=== PATIENT | female | born 1955 | race Caucasian/White ===

== ENCOUNTER 2024-03-21 20:56 | Inpatient (IN) | payer OTHER, MEDICARE, SELFPAY ==
[2024-03-21 20:56] VITALS: BP 125/92; PULSE 107; RESP 16; TEMP 36.5; O2SAT 98; BMI 25.4
--- NOTE | 2024-03-21 21:00 | EKG12_ITS ---
Test Reason : CP Blood Pressure : */* mmHG Vent. Rate : 107 BPM Atrial Rate : 107 BPM P-R Int : 178 ms QRS Dur : 78 ms QT Int : 356 ms P-R-T Axes : 72 39 55 degrees QTcB Int : 475 ms Sinus tachycardia Otherwise normal ECG Confirmed by ROBERT KUHN, TANNER ([id number]), order editor HARRISON GRAY ([id number]) on 03/22/2024 8:23:36 AM Referred By: Confirmed By: TANNER JONES MD
--- NOTE | 2024-03-21 21:18 | RAD_ITS ---
STUDY: X-RAY CHEST REASON FOR EXAM: Female, 68 years old. chest pain TECHNIQUE: AP portable COMPARISON: None. FINDINGS: The lungs are clear and expanded. There is no demonstrated pleural abnormality. Normal size heart. Normal mediastinum and mily. Normal visualized pulmonary arteries. Normal visualized aortic arch and descending thoracic aorta. Normal visualized thoracic spine. Normal visualized ribs, clavicles, and shoulders. There is no demonstrated abnormality of the visualized soft tissue structures of the upper abdomen. RAD/Chest 1 View (Portable) IMPRESSION: Normal x-ray examination of the chest. Electronically Signed: Tee Henry MD at 21:33 EST ,
[2024-03-21 21:24] VITALS: O2SAT 98
[2024-03-21 21:29] LABS: Absolute Lymphocyte Count 0.79 X10^3/uL (0.83-4.51); Absolute Neutrophil Count 4.3 X10^3/uL (2.0-7.7); Basophil# 0.06 X10^3/uL; Basophil% 1.1 % (0-1); Eosinophil# 0.05 X10^3/uL; Eosinophils% 0.9 % (0-5); Hematocrit 42.2 % (37-47); Hemoglobin 14.2 g/dL (12.0-15.0); Lymphocyte # 0.79 X10^3/ul (0.83-4.51); Lymphocyte % 13.9 % (19-41); Mean Corp Hgb Conc 33.6 g/dL (32-36); Mean Corpuscular Hgb 29.3 pg (27.0-32.0); Mean Platelet Vol. 11.1 fl (6.2-12.0); Monocyte# 0.44 X10^3/uL; Monocyte% 7.7 % (0-10); NRBC Flagged by Analyzer 0 % (0-5); Neutrophil # 4.34 X10^3/uL (2.7-7.7); Platelet Count 190 K/mm3 (150-450); RBC Distribution Width CV 13.2 % (11.6-14.6); RBC Distribution Width SD 41.5 fl (35.1-43.9); Red Blood Count 4.85 M/mm3 (4.2-5.4); White Blood Count 5.7 K/mm3 (4.4-11.0)
--- NOTE | 2024-03-21 21:37 | ED.VIS.CHEST ---
HPI History of Present Illness Chief Complaint: Chest Pain Informant: patient Onset/Context/Timing Onset: Today Activity at onset: gradual Timing: Continuous Quality: Positive for Heaviness Location: Substernal Current Severity: Gone Maximum Severity: Mild Worsened By: Nothing Relieved By: Nothing Associated Symptoms: Positive for Dyspnea and Palpitations; Negative for Nausea, Vomiting, Diaphoresis, Cough, Fever, Lightheadedness or Acid Reflux Narrative Narrative: 68-year-old female history of anemia. No cardiac history. Driving to work she said when she parked her car and was walking into work she felt palpitations and chest tightness. Symptoms began around 630. She had the rest when she got into the locker room. Told him she did not think she could work and came in the emergency department to be evaluated. Denies any history of cardiac disease. No prior cardiac cath. She has not had recent chest pain or shortness of breath. She has had no recent exertional chest pain or exertional dyspnea. No history of DVT or PE. No risk factors. Denies any recent travel, surgery or immobilization. No calf pain or swelling. No hemoptysis. Prior Similar Symptoms: No Recent Illness/Hospitalization: No PE Risk Factors: Negative for Recent Travel/Surgery, Recent Immobilization, Prior DVT or PE, Cancer or OCP + Smoking + >/=35 TAD Risk Factors: Negative for Marfan's Syndrome [facility] Medical History Anemia Home Medications ?Medication ?Instructions ?Recorded ?Last Taken ?Type ferrous sulfate 325 mg (65 mg 325 mg PO BID 03/21/24 Unknown History iron) tablet Allergy/AdvReac Type Severity Reaction Status Date / Time No Known Allergies Allergy Verified 03/21/24 20:56 Social History Smoking Status: Former smoker ROS ROS ED ROS Narrative Exertional chest pain and dyspnea at night. Not recently otherwise. Constitutional Constitutional ED: Denies chills or fever(s) Eyes Eyes: Reports none ENT ENT ED: Denies ear pain Cardiovascular Cardiovascular: Reports as per HPI, chest pain and palpitations Respiratory/Chest Respiratory/Chest: Reports dyspnea on exertion; Denies cough Gastrointestinal Gastrointestinal: Denies abdominal pain or constipation Genitourinary Genitourinary ED: Denies dysuria or hematuria Musculoskeletal Musculoskeletal: Denies arthralgias Integumentary Denies abscess Neurologic Neurologic: Denies headache(s) Psychiatric Psychiatric: Denies anxiety or depression Endocrine Endocrinology: Denies cold intolerance Hematologic/Lymphatic Hematologic/Lymphatic: Denies easy bleeding Allergic/Immunologic Allergic/Immunologic ED: Denies mouth swelling, tongue swelling or urticaria EXAM Physical Exam Narrative Exam Narrative: 68-year-old female vital signs stable afebrile. Does not look septic toxic any distress. Pulse ox 98% on room air no hypoxia. Currently symptom-free pain-free. H EENT exam unremarkable. Neck nontender no JVD. Lungs clear to auscultation bilaterally. Heart regular rhythm no murmur. Chest wall nontender. Abdomen soft nontender. Moving all 4 extremities. Calves are nontender without edema or cords. Equal symmetrical radial pulses. Neurologically she is awake and alert no focal motor deficits. Answering questions and following commands. Const Vital Signs: 03/21/24 20:56 03/21/24 21:24 03/21/24 21:25 Temperature 97.7 F L Temperature Source Oral Pulse Rate 107 H Respiratory Rate 16 Respiratory Effort Normal Non-Labored Blood Pressure 125/92 H Blood Pressure Mean 103 Pulse Ox 98 98 Oxygen Delivery Method Room Air Room Air 03/21/24 21:45 03/21/24 22:00 03/21/24 23:00 Temperature Temperature Source Pulse Rate 102 H 100 82 Respiratory Rate 16 15 21 H Respiratory Effort Blood Pressure 128/85 H 127/90 H 131/95 H Blood Pressure Mean 99 102 107 Pulse Ox Oxygen Delivery Method Positive well nourished and well developed; Negative for obese, cachectic, contractures or unkempt General Appearance ED: well developed and NAD; Negative for unkempt, cachectic, contractures or pallor Nutritional Appearance: Negative for cachectic or obese HEENT Reports moist mucous membranes normocephalic and atraumatic Eyes PERRL and EOMs intact bilaterally Neck no lymphadenopathy, supple and no JVD General: Negative for tenderness Chest Wall inspection of chest normal and palpation of chest normal Chest: Negative for tenderness Resp normal respiratory effort and clear to auscultation bilaterally Effort and Inspection: Negative for respiratory distress Auscultation: Negative for rales, rhonchi, wheezes or diminished lung sounds Cardio regular rhythm, S1 normal heart sound, S2 normal heart sound and no murmurs Rate: Negative for bradycardia Rhythm: Negative for abnormal rhythm Peripheral Pulses: pulses 2+ throughout GI normal to inspection, nondistended, normoactive bowel sounds, soft to palpation, non-tender, non-distended and no masses Back/Spine no CVA tenderness and no thoracic nor lumbar tenderness General Back: Negative for CVA tenderness Cervical Spine: Negative for cervical spine tenderness Extremity normal to inspection General Extremety ED: Negative for edema or pulses abnormal General Extremity: Negative for edema or pulses abnormal Neuro oriented x3 and CN's II-XII intact bilaterally Sensorium / Orientation: awake, alert, oriented to person, oriented to place and oriented to time; Negative for confused, lethargic or stuporous Motor Exam: strength 5/5 throughout Psych mental status grossly normal Appearance: Negative for unkempt Attitude: No agitated Mood & Affect: Negative for depressed, anxious or tearful Skin no rashes or lesions noted and no wounds General Skin Exam: Negative for jaundice or pallor Rashes: No rashes noted Trauma: Negative for abrasion or laceration MDM MDM MDM Narrative Medical decision making narrative: 68-year-old female with exertional chest pain shortness of breath tonight. Undergo cardiac workup. Exam is benign. Currently symptom-free pain-free. No cardiac history. No history or risk factors of DVT or PE. Repeat exam patient is doing well at 11:07 PM. Pain-free. Given her exertional symptoms, exertional chest pain and elevated troponin I will speak to the hospitalist about admitting her for further evaluation and workup. History & Record Review Discussion w/independent historian: Patient Additional record(s) reviewed:: Prior inpatient record, Prior outpatient record, Prior ED visit and Prior labs Lab Data Attestation: I reviewed the patient's lab results. Lab results narrative: CBC shows a white count of 5. H&H 14 and 42. Platelets 190. Chest x-ray normal. Chemistry shows At 9. BUN 24 creatinine 0.8. Glucose 139. Troponin elevated 98. Labs: Laboratory Results - last 24 hr 03/21/24 21:12 WBC 5.7 RBC 4.85 Hgb 14.2 Hct 42.2 MCV 87.0 MCH 29.3 MCHC 33.6 RDW Std Deviation 41.5 RDW Coeff of Trevor 13.2 Plt Count 190 MPV 11.1 Immature Gran % (Auto) 0.400 Neut % (Auto) 76.0 H Lymph % (Auto) 13.9 L [place] % (Auto) 7.7 Eos % (Auto) 0.9 Baso % (Auto) 1.1 H Absolute Neuts (auto) 4.3 Absolute Lymphs (auto) 0.79 L Nucleated RBC % 0 Sodium 138 Potassium 3.8 Chloride 106 Carbon Dioxide 23.0 Anion Gap 9 BUN 24 H Creatinine 0.86 Estim Creat Clear Calc 62.05 Est GFR (MDRD) Af Amer 85 Est GFR (MDRD) Non-Af 70 BUN/Creatinine Ratio 28.0 H Glucose 139 H Calcium 9.4 Troponin I High Sens 98 H Radiography Chest X-Ray - ED: 1 View, Read by ED Physician, Normal, Heart, Lungs, Mediastinum, Bony Structures, No Acute Disease and Chronic Changes Diagnostic Testing: Clinical Impression(s) from Imaging Studies Chest X-Ray 03/21/24 21:18 IMPRESSION: Normal x-ray examination of the chest. Electronically Signed: Tee Henry MD at 21:33 EST Reading Location ID and State: [facility] / [place] Tel , Service support , Chest x-ray, portable, single view interpreted by myself and radiologist shows no acute abnormality. Normal cardiac silhouette. Normal mediastinum Rhythm Strip Rhythm Strip: Sinus Tach Rate: 107 Ectopy: None EKG Initial EKG: Attestation: I personally reviewed and interpreted this EKG as follows: Interpretation: Sinus Rhythm, No Acute Injury Pattern and Sinus Tachycardia Comments: Sinus tachycardia rate of 107 no acute signs of HI or ischemia. Discharge Plan Triage Chief Complaint: Chest Pain ED Provider: Kirby Weir Dx/Rx/DC Orders Clinical Impression: Chest pain, Elevated troponin Prescriptions: No Action ferrous sulfate 325 mg (65 mg iron) tablet 325 mg PO BID Primary Care Provider: Care Physician,No Primary Referrals: Care Physician,No Primary [Primary Care Provider] - Print Language: Syriac Disposition Disposition: [facility]
[2024-03-21 21:45] VITALS: BP 128/85; PULSE 102; RESP 16
--- OUTSIDE RECORDS SUMMARY | 2024-03-21 21:49 | XMS RPT_ITS | CCD ---
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 Role Phone Pcp, No Primary Care Provider Unavailabl e Sheets DO, Priya Foley Primary Care Provider SHEETS, PRIYA Foley Referring Unavailable SHEETS, PRIYA Foley Primary Care Unavailable SHEETS, PRIYA Foley Attending Unavailable SHEETS, PRIYA Foley Primary Care Unavailable MELVIN CARDENAS Admitting Unavailable WHINMELVIN LEWIS Attending Unavailable SHEETS, PRIYA Foley Attending Unavailable SHEETS, PRIYA Foley Referring Unavailable SHEETS, PRIYA Foley Referring Unavailable SHEETS, PRIYA Foley Primary Care Unavailable Medications Completed/Discontinued Medications Medication Drug Class(es) Dates Sig (Normalized) Sig (Original) acetaminophen 500 mg oral tablet (2 sources) Start: 03-13-2022 take 2 tablets by mouth every eight hours as needed acetaminophen (TYLENOL) 500 mg tablet Take 2 tablets by mouth every 8 hours as needed for pain or fever (specify) (temp 101F). 0 03/13/2022 Active Comment on above: Take 2 tablets by mo ut every 8 hours as needed for pain or fever (specify) (temp 101F). ascorbic acid 500 mg oral tablet (3 sources) Vitamin C Start: 03-13-2022 End: 04-20-2022 take 1 tablet by mouth twice daily at mealtime ascorbic acid, vitamin C, (VITAMIN C) 500 mg tablet Indications: Other iron deficiency anemias Take 1 tablet by mouth twice daily with meals. 180 tablet 1 04/20/2022 Active Comment on above: Take 1 tablet by jolie twice daily with meals. ferrous sulfate 325 mg oral tablet (3 sources) Start: 03-13-2022 End: 04-20-2022 take 1 tablet by mouth twice daily at mealtime ferrous sulfate 325 mg (65 mg iron) tablet Indications: Other iron deficiency anemias Take 1 tablet by mouth twice daily with meals. 180 tablet 1 04/20/2022 Active Comment on above: Take 1 tablet by jolie th twice daily with meals. pantoprazole 40 mg delayed release oral tablet (3 sources) Proton Pump Inhibitor Start: 03-14-2022 End: 04-20-2022 take 1 tablet by mouth once daily, then take 6 tablets by mouth in the morning pantoprazole DR (PROTONIX) 40 mg tablet Indications: GERD without esophagitis Take 1 tablet by mouth DAILY (6 AM). 90 tablet 1 04/20/2022 Active Comment on above: Take 1 tablet by jolie th DAILY (6 AM). Problems Problem Classification Problem Date Documented Date Episodic/Chronic Deficiency and other anemia (2 sources) Anemia; Translations: [Anemia, unspecified] Onset: 03-12-2022 03-12-2022 Episodic Deficiency and other anemia (3 sources) Iron deficiency anemia; Translations: [Other iron deficiency anemias] Onset: 03-12-2022 Episodic Deficiency and other anemia (2 sources) Other iron deficiency anemias; Translations: [Other iron deficiency anemias] Onset: 03-23-2022 Episodic Deficiency and other anemia (1 source) Anemia, unspecified; Translations: [Anemia, unspecified type] Onset: 03-12-2022 Episodic Esophageal disorders (2 sources) Gastroesophageal reflux disease without esophagitis; Translations: [Gastro-esophageal reflux disease without esophagitis] Onset: 04-20-2022 Chronic Other circulatory disease (2 sources) Elevated blood-pressure reading without diagnosis of hypertension; Translations: [Elevated blood-pressure reading, without diagnosis of hypertension] Episodic Other circulatory disease (1 source) Elevated blood-pressure reading, without diagnosis of hypertension; Translations: [Elevated blood pressure reading without diagnosis of hypertension] Onset: 04-20-2022 Episodic Other infections; including parasitic (2 sources) History of hepatitis C; Translations: [Personal history of other infectious and parasitic diseases] Onset: 03-12-2022 03-12-2022 Episodic Residual codes; unclassified (1 source) Acquired absence of both cervix and uterus; Translations: [Status post hysterectomy] Onset: 04-20-2022 Episodic Spondylosis; intervertebral disc disorders; other back problems (2 sources) Backache; Translations: [Dorsalgia, unspecified] Onset: 03-12-2022 03-12-2022 Episodic Unclassified (1 source) Acute left-sided low back pain without sciatica; Translations: [Acute left-sided low back pain without sciatica] Onset: 03-12-2022 Results Test Name Value Interpretation Reference Range Facility [facility] 04-20-2022 CNOV Office Visit (AGFAMP JOAN) ANA JONES ([id number]) 1955 F Date Time Provider Department 04/20/22 10:40 AM PRIYA BLOUNT During your visit today, we recorded the following information about you: Temperature Pulse Respiration Blood pressure 97.6 degrees 61/minute 16/minute 136/84 Weight Height 67.6 kg 1.607 m Priya Blount DO 04/20/2022 10:55 AM Signed SUBJECTIVE: 66 year old female for annual routine pap and checkup. I have fully reviewed the past medical, surgical, social and family history and updated the Histories section of [facility]. She has a history of anemia Her fecal occult blood test was negative She is taking iron once a day, rather than twice. Her Hb has been improving over the past month She had a total hysterectomy, no longer needs pap tests. She eats a healthy diet, and is going to start riding her indoor [employer] bicycle regularly. She does not use tobacco or nicotine products. No LMP recorded. ALLERGIES No Known Allergies Current Outpatient Medications Medication Sig Dispense Refill acetaminophen (TYLENOL) 500 mg tablet Take 2 tablets by mouth every 8 hours as needed for pain or fever (specify) (temp 101F). ascorbic acid, vitamin C, (VITAMIN C) 500 mg tablet Take 1 tablet by mouth twice daily with meals. 60 tablet 0 ferrous sulfate 325 mg (65 mg iron) tablet Take 1 tablet by mouth twice daily with meals. [address] (PROTONIX) 40 mg tablet Take 1 tablet by mouth DAILY (6 AM). 30 tablet 0 No current facility-administered medications for this visit. ACTIVE PROBLEM LIST Absolute Anemia History of Hepatitis C Acute Left-Sided Back Pain Social History Tobacco Use Smoking status: Former Types: Cigarettes Smokeless tobacco: Never Substance Use Topics Alcohol use: Yes Comment: very rarely. Drug use: Yes Types: Marijuana Family History Problem Relation Age of Onset Hypertension Mother Hypertension Father Heart Attack Father had to have a triple bypass other (throat cancer) Father Reviewed past medical history, family history and surgeries. All medications and supplements were reviewed with the patient. REVIEW OF SYSTEMS GENERAL: No weight loss, malaise or fevers HEENT: Negative for frequent or significant headaches, No changes in hearing or vision, no nose bleeds or other nasal problems NECK: Negative for lumps, goiter, pain and significant neck swelling RESPIRATORY: Negative for cough, hemoptysis, wheezing, COPD, dyspnea or shortness of breath CARDIOVASCULAR: Negative for chest pain, leg swelling, hypertension, CHF or palpitations GI: No nausea, vomiting, or diarrhea : No history of dysuria, frequency or incontinence MUSCULOSKELETAL: Negative for joint pain or swelling, back pain or muscle pain SKIN: Negative for lesions, rash, and itching PSYCH: Negative for sleep disturbance, mood disorder and recent psychosocial stressors HEMATOLOGY/LYMPHOLOGY: Negative for prolonged bleeding, bruising easily or swollen nodes ENDOCRINE: Negative for cold or heat intolerance, polyuria, polydipsia and goiter NEURO: No history of headaches, syncope, paralysis, seizures or tremors PHYSICAL EXAMINATION: BP 146/90 Pulse 61 Temp 36.4 ?C (97.6 ?F) Resp 16 Ht 160.7 cm (5' 3.25 ) Wt 67.6 kg (149 lb) SpO2 100% BMI 26.19 kg/m? General appearance: Well appearing, alert, in no acute distress, well-hydrated, well nourished. Skin: Skin color, texture, turgor normal, no suspicious rashes or lesions Head: Normocephalic, no masses, lesions, tenderness or abnormalities Eyes: Anicteric sclera. Pupils are equally round and reactive to light. Extraocular movements are intact. Ears: External ears normal, canals clear Nose/Sinuses: Nares normal, septum midline, mucosa normal, no drainage or sinus tenderness Oropharynx: Lips, mucosa, and tongue normal, teeth and gums normal, oropharynx normal Neck: Supple, no adenopathy; thyroid symmetric, normal size, no bruits Back: Normal exam Lungs: Lungs clear to auscultation. No wheezing, rhonchi, rales. Heart: RRR without murmur, gallop, or rubs. No ectopy Abdomen: Normal abdominal exam, Abdomen soft, non-tender. Bowel sounds normal. No masses, organomegaly Extremities: No deformities, edema, skin discoloration, clubbing or cyanosis. Good capillary refill. Musculoskeletal: No joint swelling, deformity, or tenderness Peripheral pulses: Normal Neuro: Gait normal. Reflexes normal and symmetric. Sensation grossly intact. ASSESSMENT/PLAN: 1. Well adult exam - ICD9: V70.0, ICD10: Z00.00 (primary diagnosis) - Counseled on healthy diet and regular exercise - Calcium intake with supplements or by diet of 1000 mg/day for under 50, 1204-0939 mg/day for 50+ 2. Other iron deficiency anemias - ICD9: 280.8, ICD10: D50.8 - ASCORBIC ACID (VITAMIN C) 500 MG TABLET (more content not included)... Normal [facility] HEMOGLOBIN (HGB)on Hemoglobin (Bld) [Mass/Vol] 13.0 g/dL 11.5 - 15.5 g/dL [facility] Hgb Bld-ncon 04-20-2022 Hemoglobin (Bld) [Mass/Vol] 13.0 g/dL Normal 11.5-15.5 [facility] Comment on above: Order Comment: Speci men Type: BLOOD SPECIMEN Ordering Facility: [facility] Address: [address] [place] [id number] Performed By: #### 7 18-7 #### [facility] CLIA [id number] [address] [place] [id number] [place] CNOVon 03-23-2022 CNOV Office Visit (SHELLY FRANCO) ANA JONES ([id number]) 1955 F Date Time Provider Department 03/23/22 2:20 PM PRIYA BLOUNT During your visit today, we recorded the following information about you: Temperature Pulse Respiration Blood pressure 98.4 degrees 79/minute 16/minute 130/90 Weight Height 66.1 kg 1.607 m Priya Blount DO 03/23/2022 3:07 PM Signed Subjective HPI Pt is here for acute visit after hospitalization. She does not plan on establishing with this office. She would like to establish with primary care at [facility] in [place]. She injured her back at work, was seen in the ED on 03/12/22 She was hospitalized at [facility] from 03/12 to 03/13 for an incidental finding of anemia. Fecal occult blood test was negative. Hb was 6.5 in the ED, was rechecked before discharge and was 8.1. She received 1 unit of PRBCs, and was started on PPIs, Vitamin c and oral iron, which she is taking as directed. It was recommended that the patient follow up with her GI for anemia. She has seen Dr. Farris in the past for hepatitis c, and plans to follow up with him. She has been feeling OK since leaving the hospital. Her blood pressure is mildly elevated today. She has white coat syndrome. She does not use any tobacco or nicotine products. ALLERGIES No Known Allergies Current Outpatient Medications Medication Sig Dispense Refill acetaminophen (TYLENOL) 500 mg tablet Take 2 tablets by mouth every 8 hours as needed for pain or fever (specify) (temp 101F). ascorbic acid, vitamin C, (VITAMIN C) 500 mg tablet Take 1 tablet by mouth twice daily with meals. 60 tablet 0 ferrous sulfate 325 mg (65 mg iron) tablet Take 1 tablet by mouth twice daily with meals. [address] (PROTONIX) 40 mg tablet Take 1 tablet by mouth DAILY (6 AM). 30 tablet 0 No current facility-administered medications for this visit. ACTIVE PROBLEM LIST Anemia History of Hepatitis C Acute Left-Sided Back Pain Social History Tobacco Use Smoking status: Former Types: Cigarettes Smokeless tobacco: Never Substance Use Topics Alcohol use: Yes Comment: very rarely. Drug use: Yes Types: Marijuana Family History Problem Relation Age of Onset Hypertension Mother Hypertension Father Heart Attack Father had to have a triple bypass other (throat cancer) Father Reviewed past medical history, family history and surgeries. All medications and supplements were reviewed with the patient. Review of Systems Constitutional: Negative for chills, diaphoresis, fever, malaise/fatigue and weight loss. HENT: Negative for ear pain and hearing loss. Eyes: Negative for blurred vision and double vision. Respiratory: Negative for cough and shortness of breath. Cardiovascular: Negative for chest pain, palpitations and leg swelling. Gastrointestinal: Negative for constipation, diarrhea and heartburn. Genitourinary: Negative for dysuria and frequency. Musculoskeletal: Negative for back pain, falls, joint pain and myalgias. Skin: Negative for itching and rash. Neurological: Negative for dizziness, weakness and headaches. Endo/Heme/Allergies: Does not bruise/bleed easily. Psychiatric/Behavioral: Negative for depression and substance abuse. The patient does not have insomnia. Objective BP 128/88 Pulse 79 Temp 36.9 ?C (98.4 ?F) Resp 16 Ht 160.7 cm (5' 3.25 ) Wt 66.1 kg (145 lb 12.8 oz) SpO2 99% BMI 25.62 kg/m? Physical Exam Constitutional: Appearance: Normal appearance. HENT: Head: Normocephalic and atraumatic. Nose: Nose normal. Mouth/Throat: Mouth: Mucous membranes are moist. Dentition: Normal dentition. Eyes: General: Lids are normal. Extraocular Movements: Extraocular movements intact. Conjunctiva/sclera: Conjunctivae normal. Pupils: Pupils are equal, round, and reactive to light. Neck: Thyroid: No thyroid mass or thyromegaly. Vascular: No carotid bruit. Trachea: Phonation normal. Cardiovascular: Rate and Rhythm: Normal rate and regular rhythm. Heart sounds: Normal heart sounds. No murmur heard. No friction rub. No gallop. Pulmonary: Effort: Pulmonary effort is normal. Breath sounds: Normal breath sounds. No wheezing or rales. Abdominal: General: Bowel sounds are normal. There is no distension. Palpations: Abdomen is soft. There is no mass. Tenderness: There is no abdominal tenderness. Musculoskeletal: General: No swelling or tenderness. Normal range of motion. Cervical back: Normal range of motion and neck supple. No edema. Lymphadenopathy: Cervical: No cervical adenopathy. Skin: General: Skin is warm and dry. Findings: No erythema or rash. Nails: There is no clubbing. Neurological: Mental Status: She is alert and oriented to person, place, and time. Cranial Nerves: No cranial nerve deficit. Motor: Motor fu (more content not included)... Normal [facility] HEMOGLOBIN (HGB)on Hemoglobin (Bld) [Mass/Vol] 10.9 g/dL Low 11.5 - 15.5 g/dL [facility] Hgb Bld-mCncon 03-23-2022 Hemoglobin (Bld) [Mass/Vol] 10.9 g/dL Low 11.5-15.5 [facility] Comment on above: Order Comment: Speci men Type: BLOOD SPECIMEN Ordering Facility: [facility] Address: [address] [place] [address] Performed By: #### 7 18-7 #### [facility] CLIA [id number] [address] [place] [address] [place] Basic metabolic 2000 panelon 03-13-2022 Anion gap [Moles/Vol] 7 mmol/L Low 9-18 [facility] Comment on above: Order Comment: Speci men Type: BLOOD SPECIMEN Ordering Facility: [facility] Address: [address] [address] Performed By: #### 7 18-7 #### [facility] CLIA [id number] [address] [place] [address] [place] Calcium [Mass/Vol] 8.7 mg/dL Normal 8.5-10.2 [facility] Comment on above: Order Comment: Speci men Type: BLOOD SPECIMEN Ordering Facility: [facility] Address: [address] [address] Performed By: #### 7 18-7 #### [facility] CLIA [id number] [address] [place] [address] [place] Chloride [Moles/Vol] 107 mmol/L High 97-105 [facility] Comment on above: Order Comment: Speci men Type: BLOOD SPECIMEN Ordering Facility: [facility] Address: [address] [address] Performed By: #### 7 18-7 #### [facility] CLIA [id number] [address] [place] [address] [place] CO2 [Moles/Vol] 24 mmol/L Normal 22-30 [facility] Comment on above: Order Comment: Rudy waddell Type: BLOOD SPECIMEN Ordering Facility: [facility] Address: [address] [place] [address] Performed By: #### 7 18-7 #### [facility] CLIA [id number] [address] [place] Creatinine [Mass/Vol] 0.67 mg/dL Normal 0.58-0.96 [facility] Comment on above: Order Comment: Rudy waddell Type: BLOOD SPECIMEN Ordering Facility: [facility] Address: [address] [place] [address] Performed By: #### 7 18-7 #### [facility] CLIA [id number] [address] [place] [address] ESTIMATED GLOMERULAR FILTRATION RATE 97 mL/min/1.73m??? Normal >=60 [facility] Comment on above: Order Comment: Rudy waddell Type: BLOOD SPECIMEN Ordering Facility: [facility] Address: [address] [place] [address] Result Comment: Kavita mated Glomerular Filtration Rate (eGFR) is calculated using the 2020 CKD-EPI creatinine equation. This equation utilizes serum creatinine, sex, and age as parameters. The creatinine assay has traceable calibration to isotope dilution-mass spectrometry. Refer to KDIGO guidelines for clinical interpretation. In patients with unstable renal function, e.g. those with acute kidney injury, the eGFR may not accurately reflect actual GFR. Performed By: #### 7 18-7 #### [facility] CLIA [id number] [address] [place] [address] [facility] Glucose [Mass/Vol] 91 mg/dL Normal 74-99 [facility] Comment on above: Order Comment: Rudy waddell Type: BLOOD SPECIMEN Ordering Facility: [facility] Address: [address] [place] [address] Result Comment: The [place] Diabetes Association (ADA) provides guidance for cutoff values for fasting glucose and random glucose. The ADA defines fasting as no caloric intake for at least 8 hours. Fasting plasma glucose results between 100 to 125 mg/dL indicate increased risk for diabetes (prediabetes). Fasting plasma glucose results greater than or equal to 126 mg/dL meet the criteria for diagnosis of diabetes. In the absence of unequivocal hyperglycemia, results should be confirmed by repeat testing. In a patient with classic symptoms of hyperglycemia or hyperglycemic crisis, random plasma glucose results greater than or equal to 200 mg/dL meet the criteria for diagnosis of diabetes. Reference: Standards of Medical Care in Diabetes 2016, [place] Diabetes Association. Diabetes Care. 2016.39(Suppl 1). Performed By: #### 7 18-7 #### [facility] CLIA [id number] [address] [place] [address] [place] Potassium [Moles/Vol] 4.4 mmol/L Normal 3.7-5.1 [facility] Comment on above: Order Comment: Speci men Type: BLOOD SPECIMEN Ordering Facility: [facility] Address: [address] [address] Performed By: #### 7 18-7 #### [facility] CLIA [id number] [address] [place] [address] [place] Sodium [Moles/Vol] 138 mmol/L Normal 136-144 [facility] Comment on above: Order Comment: Speci men Type: BLOOD SPECIMEN Ordering Facility: [facility] Address: [address] [address] Performed By: #### 7 18-7 #### [facility] CLIA [id number] [address] [place] [address] [place] Urea nitrogen [Mass/Vol] 17 mg/dL Normal 7-21 [facility] Comment on above: Order Comment: Speci men Type: BLOOD SPECIMEN Ordering Facility: [facility] Address: [address] [address] Performed By: #### 7 18-7 #### [facility] CLIA [id number] [address] [place] CBC panel Auto (Bld)on 03-13 Erythrocyte distribution width (RBC) [Ratio] 16.4 % High 11.5-15.0 [facility] Comment on above: Order Comment: Speci men Type: BLOOD SPECIMEN Ordering Facility: [facility] Address: [address] [place] [address] Performed By: #### 7 18-7 #### [facility] CLIA [id number] [address] [place] [address] Hematocrit (Bld) [Volume fraction] 26.3 % Low 36.0-46.0 [facility] Comment on above: Order Comment: Speci men Type: BLOOD SPECIMEN Ordering Facility: [facility] Address: [address] [place] [address] Performed By: #### 7 18-7 #### [facility] CLIA [id number] [address] [place] [address] Hemoglobin (Bld) [Mass/Vol] 8.1 g/dL Low 11.5-15.5 [facility] Comment on above: Order Comment: Speci men Type: BLOOD SPECIMEN Ordering Facility: [facility] Address: [address] [place] [address] Performed By: #### 7 18-7 #### [facility] CLIA [id number] [address] [place] [address] [place] MCH (RBC) [Entitic mass] 24.8 pg Low 26.0-34.0 [facility] Comment on above: Order Comment: Speci men Type: BLOOD SPECIMEN Ordering Facility: [facility] Address: [address] [place] [address] Performed By: #### 7 18-7 #### [facility] CLIA [id number] [address] [place] [address] [place] MCHC (RBC) [Mass/Vol] 30.8 g/dL Normal 30.5-36.0 [facility] Comment on above: Order Comment: Speci men Type: BLOOD SPECIMEN Ordering Facility: [facility] Address: [address] [place] [address] Performed By: #### 7 18-7 #### [facility] CLIA [id number] [address] [place] [address] [place] MCV (RBC) [Entitic vol] 80.4 fL Normal 80.0-100.0 [facility] Comment on above: Order Comment: Speci men Type: BLOOD SPECIMEN Ordering Facility: [facility] Address: [address] [place] [address] Performed By: #### 7 18-7 #### [facility] CLIA [id number] [address] [place] [address] [place] Platelet mean volume (Bld) [Entitic vol] 10.6 fL Normal 9.0-12.7 [facility] Comment on above: Order Comment: Speci men Type: BLOOD SPECIMEN Ordering Facility: [facility] Address: [address] [place] [address] Performed By: #### 7 18-7 #### [facility] CLIA [id number] [address] [place] [address] [place] Platelets (Bld) [#/Vol] 206 10*3/uL Normal 150-400 [facility] Comment on above: Order Comment: Speci men Type: BLOOD SPECIMEN Ordering Facility: [facility] Address: [address] [place] [address] Performed By: #### 7 18-7 #### [facility] CLIA [id number] [address] [place] [address] [place] RBC (Bld) [#/Vol] 3.27 10*6/uL Low 3.90-5.20 [facility] Comment on above: Order Comment: Speci men Type: BLOOD SPECIMEN Ordering Facility: [facility] Address: [address] [place] [address] Performed By: #### 7 18-7 #### [facility] CLIA [id number] [address] [place] [address] [facility] [place] WBC (Bld) [#/Vol] 3.64 10*3/uL Low 3.70-11.00 [facility] Comment on above: Order Comment: Rudy waddell Type: BLOOD SPECIMEN Ordering Facility: [facility] Address: [address] [place] [address] [place] [address] Performed By: #### 7 18-7 #### [facility] CLIA [id number] [address] [place] [address] [facility] CNDSon 03-13-2022 CNDS HNO ID: [id number] Author: Lizzette Su APRN.[employer] Service: Hospital Medicine Author Type: Nurse Practitioner Type: Discharge Summary Filed: 03/13/2022 12:24 PM Note Text: Attestation signed by Melvin Cardenas MD at 05/05/2022 3:19 PM Attending Note I have personally reviewed the SAM note and have discussed the management of this patient with the SAM. Other additions or changes: As edited Signature: Melvin Cardenas MD, [facility], [facility] Date: March 12, 2022 Time: 7:19 PM DISCHARGE SUMMARY PATIENT NAME: Ana Jones Code Status: Not on file Date: 03/13/2022 Highest Readmission Risk Score: 14 The 30 day readmissions risk score is derived from an internally validated risk model which evaluates patient level characteristics, utilization history, medication orders and lab results up until the day of discharge. Patients with a score of 40 or above are considered highest risk for readmission. Specific patient level drivers will be listed at the bottom of the summary. Admission Information Admission Information ADMIT DATE: 03/12/2022 DISCHARGE DATE: 03/13/2022 MY DOCTORS AND MEDICAL TEAM: My Main Hospital Doctor: Melvin Cardenas MD Primary Care Provider: No Pcp My Medical Team Members: Treatment Team: Attending Provider: Melvin Cardenas MD MY CONDITION AT DISCHARGE: Stable REASON I WAS IN THE HOSPITAL: back pain, anemia SUMMARY OF WHAT HAPPENED WHILE I WAS IN THE HOSPITAL: Patient was admitted for back pain, anemia. You presented to [facility] for back pain which began at work leading you with inability to ambulate. You denied any radiation of pain without any associated urologic symptoms/paresthesias or bowel incontinence. Imagining was negative for acute findings. You initial lab work did reveal anemia with no findings of bleeding from bowel/bladder or other identifiable sources. Your last colonoscopy was around 10 years ago, you endorsed use of increased NSAID over the past week. You received 1 units of red blood cells with repeat blood work completed showing increased in counts, you also had a iron panel drawn which supported iron deficiency anemia and were started on oral iron supplementation, vitamin C tablets and a PPI for gastric protection. You state that your back pain has decreased and recommend continuing to rest with alternations between ice/heat. You may return to work on Friday 03/16 without any restrictions. It is recommended that you follow-up with your GI provider in 1 week for further evaluation of iron deficiency anemia. You will also need to establish with a PCP within 1 week of discharge. Contact information has been provider to you through care management. OTHER PROBLEMS/DIAGNOSIS: Principal Problem: Anemia Active Problems: History of hepatitis C Acute left-sided back pain Resolved Problems: * No resolved hospital problems. * OPERATIONS PERFORMED WHILE IN THE HOSPITAL: None IMPORTANT TEST/PROCEDURES: CT Scan TEST RESULTS NOT AVAILABLE AT THIS TIME: No pending results Discharge Disposition Activity When You Leave the Hospital Other: Follow activity guidelines as directed by your therapists Resume pre-hospital activity Diet Instructions Resume your pre-hospital diet For Pain When You Leave the Hospital Use acetaminophen (Tylenol) as recommended on the bottle Return to Work On the following date: 03/16/22 Follow Up Appointments Follow-Up Appointment with your primary care physician When: In 2 weeks Patient/Parents to call for appointment?: Yes Priya Blount DO [phone] [place] [address] PCP Requested Referral Additional Provider to Provider Information: You presented to [facility] for back pain which began at work leading you with inability to ambulate. You denied any radiation of pain without any associated urologic symptoms/paresthesias or bowel incontinence. Imagining was negative for acute findings. You initial lab work did reveal anemia with no findings of bleeding from bowel/bladder or other identifiable sources. Your last colonoscopy was around 10 years ago, you endorsed use of increased NSAID over the past week. You received 1 units of red blood cells with repeat blood work completed showing increased in counts, you also had a iron panel drawn which supported iron deficiency anemia and were started on oral iron supplementation, vitamin C tablets and a PPI for gastric protection. You state that your back pain has decreased and recommend continuing to rest with alternations between ice/heat. You may return to work on Friday 03/16 without any restrictions. It is recommended that you follow-up with your GI provider in 1 week for further evaluation of iron deficiency anemia. You will also (more content not included)... Normal [facility] Hemoccult Stl Ql IAon 2021 Lower GI hemoglobin IA Ql (Stl) Negative Normal Negative [facility] Comment on above: Order Comment: Speci men Type: STOOL SPECIMEN Ordering Facility: [facility] Address: [address] [place] [id number] Performed By: #### 2 9771-3 #### [facility] CLIA [id number] [address] [place], [place] [id number] [place] US DVT LOWER RTon 03-13-2022 US DVT LOWER RT * * *Final Report* * * DATE OF EXAM: Mar 13 2022 12:30PM LDU 1007 - US DVT LOWER RT / PROCEDURE REASON: Leg deep vein thrombosis (DVT) suspected * * * * Physician Interpretation * * * * EXAMINATION: RIGHT LOWER EXTREMITY DEEP VENOUS ULTRASOUND WITH DOPPLER IMAGING CLINICAL HISTORY: Right leg swelling TECHNIQUE: Grayscale with compression maneuvers, color Doppler and spectral Doppler imaging of the right proximal deep veins was performed. Grayscale with compression maneuvers of the peroneal and posterior tibial veins was performed. The right great and small saphenous veins were evaluated at their insertion to the deep system. The contralateral common femoral vein was imaged for comparison. Images were obtained and stored in a permanent archive. MQ: USLER_1 COMPARISON: None RESULT: RIGHT LOWER EXTREMITY PROXIMAL DEEP VEINS Distal External Iliac, Common Femoral and proximal Profunda Veins: Compression: Normal Doppler: Normal, spontaneous respirophasic flow. Normal response to augmentation. Femoral vein: Compression: Normal Doppler: Normal, spontaneous flow. Normal response to augmentation. Popliteal vein: Compression: Normal Doppler: Normal, spontaneous flow. Normal response to augmentation. CALF DEEP VEINS Peroneal veins: Normal compression. Posterior tibial veins: Normal compression. Gastrocnemius and Soleal veins: Not imaged. SUPERFICIAL VEINS Great saphenous: Patent and compressible at insertion into common femoral vein; not otherwise assessed. Small Saphenous: Patent and compressible in the proximal calf, not otherwise assessed. LEFT LOWER EXTREMITY (FOR COMPARISON) Common Femoral Vein: Compression: Normal Doppler: Normal, spontaneous respirophasic flow. Normal response to augmentation. IMPRESSION: Negative study for proximal DVT in the right lower extremity. Negative study for calf DVT in the right lower extremity. Negative study for superficial thrombophlebitis in the imaged segments of the right lower extremity. Exercise Teacher: PSCB Transcribe Date/Time: Mar 13 2022 12:39P Dictated by : TERRENCE YOUNG MD This examination was interpreted and the report reviewed and electronically signed by: TERRENCE YOUNG MD on Mar 13 2022 12:40PM EST [id number] Normal [facility] ALLIED HEALTHon 03-12-2022 ALLIED HEALTH HNO ID: [id number] Author: RT Lory(R) Service: ? Author Type: Recreational Programs Director Type: Allied Health Filed: 03/12/2022 8:23 AM Note Text: Radiology Service Progress Note DATE OF SERVICE: March 12, 2022 TIME: 8:22 AM PATIENT IDENTITY VERIFICATION COMPLETED USING TWO (2) STANDARD IDENTIFIERS: Name and Date of confirmed by patient verbally. FALL SCREENING: Has the patient had 2 falls in the last year or 1 fall with injury or currently using an Ambulatory Assistive Device (Walker, Cane, Wheelchair, Crutches, etc.)? Emergency Room Patient: Screened in ED PATIENT GENDER DATA: Female. status: : No status: NO. PATIENT RELEVANT IMPLANT DATA REVIEWED: Not Applicable ALLERGIES: Reviewed and unchanged CONTRAST ALLERGY: NO. EXAM: CT -CONTRAST INDUCED NEPHROPATHY RISK FACTORS: Patient age > 60 years CREATININE: Creatinine Date Value Ref Range Status 03/12/2022 0.68 0.58 - 0.96 mg/dL Final Estimated Glomerular Filtration Rate Date Value Ref Range Status 03/12/2022 97 >=60 mL/min/1.73m? Final Comment: Estimated Glomerular Filtration Rate (eGFR) is calculated using the 2020 CKD-EPI creatinine equation. This equation utilizes serum creatinine, sex, and age as parameters. The creatinine assay has traceable calibration to isotope dilution-mass spectrometry. Refer to KDIGO guidelines for clinical interpretation. In patients with unstable renal function, e.g. those with acute kidney injury, the eGFR may not accurately reflect actual GFR. P.O.C.T. RESULTS: POC done: Yes, See Lab Tab March 12, 2022 TREATMENT: N/A PERIPHERAL IV DATA: Inpatient - refer to LDA documentation RADIOLOGY DEPARTMENT: CT; Exam(s) Completed: Abdomen/Pelvis SIGNATURE: RT Lory(R) PATIENT NAME: Ana Jones DATE: March 12, 2022 TIME: 8:22 AM Normal [facility] Basic metabolic 2000 panelon 03-12-2022 Anion gap [Moles/Vol] 9 mmol/L Normal 9-18 [facility] Comment on above: Order Comment: Speci men Type: URINE SPECIMEN Ordering Facility: [facility] Address: [address] [place] [address] Performed By: #### L [id number] #### [facility] CLIA [id number] [address] [place] [address] [place] Calcium [Mass/Vol] 8.9 mg/dL Normal 8.5-10.2 [facility] Comment on above: Order Comment: Speci men Type: URINE SPECIMEN Ordering Facility: [facility] Address: [address] [place] [address] Performed By: #### L [id number] #### [facility] CLIA [id number] [address] [place] [address] [place] Chloride [Moles/Vol] 101 mmol/L Normal 97-105 [facility] Comment on above: Order Comment: Speci men Type: URINE SPECIMEN Ordering Facility: [facility] Address: [address] [place] [address] Performed By: #### L [id number] #### [facility] CLIA [id number] [address] [place] [address] [place] CO2 [Moles/Vol] 24 mmol/L Normal 22-30 [facility] Comment on above: Order Comment: Speci men Type: URINE SPECIMEN Ordering Facility: [facility] Address: [address] [place] [address] Performed By: #### L [id number] #### [facility] CLIA [id number] [address] [place] [address] [place] Creatinine [Mass/Vol] 0.68 mg/dL Normal 0.58-0.96 [facility] Comment on above: Order Comment: Speci men Type: URINE SPECIMEN Ordering Facility: [facility] Address: [address] [place] [address] Performed By: #### L [id number] #### [facility] CLIA [id number] [address] [place] [address] ESTIMATED GLOMERULAR FILTRATION RATE 97 mL/min/1.73m??? Normal >=60 [facility] Comment on above: Order Comment: Speci men Type: URINE SPECIMEN Ordering Facility: [facility] Address: [address] [place] [address] Result Comment: Kavita mated Glomerular Filtration Rate (eGFR) is calculated using the 2020 CKD-EPI creatinine equation. This equation utilizes serum creatinine, sex, and age as parameters. The creatinine assay has traceable calibration to isotope dilution-mass spectrometry. Refer to KDIGO guidelines for clinical interpretation. In patients with unstable renal function, e.g. those with acute kidney injury, the eGFR may not accurately reflect actual GFR. Performed By: #### L [id number] #### [facility] CLIA [id number] [address] [place] [address] [place] Glucose [Mass/Vol] 96 mg/dL Normal 74-99 [facility] Comment on above: Order Comment: Speci men Type: URINE SPECIMEN Ordering Facility: [facility] Address: [address] [place] [address] Result Comment: The [place] Diabetes Association (ADA) provides guidance for cutoff values for fasting glucose and random glucose. The ADA defines fasting as no caloric intake for at least 8 hours. Fasting plasma glucose results between 100 to 125 mg/dL indicate increased risk for diabetes (prediabetes). Fasting plasma glucose results greater than or equal to 126 mg/dL meet the criteria for diagnosis of diabetes. In the absence of unequivocal hyperglycemia, results should be confirmed by repeat testing. In a patient with classic symptoms of hyperglycemia or hyperglycemic crisis, random plasma glucose results greater than or equal to 200 mg/dL meet the criteria for diagnosis of diabetes. Reference: Standards of Medical Care in Diabetes 2016, Citizen [place] Diabetes Association. Diabetes Care. 2016.39(Suppl 1). Performed By: #### L [id number] #### [facility] CLIA [id number] [address] [place] [address] [place] Potassium [Moles/Vol] 3.9 mmol/L Normal 3.7-5.1 [facility] Comment on above: Order Comment: Speci men Type: URINE SPECIMEN Ordering Facility: [facility] Address: [address] [place] [address] Performed By: #### L [id number] #### [facility] CLIA [id number] [address] [place] [address] [place] Sodium [Moles/Vol] 134 mmol/L Low 136-144 [facility] Comment on above: Order Comment: Speci men Type: URINE SPECIMEN Ordering Facility: [facility] Address: [address] [place] [address] Performed By: #### L [id number] #### [facility] CLIA [id number] [address] [place] [address] [place] Urea nitrogen [Mass/Vol] 28 mg/dL High 7-21 [facility] Comment on above: Order Comment: Speci men Type: URINE SPECIMEN Ordering Facility: [facility] Address: [address] [place] [place] [address] Performed By: #### L [id number] #### [facility] CLIA [id number] [address] [place] [address] STATES [facility] CBC W Auto Differential pane l (Bld)on 03-12-2022 Basophils (Bld) [#/Vol] 0.05 10*3/uL Normal <0.11 [facility] Comment on above: Order Comment: Speci men Type: BLOOD SPECIMEN Ordering Facility: [facility] Address: [address] [place] [address] Performed By: #### 5 7021-8 #### [facility] CLIA [id number] [address] [place] [address] Basophils/100 WBC (Bld) 1.2 % Normal [facility] Comment on above: Order Comment: Speci men Type: BLOOD SPECIMEN Ordering Facility: [facility] Address: [address] [place] [address] Performed By: #### 5 7021-8 #### [facility] CLIA [id number] [address] [place] [address] Differential cell count method Nom (Bld) Auto Normal [facility] Comment on above: Order Comment: Speci men Type: BLOOD SPECIMEN Ordering Facility: [facility] Address: [address] [place] [address] Performed By: #### 5 7021-8 #### [facility] CLIA [id number] [address] [place] [address] [place] Eosinophils (Bld) [#/Vol] 0.09 10*3/uL Normal <0.46 [facility] Comment on above: Order Comment: Speci men Type: BLOOD SPECIMEN Ordering Facility: [facility] Address: [address] [place] [address] Performed By: #### 5 7021-8 #### [facility] CLIA [id number] [address] [place] [address] Eosinophils/100 WBC (Bld) 2.1 % Normal [facility] Comment on above: Order Comment: Speci men Type: BLOOD SPECIMEN Ordering Facility: [facility] Address: [address] [place] [address] Performed By: #### 5 7021-8 #### [facility] CLIA [id number] [address] [place] Erythrocyte distribution width (RBC) [Ratio] 15.7 % High 11.5-15.0 [facility] Comment on above: Order Comment: Speci men Type: BLOOD SPECIMEN Ordering Facility: [facility] Address: [address] [place] [address] Performed By: #### 5 7021-8 #### [facility] CLIA [id number] [address] [place] [address] [place] Hematocrit (Bld) [Volume fraction] 21.5 % Low 36.0-46.0 [facility] Comment on above: Order Comment: Speci men Type: BLOOD SPECIMEN Ordering Facility: [facility] Address: [address] [place] [address] Performed By: #### 5 7021-8 #### [facility] CLIA [id number] [address] [place] [address] [place] Hemoglobin (Bld) [Mass/Vol] 6.5 g/dL Low 11.5-15.5 [facility] Comment on above: Order Comment: Speci men Type: BLOOD SPECIMEN Ordering Facility: [facility] Address: [address] [place] [address] Performed By: #### 5 7021-8 #### [facility] CLIA [id number] [address] [place] Lymphocytes (Bld) [#/Vol] 0.80 10*3/uL Low 1.00-4.00 [facility] Comment on above: Order Comment: Speci men Type: BLOOD SPECIMEN Ordering Facility: [facility] Address: [address] [place] [address] Performed By: #### 5 7021-8 #### [facility] CLIA [id number] [address] [place] [address] Lymphocytes/100 WBC (Bld) 18.6 % Normal [facility] Comment on above: Order Comment: Speci men Type: BLOOD SPECIMEN Ordering Facility: [facility] Address: [address] [place] [address] Performed By: #### 5 7021-8 #### [facility] CLIA [id number] [address] STATES OF [facility] MCH (RBC) [Entitic mass] 24.1 pg Low 26.0-34.0 [facility] Comment on above: Order Comment: Speci men Type: BLOOD SPECIMEN Ordering Facility: [facility] Address: [address] [place] [address] Performed By: #### 5 7021-8 #### [facility] CLIA [id number] [address] [place] [address] MCHC (RBC) [Mass/Vol] 30.2 g/dL Low 30.5-36.0 [facility] Comment on above: Order Comment: Speci men Type: BLOOD SPECIMEN Ordering Facility: [facility] Address: [address] [place] [address] Performed By: #### 5 7021-8 #### [facility] CLIA [id number] [address] [place] [address] [place] [facility] MCV (RBC) [Entitic vol] 79.6 fL Low 80.0-100.0 [facility] Comment on above: Order Comment: Speci men Type: BLOOD SPECIMEN Ordering Facility: [facility] Address: [address] [place] [address] Performed By: #### 5 7021-8 #### [facility] CLIA [id number] [address] [place] [address] Monocytes (Bld) [#/Vol] 0.44 10*3/uL Normal <0.87 [facility] Comment on above: Order Comment: Speci men Type: BLOOD SPECIMEN Ordering Facility: [facility] Address: [address] [place] [address] Performed By: #### 5 7021-8 #### [facility] CLIA [id number] [address] [place], [place] [id number] [place] [address] [place] Monocytes/100 WBC (Bld) 10.3 % Normal [facility] Comment on above: Order Comment: Speci men Type: BLOOD SPECIMEN Ordering Facility: [facility] Address: [address] [place] [address] Performed By: #### 5 7021-8 #### [facility] CLIA [id number] [address] [place] [address] [place] Neutrophils (Bld) [#/Vol] 2.91 10*3/uL Normal 1.45-7.50 [facility] Comment on above: Order Comment: Speci men Type: BLOOD SPECIMEN Ordering Facility: [facility] Address: [address] [place] [address] Performed By: #### 5 7021-8 #### [facility] CLIA [id number] [address] [place] Neutrophils/100 WBC (Bld) 67.8 % Normal [facility] Comment on above: Order Comment: Speci men Type: BLOOD SPECIMEN Ordering Facility: [facility] Address: [address] [place] [address] Performed By: #### 5 7021-8 #### [facility] CLIA [id number] [address] [place] [id number] [place] Platelet mean volume (Bld) [Entitic vol] 10.9 fL Normal 9.0-12.7 [facility] Comment on above: Order Comment: Speci men Type: BLOOD SPECIMEN Ordering Facility: [facility] Address: [address] [place] [address] Performed By: #### 5 7021-8 #### [facility] CLIA [id number] [address] Platelets (Bld) [#/Vol] 216 10*3/uL Normal 150-400 [facility] Comment on above: Order Comment: Rudy waddell Type: BLOOD SPECIMEN Ordering Facility: [facility] Address: [address] [place] [address] Performed By: #### 5 7021-8 #### [facility] CLIA [id number] [address] RBC (Bld) [#/Vol] 2.70 10*6/uL Low 3.90-5.20 [facility] Comment on above: Order Comment: Rudy waddell Type: BLOOD SPECIMEN Ordering Facility: [facility] Address: [address] [place] [address] Performed By: #### 5 7021-8 #### [facility] CLIA [id number] [address] WBC (Bld) [#/Vol] 4.29 10*3/uL Normal 3.70-11.00 [facility] Comment on above: Order Comment: Rudy waddell Type: BLOOD SPECIMEN Ordering Facility: [facility] Address: [address] [place] [address] Performed By: #### 5 7021-8 #### [facility] CLIA [id number] [address] Maged 03-12-2022 HUYN Telephone (COLEMAN) ANA JONES ([id number]) 1955 F Date Time Provider Department 03/12/22 AMARIS CRAWFORD During your visit today, we recorded the following information about you: Amaris Crawford MD 03/12/2022 10:05 AM Signed RQB note error Allergies As of Date: 03/12/2022 (No Known Allergies) Date Reviewed: 03/12/2022 Reviewed by: Rafal Sommers MD - Fully Assessed Reason for Visit: Hospital To Hospital [[id number]] Facility-Administered Medications as of 03/12/2022 - iv contrast (radiology procedure) Problem List As Of Date: 03/12/2022 (None) Encounter Status:Closed by AMARIS CRAWFORD on 03/12/[address] [facility] [address] ABD/PEL W IVCONon 022 CT ABD/PEL W IVCON * * *Final Report* * * DATE OF EXAM: Mar 12 2022 8:29AM [facility] 0530 - CT ABD/PEL W IVCON / PROCEDURE REASON: Abdominal pain, acute, nonlocalized * * * * Physician Interpretation * * * * EXAMINATION: CT ABDOMEN AND PELVIS WITH IV CONTRAST CLINICAL HISTORY: Abdominal pain, trauma TECHNIQUE: CT of the abdomen and pelvis was performed using standard technique, scanning from just above the dome of the diaphragm to the symphysis pubis. MQ: CTAP_3 Contrast: IV: 100 ml of Omnipaque 300 : ml of CT Radiation dose: Integrated Dose-length product (DLP) for this visit = 311.96 mGy*cm. CT Dose Reduction Employed: Automated exposure control (AEC) COMPARISON: None. RESULT: Liver: There is a 1.1 cm cyst in the right lobe of the liver. There are multiple additional subcentimeter well-circumscribed lesions which are too small to fully characterize, however favored to represent additional cysts. Biliary: No bile duct dilation. Gallbladder is unremarkable. Spleen: No mass. No splenomegaly. Pancreas: No mass or duct dilation. Adrenals: No mass. Kidneys: No hydronephrosis or renal calculus. There are few subcentimeter low-attenuation lesions in the left kidney which are too small to fully characterize on this study, however statistically favored to represent cysts.. GI tract: No dilation or wall thickening. There are few diverticula within the sigmoid colon. No evidence of diverticulitis. Appendix is not definitively identified. No inflammatory changes adjacent to the cecum to suggest acute appendicitis. Lymph nodes: No abdominal or pelvic lymphadenopathy. Mesentery/Peritoneum: No ascites or mass. Retroperitoneum: No mass. Vasculature: - Abdominal aorta and iliac arteries: No aneurysm. - Celiac and SMA: Patent without stenosis. - Portal venous system (SMV, splenic vein, portal vein and branches): Patent. - Hepatic veins: Patent. Pelvis: No mass, ascites or fluid collection. Bladder is unremarkable. Bones/Soft Tissues: No significant finding. Lower thorax: Unremarkable. Automatic Dispenser Mechanic (topogram) images: No additional findings. IMPRESSION: No evidence of acute process in the abdomen and pelvis. Exercise Teacher: PSCB Transcribe Date/Time: Mar 12 2022 9:08A Dictated by : YUDY OLIVO MD This examination was interpreted and the report reviewed and electronically signed by: YUDY OLIVO MD on Mar 12 2022 9:18AM EST [id number] [facility] ED NOTEon 03-12-2022 ED NOTE HNO ID: [id number] Author: Patricia Arriola RN Service: Nursing Author Type: Registered Nurse Type: ED Notes Filed: 03/12/2022 12:44 PM Note Text: Patient informed: the name of medication, why we are giving it, possible side effects, what they may expect to feel, and was offered a chance to ask questions, prior to the administration of Toradol [facility] ED NOTE HNO ID: [id number] Author: Angela Masters RN Service: Emergency Medicine Author Type: Registered Nurse Type: ED Notes Filed: 03/12/2022 10:03 AM Note Text: Call to [facility] to check if they would have a bed available- they do not have a bed [facility] ED NOTE HNO ID: [id number] Author: Patricia Arriola RN Service: Nursing Author Type: Registered Nurse Type: ED Notes Filed: 03/12/2022 10:00 AM Note Text: Transfer line called, there is a bed open at [place], pt does not want to go there. She asked for us to contact [place] since that is close to her home, I will inform Angela Steen RN of pt request. [facility] ED NOTE HNO ID: [id number] Author: Angela Masters RN Service: Emergency Medicine Author Type: Registered Nurse Type: ED Notes Filed: 03/12/2022 9:46 AM Note Text: Call from [facility] transfer line, [facility] is full now- asking if we want pt on wait list. They will checked with [facility], they are also full. Informed [facility] transfer line we would like pt to stay on wait list for [facility]. Paged hospitalist for [facility] also. [facility] ED NOTE HNO ID: [id number] Author: Carlo Youngblood RN Service: Emergency Medicine Author Type: Registered Nurse Type: ED Notes Filed: 03/12/2022 7:26 AM Note Text: Change of shift report given to Patricia Delgado RN. Transfer of patient care given to Patricia Delgado RN. [facility] ED NOTE HNO ID: [id number] Author: Patricia Arriola RN Service: Nursing Author Type: Registered Nurse Type: ED Notes Filed: 03/12/2022 7:25 AM Note Text: Patient informed: the name of medication, why we are giving it, possible side effects, what they may expect to feel, and was offered a chance to ask questions, prior to the administration of Toradol [facility] ED NOTE HNO ID: [id number] Author: Patricia Arriola RN Service: Nursing Author Type: Registered Nurse Type: ED Notes Filed: 03/12/2022 7:24 AM Note Text: Report from SOCORRO Matos [facility] ED NOTE HNO ID: [id number] Author: Carlo Youngblood RN Service: Emergency Medicine Author Type: Registered Nurse Type: ED Notes Filed: 03/12/2022 6:56 AM Note Text: 66 y/o female presenting to the ED via [facility] with complaint of severe lower back pain and left side pain. Patient reports pain when there is movement. 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 Patient reported that she sneezed this morning and felt a pop. Patient reported that when she is still, there is no pain. Patient is alert and oriented x3 (person, place, and time of day). EMS placed IV access prior to arrival to the ED. [facility] ED PROV NOTEon 03-12-2022 ED PROV NOTE HNO ID: [id number] Author: Rafal Sommers MD Service: Emergency Medicine Author Type: Physician Type: ED Provider Notes Filed: 03/12/2022 11:06 AM Note Text: ED Provider Note Patient Name: Ana Jones : 1955 SERVICE DATE: 03/12/22 History Patient presents with: Low Back Pain 66-year-old female patient presents to the emergency department. 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 She went into work last night was having some discomfort but then overnight she sneezed and has had a lot more discomfort since then. States she cannot walk now. Denies any other injury. Denies any shortness of breath or pain with breathing. Denies any radiation of the pain. She is had no vomiting. Denies any dysuria urgency frequency or hematuria. She did take 2 Aleve yesterday for various aches and pains. Patient states that she lays here not trying to walk she is having no pain is when she moves that she gets pain. History reviewed. No pertinent past medical history. PAST SURGICAL HISTORY Procedure Laterality Date HYSTERECTOMY HX No family history on file. Social History Tobacco Use Smoking status: Never Smokeless tobacco: Not on file Substance and Sexual Activity Alcohol use: Yes Comment: very rarely. Drug use: Yes Types: Marijuana Sexual activity: Not on file ALLERGIES No Known Allergies Review of Systems Musculoskeletal: Positive for back pain. All other systems reviewed and are negative. Physical Exam Vitals [03/12/22 0647] BP Pulse Temp Temp src Resp SpO2 Weight Height 175/100 (!) 93 36.7 ?C (98 ?F) Temporal 16 100 % 68 kg (150 lb) 1.651 m (5' 5 ) Physical Exam Vitals and nursing note reviewed. Constitutional: Appearance: She is well-developed. HENT: Head: Normocephalic and atraumatic. Nose: Nose normal. Eyes: Extraocular Movements: Extraocular movements intact. Cardiovascular: Heart sounds: Normal heart sounds. Pulmonary: Effort: No respiratory distress. Breath sounds: Normal breath sounds. Abdominal: General: Bowel sounds are normal. Palpations: Abdomen is soft. Tenderness: There is no abdominal tenderness. Musculoskeletal: Cervical back: Neck supple. Comments: Patient has a bruise to her posterior lateral left lower side that starts around the mid to posterior axillary line. She is around the level of her lowest rib. I cannot reproduce any tenderness by palpation in that area or her back. There is no midline discomfort. She states it just hurts when she moves. Skin: General: Skin is warm and dry. Neurological: Mental Status: She is alert and oriented to person, place, and time. Diagnostic Testing ED Labs Ordered and Reviewed - No data to display Procedures ED Course / Clinical Impression Clinical Impressions as of 03/12/22 0959 Anemia, unspecified type MDM / Disposition / Plan Patient presented with left side pain and bruising. Her hemoglobin came back at 6.5. She does have a remote history of anemia 10 years ago does not know any values and never had a blood transfusion. She states her anemia in the past was secondary to treatment for hep C when she also had other indices that were low. She currently does not have a doctor. She states she gets tired but denies any dyspnea with exertion. She did try getting a doctor but was unable. I did CT scan her abdomen and pelvis secondary to her bruising and anemia this was negative for acute trauma. Chest x-ray was negative. She was given a dose of Toradol which helped her discomfort. She denies any rectal or vaginal bleeding. Has a history of a hysterectomy. She has not had a colonoscopy and probably over 10 years. As she does not have a doctor has hemoglobin at 6.5 I felt she benefit from admission and transfusion and getting on treatment for her anemia. I contacted sound and patient will be observed here in the hospital. SIGNATURE: MD Rafal Silver MD 03/12/22 1106 Normal [facility] Ferritin SerPl-mCncon 2021 Ferritin [Mass/Vol] 7.2 ng/mL Low 14.7-205.1 [facility] Comment on above: Order Comment: Speci men Type: URINE SPECIMEN Ordering Facility: [facility] Address: [place] [address] Performed By: #### L [id number] #### [facility] CLIA [id number] [address] [place] [address] [place] Folate SerPl-mCncon 11-10-20 22 Folate [Mass/Vol] 7.6 ng/mL Normal >4.7 [facility] Comment on above: Order Comment: Speci men Type: BLOOD SPECIMEN Ordering Facility: [facility] Address: [place] [address] Performed By: #### 7 18-7 #### [facility] CLIA [id number] [address] [place] [address] [place] HISTORY PHYSICALon HISTORY PHYSICAL HNO ID: [id number] Author: Isacc Eagle PA-C Service: Hospital Medicine Author Type: Physician Fourth Mate Type: HANDP Filed: 03/12/2022 3:45 PM Note Text: Attestation signed by Melvin Cardenas MD at 05/05/2022 3:18 PM Attending Note I have personally reviewed the SAM note and have discussed the management of this patient with the SAM. Other additions or changes: As edited Signature: Melvin Cardenas MD, [facility], [facility] Date: March 12, 2022 Time: 7:18 PM DEPARTMENT OF HOSPITAL MEDICINE HISTORY AND PHYSICAL EXAM SERVICE DATE: 03/12/2022 Code Status: Not on file SERVICE TIME: 3:31 PM Primary Care Physician: No Pcp NIGHT AND WEEKEND COVERAGE: [facility] Medicine Coverage Subjective CHIEF COMPLAINT: Back Pain HPI: This is a 66 year old female who presents with the above complaint. Patient has a significant past medical history of hepatitis C (treated), rare alcohol use, and occasional THC use. Patient presented to the Emergency Department for a complaint of back pain at work. 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 Pain in the left back became severe to the point she was unable to walk. She also reports that she had a sneezing episode that worsened the back pain. It does not radiate, no associated urologic symptoms or lower ext paresthesias. Patient was evaluated and CT Abd/Pelvis was performed due to the left flank pain to r/o intraabdominal process. CT was unremarkable. Patient had basic lab work which showed evidence of anemia with Hgb 6.5. No reported hematochezia or melena. Last colonoscopy was approximately 10 years ago, but reports not polyps at that time. Denies any vaginal bleeding (hx of hysterectomy). Reports use of daily NSAIDs over the last week, but only occassionally prior. No complaints of GERD symptoms. Patient was subsequently admitted to the [facility] Medicine service for further evaluation and management. Initially patient was to be transferred, but she refused transfer to [place] and no other open beds. PAST MEDICAL HISTORY Diagnosis Date Hepatitis C PAST SURGICAL HISTORY Procedure Laterality Date HYSTERECTOMY HX FAMILY HISTORY Family history unknown: Yes Social History Tobacco Use Smoking status: Never Substance Use Topics Alcohol use: Yes Comment: very rarely. Drug use: Yes Types: Marijuana PRIOR TO ADMISSION MEDICATIONS: No medications prior to admission. ALLERGIES No Known Allergies REVIEW OF SYSTEM: Patient denies chest pain, shortness of breath, dyspnea/dyspnea on exertion, cough, cold symptoms, abdominal pain, nausea, vomiting, diarrhea, dysuria, hematuria,melena, or hematochezia Pertinent positives and negatives as per the HPI above. All other symptoms were reviewed with the patient and are negative. Objective PHYSICAL EXAM: BP 142/77 Pulse 75 Temp (Src) 97.3 (Oral) Resp 16 Ht 5' 5 (1.65m) Wt 144 lb 14.4 oz (65.7kg) SpO2 100% BMI 24.11 kg/(m2). O2 Therapy: Room Air Physical Exam Performed: General: NAD, resting comfortably in bed, polite and cooperative HEENT: Normocephalic, atraumatic, Pupils are equal, round, and reactive to light, EOMI, Mucus membranes moist, tongue is pink and midline Neck: Supple, trachea midline Lungs: CTA bilaterally without wheezes, rales, rhonchi. Unlabored respiratory effort Heart: Regular rate and rhythm without ectopy Abdomen: Soft, nontender, bowel sounds present in all mcdonald, no HSM, no rebound or guarding. Musculoskeletal: Thin and Frail appearing. Appears to have full ROM of the UE/LE without deficit. Vascular: Cap refill brisk less than 2 sec. No cyanosis or edema. Neuro: CN II-XII intact. Answers all questions appropriately. Skin: No rashes, lesions, or cellulitis Lines, Drains, and Airways Line Duration Peripheral 03/12/22 0649 Admission to Hospital Short Left Antecubital 20 Gauge <1 day Reviewed lines and needs to be continued: REASONS: Difficulty in obtaining/maintaining access and Electrolyte replacement DATA: Diagnostic tests reviewed for today's visit: Most recent labs Most recent imaging Assessment/Plan Problem List Anemia POA: Yes Acute left-sided back pain POA: Status not on file History of hepatitis C POA: Status not on file Anemia - Likely iron deficiency anemia - Hgb 6.5 today - No recent labs to review - No complaints of bleeding (no melena, hematochezia) - NSAID use increased over the last week - Vital Stable - Transfuse 1 unit PRBC - Instructed patient that she will require EGD/Colonoscopy as an outpatient to determine source of anmeia - Check B12, Folate, TIBC, and Iron - Start Ferrous Sulfate + Vitamin C twice daily - Occult stool - Close follow-up with PCP (needs connected with Dr. Blount office) and GI (more content not included)... Normal [facility] Iron and Iron binding capaci ty panelon 03-12-2022 Iron [Mass/Vol] 12 ug/dL Low 41-186 [facility] Comment on above: Order Comment: Rudy waddell Type: BLOOD SPECIMEN Ordering Facility: [facility] Address: [address] [address] Performed By: #### 7 18-7 #### [facility] CLIA [id number] [address] [place] [address] [place] Iron binding capacity [Mass/Vol] 387 ug/dL High 232-386 [facility] Comment on above: Order Comment: Rudy waddell Type: BLOOD SPECIMEN Ordering Facility: [facility] Address: [address] [address] Performed By: #### 7 18-7 #### [facility] CLIA [id number] [address] [place] [address] [facility] Iron saturation [Mass fraction] 3.1 % Low 15.0-57.0 [facility] Comment on above: Order Comment: Speci men Type: BLOOD SPECIMEN Ordering Facility: [facility] Address: [address] [place], [place] [id number] Performed By: #### 7 18-7 #### [facility] CLIA [id number] [address] [place] [address] [facility] NURSING PROGon 03-12-2022 NURSING PROG HNO ID: [id number] Author: Ivelisse Galvan RN Service: Nursing Author Type: Registered Nurse Type: Nursing Progress Note Filed: 03/12/2022 2:13 PM Note Text: 1207 report received from SOCORRO Gomez in ED 1310 pt arrived to room 114 bed A. Admission assessment completed, see Epic. Skin assessment completed x 2 RN's. Falls video ch. 95 watched for pt safety. Call light system education provided. 1340 pt son and D-I-L arrived @ bedside. Questions answered as appropriate, pt verified it's okay for son (primary contact) to receive information. Ivelisse Galvan RN [facility] SARS-CoV-2 RNA Resp Ql ELIESER+p robeon 03-12-2022 SARS-CoV-2 (COVID-19) RNA ELIESER+probe Ql (Resp) COVID 19 RESULT: SARS-CoV-2 (Agent of COVID-19) Not Detected by RT-PCR or equivalent method. This test has been authorized by FDA under an Emergency Use Authorization (EUA). Normal [facility] Comment on above: Performed By: #### 9 [id number] ####[facility] [id number] [place] [address] [facility] TYPE + SCREENon 03-12-[address] [facility] Comment on above: Order Comment: Speci men Type: BLOOD SPECIMEN Ordering Facility: [facility] Address: [address] [id number] Performed By: #### T SCR #### [facility] CLIA [id number] [address] HISTORICAL AB SCR STATUS Negative Normal [facility] Comment on above: Order Comment: Speci men Type: BLOOD SPECIMEN Ordering Facility: [facility] Address: [address] [address] Performed By: #### T SCR #### [facility] CLIA [id number] [address] Rh Nom (Bld) Positive Normal [facility] Comment on above: Order Comment: Speci men Type: BLOOD SPECIMEN Ordering Facility: [facility] Address: [address] [place] [address] Performed By: #### T SCR #### [facility] CLIA [id number] [address] TYPE AND SCREEN EXPIRATION 03/15/2022 23:59 Normal [facility] Comment on above: Order Comment: Speci men Type: BLOOD SPECIMEN Ordering Facility: [facility] Address: [address] [address] Performed By: #### T SCR #### [facility] CLIA [id number] [address] URINALYSIS, REFLEX MICROSCOP ICon 03-12-2022 Bilirubin Ql (U) Negative Normal Negative [facility] Comment on above: Order Comment: Speci men Type: URINE SPECIMEN Ordering Facility: [facility] Address: [address] [address] Performed By: #### L [id number] #### [facility] CLIA [id number] [address] [place] [address] Clarity (Unsp spec) Clear Normal Clear [facility] Comment on above: Order Comment: Speci men Type: URINE SPECIMEN Ordering Facility: [facility] Address: [address] [address] Performed By: #### L [id number] #### [facility] CLIA [id number] [address] [place] [address] [facility] Color (U) Yellow Normal Yellow [facility] Comment on above: Order Comment: Speci men Type: URINE SPECIMEN Ordering Facility: [facility] Address: [address] [place] [address] Performed By: #### L [id number] #### [facility] CLIA [id number] [address] [id number] [facility] Epithelial cells LM.HPF (Urine sed) [#/Area] Few Normal [facility] Comment on above: Order Comment: Speci men Type: URINE SPECIMEN Ordering Facility: [facility] Address: [address] [place] [address] Performed By: #### L [id number] #### [facility] CLIA [id number] [address] [place] [address] Glucose Test strip (U) [Mass/Vol] Negative Normal Negative [facility] Comment on above: Order Comment: Speci men Type: URINE SPECIMEN Ordering Facility: [facility] Address: [address] [place] [address] Performed By: #### L [id number] #### [facility] CLIA [id number] [address] [place] [address] [place] Hemoglobin Ql (U) Trace Abnormal Negative [facility] Comment on above: Order Comment: Speci men Type: URINE SPECIMEN Ordering Facility: [facility] Address: [address] [place] [address] Performed By: #### L [id number] #### [facility] CLIA [id number] [address] [place] [address] [place] Ketones Ql (U) Negative Normal Negative [facility] Comment on above: Order Comment: Speci men Type: URINE SPECIMEN Ordering Facility: [facility] Address: [address] [place] [address] Performed By: #### L [id number] #### [facility] CLIA [id number] [address] [place] [address] [facility] Leukocyte esterase Test strip Ql (U) Negative Normal Negative [facility] Comment on above: Order Comment: Speci men Type: URINE SPECIMEN Ordering Facility: [facility] Address: [address] [place] [address] Performed By: #### L [id number] #### [facility] CLIA [id number] [address] [place], [place] [address] [place] [address] [place] Nitrite Ql (U) Negative Normal Negative [facility] Comment on above: Order Comment: Speci men Type: URINE SPECIMEN Ordering Facility: [facility] Address: [address] [place] [address] Performed By: #### L [id number] #### [facility] CLIA [id number] [address] [place] pH (U) 7.0 [pH] Normal 5.0-8.0 [facility] Comment on above: Order Comment: Speci men Type: URINE SPECIMEN Ordering Facility: [facility] Address: [address] [place] [address] Performed By: #### L [id number] #### [facility] CLIA [id number] [address] Protein (U) [Mass/Vol] Negative Normal Negative [facility] Comment on above: Order Comment: Speci men Type: URINE SPECIMEN Ordering Facility: [facility] Address: [address] [place] [address] Performed By: #### L [id number] #### [facility] CLIA [id number] [address] RBC LM.HPF (Urine sed) [#/Area] 0-3 /HPF Normal 0-3 /HPF [facility] Comment on above: Order Comment: Speci men Type: URINE SPECIMEN Ordering Facility: [facility] Address: [address] [place] [address] Performed By: #### L [id number] #### [facility] CLIA [id number] [address] [place] [address] STATES [facility] Specific gravity (U) [Rel density] 1.020 Normal 1.005-1.030 [facility] Comment on above: Order Comment: Speci men Type: URINE SPECIMEN Ordering Facility: [facility] Address: [address] [place] [address] Performed By: #### L [id number] #### [facility] CLIA [id number] [address] [place] [address] Urobilinogen Ql (U) 0.2 EU/dL Normal 0.2-1.0 EU/dL [facility] Comment on above: Order Comment: Speci men Type: URINE SPECIMEN Ordering Facility: [facility] Address: [address] [place] [address] Performed By: #### L [id number] #### [facility] CLIA [id number] [address] [place] [address] WBC LM.HPF (Urine sed) [#/Area] 0-5 /HPF Normal 0-5 /HPF [facility] Comment on above: Order Comment: Speci men Type: URINE SPECIMEN Ordering Facility: [facility] Address: [address] [place] [address] Performed By: #### L [id number] #### [facility] CLIA [id number] [address] [place] [address] [place] Vit B12 SerPl-ncon 022 Cobalamin (Vitamin B12) [Mass/Vol] 627 pg/mL Normal 232-1245 [facility] Comment on above: Order Comment: Speci men Type: BLOOD SPECIMEN Ordering Facility: [facility] Address: [address] [place] [address] Performed By: #### 7 18-7 #### [facility] CLIA [id number] [address] [place] [address] [place] XR RIB/CHST 3V AP RIB/OBL/CH ST Kyrie 03-12-2022 XR RIB/CHST 3V AP RIB/OBL/CHST L * * *Final Report* * * DATE OF EXAM: Mar 12 2022 8:56AM LDX 5243 - XR RIB/CHST 3V AP RIB/OBL/CHST L / PROCEDURE REASON: Rib fracture suspected, traumatic * * * * Physician Interpretation * * * * EXAM TITLE: CHEST X-RAY AND LEFT RIB X-RAYS DATE: March 12, 2022 CLINICAL INDICATION/HISTORY: Lower back pain COMPARISON: None. TECHNIQUE: AP view the chest. AP and oblique views of the left ribs. FINDINGS: No pneumothorax, pleural effusion or consolidation. Cardiomediastinal silhouette is unremarkable. No left rib fracture. IMPRESSION: No evidence of acute intrathoracic process. No evidence of a left rib fracture. Exercise Teacher: SHAWNA Transcribe Date/Time: Mar 12 2022 9:19A Dictated by : YUDY OLIVO MD This examination was interpreted and the report reviewed and electronically signed by: YUDY OLIVO MD on Mar 12 2022 9:21AM EST [id number] Normal [facility] Vital Signs Date Time Vital Sign Value Performing Clinician Meg arechiga 04-20-2022 10:43-0500 Diastolic blood pressure 84 mm[Hg] Priya Sheets DO Work Phone: [facility] 04-20-2022 10:43-0500 Systolic blood pressure 136 mm[Hg] Priya Sheets DO Work Phone: [facility] 04-20-2022 10:30-0500 Body height 160.7 cm Priya Sheets DO Work Phone: [facility] 04-20-2022 10:30-0500 Body temperature 97.59 [degF] Priya Sheets DO Work Phone: [facility] 04-20-2022 10:30-0500 Body weight 67.59 kg Priya Sheets DO Work Phone: [facility] 04-20-2022 10:30-0500 Heart rate 61 /min Priya Sheets DO Work Phone: [facility] 04-20-2022 10:30-0500 Respiratory rate 16 /min Priya Sheets DO Work Phone: [facility] 04-20-2022 10:30-0500 SaO2% (BldA) [Mass fraction] 100 % Priya Sheets DO Work Phone: [facility] 03-23-2022 15:00-0500 Diastolic blood pressure 90 mm[Hg] Priya Sheets DO Work Phone: [facility] 03-23-2022 15:00-0500 Systolic blood pressure 130 mm[Hg] Priya Sheets DO Work Phone: [facility] 03-23-2022 14:34-0500 Body height 160.7 cm Priya Sheets DO Work Phone: [facility] 03-23-2022 14:34-0500 Body temperature 98.4 [degF] Priya Sheets DO Work Phone: [facility] 03-23-2022 14:34-0500 Body weight 66.13 kg Priya Sheets DO Work Phone: [facility] 03-23-2022 14:34-0500 Heart rate 79 /min Priya Sheets DO Work Phone: [facility] 03-23-2022 14:34-0500 Respiratory rate 16 /min Priya Sheets DO Work Phone: [facility] 03-23-2022 14:34-0500 SaO2% (BldA) [Mass fraction] 99 % Priya Sheets DO Work Phone: [facility] Encounters Encounter Date Encounter Type Care Provider Facility Start: 04-20-2022 End: 04-21-2022 ambulatory PRIYA C SHEETS Facility:[facility] Start: 04-20-2022 Encounter for genera l adult medical examination without abnormal findings PRIYA C SHEETS [facility] Start: 04-20-2022 End: 04-20-2022 Patient encounter procedure Priya C Sheets DO Work Phone: [facility] Comment on above: Well adult exam (Aide lizy Dx); Other iron deficiency anemias; Elevated blood pressure reading without diagnosis of hypertension; GERD without esophagitis; Status post hysterectomy Start: 04-20-2022 End: 04-20-2022 Patient encounter status Priya Blount DO Work Phone: [facility] Start: 03-23-2022 End: 03-24-2022 ambulatory PRIYA BLOUNT Facility:[facility] Start: 03-23-2022 End: 03-23-2022 Patient encounter procedure Priya Foley Sheets DO Work Phone: [facility] Comment on above: Other iron deficienc y anemia (Primary Dx); Elevated blood pressure reading without diagnosis of hypertension Start: 03-12-2022 Telephone encounter Amaris Crawford MD Work Phone: [place] [facility] Comment on above[facility] Start: 03-12-2022 End: 03-13-2022 ambulatory [facility] Facility:[facility] Procedures Date Procedure Procedure Detail Performing Clinician Start: 03-12-2022 Antibody screen CATALINA BLOUNT Comment on above: Order Comment: Speci men Type: BLOOD SPECIMEN Ordering Facility: [facility] Address: [address] [place], [place] [address] Performed By: #### T SCR #### [facility] [place] [id number] [address] [place] [address] [place] H/O: hysterectomy Status post hysterectomy Priya Foley Sheets DO Work Phone: Plan of Treatment Date Care Activity Detail Author Start: 03-13-2025 DIABETES SCREEN DIABETES SCREEN [facility] Start: 03-12-2025 DIABETES SCREEN DIABETES SCREEN [facility] Start: 04-20-2023 LIPID SCREEN LIPID SCREEN [facility] Comment on above: Postponed from 04/22 (Declined at this time) Start: 04-20-2023 Mammography MAMMOGRAM [facility] Comment on above: Postponed from 04/22 (Declined at this time) Start: 03-23-2023 COVID-19 VACCINE (5 - Booster for Moderna series) COVID-19 VACCINE (5 - Booster for Moderna series) [facility] Comment on above: Postponed from 12/13 (Declined at this time) Start: 03-23-2023 PNEUMOCOCCAL: 65+ (1 - PCV) PNEUMOCOCCAL: 65+ (1 - PCV) [facility] Comment on above: Postponed from 04/22 (Declined at this time) Start: 03-23-2023 SHINGRIX VACCINE (1 of 2) SHINGRIX V ACCINE (1 of 2) [facility] Comment on above: Postponed from 04/22 (Declined at this time) Start: 03-23-2023 Urine microalbumin profile DTAP,TDAP,TD (1 - Tdap) [facility] Comment on above: Postponed from 04/22 (Declined at this time) Start: 03-13-2023 COLORECTAL CANCER SCREENING COLORECTAL CANCER SCREENING [facility] Start: 03-13-2023 FECAL OCCULT BLOOD FECAL OCCULT BLOO D [facility] Start: 10-30-2022 Influenza vaccination INFLUENZA (#1) [facility] Comment on above: Postponed from 01/01 (Declined at this time) Start: 01-01-2022 Influenza vaccination INFLUENZA (#1) [facility] Start: 05-03-2021 ADVANCE DIRECTIVE DISCUSSION ADVANCE DIRECTIVE DISCUSSION [facility] Start: 05-03-2021 DEPRESSION ASSESSMENT DEPRESSION ASS ESSMENT [facility] Start: 2021 BONE DENSITY BONE DENSITY [facility] Start: 2021 PNEUMOCOCCAL: 65+ (1 - PCV) PNEUMOCOCCAL: 65+ (1 - PCV) [facility] Start: 2006 SHINGRIX VACCINE (1 of 2) SHINGRIX V ACCINE (1 of 2) [facility] Start: 2001 COLOGUARD (FIT-DNA) COLOGUARD (FIT-D NA) [facility] Start: 2001 Colonoscopy COLONOSCOPY [facility] Start: 2001 COLORECTAL CANCER SCREENING COLORECTAL CANCER SCREENING [facility] Start: [address] COLONOGRAPHY [facility] Start: 2001 FECAL OCCULT BLOOD FECAL OCCULT BLOO D [facility] Start: 2001 LIPID SCREEN LIPID SCREEN [facility] Start: 2001 SIGMOIDOSCOPY SIGMOIDOSCOPY [facility] Start: 1996 Mammography MAMMOGRAM [facility] Start: 1975 Urine microalbumin profile DTAP,TDAP,TD (1 - Tdap) [facility] Start: 1974 HEPATITIS C SCREENING HEPATITIS C SC REENING [facility] Start: 1974 HIV SCREENING HIV SCREENING [facility] Start: 1956 COVID-19 VACCINE (#1) COVID-19 VACCI NE (#1) [facility] Immunizations Immunization Date Immunization Notes Care Provider Fa cility 10-18-2021 COVID-19 original vaccine, booster dose, monovalent (MODERNA) Priya Sheets DO Work Phone: [facility] 06-07-2021 COVID-19 original vaccine, booster dose, monovalent (MODERNA) Priya Sheets DO Work Phone: [facility] 09-20-2020 COVID-19 original vaccine, full dose, monovalent (MODERNA) Priya Sheets DO Work Phone: [facility] 08-20-2020 COVID-19 original vaccine, full dose, monovalent (MODERNA) Priya Sheets DO Work Phone: [facility] Payers Date Payer Category Payer Unknown [facility] [id number] 2022-Present [phone] [place] [id number] 2021 Medicare [id number] 2016 Private Health Insurance [facility] UMR CHOICE PLUS [id number] 2016-Present [phone] [address] [address] [place] [address] HMO [id number] 2016 Unknown [id number] Social History Date Type Detail Facility Start: 03-12-2022 [facility] Start: 03-12-2022 End: 04-20-2022 Alcohol intake Current drinker of alcohol (finding) [facility] Start: 03-12-2022 Alcohol Comment very rarely. [facility] Start: 1955 Sex Assigned At Not on file [facility] Start: 03-02-2022 End: 03-23-2022 Exposure to SARS-CoV-2 (event) Not sure [facility] Start: 03-23-2022 Tobacco smoking stat us NHIS Ex-smoker [facility] History of tobacco use Current smoker [facility] History of tobacco use Cigarette Smoker [facility] Start: 03-23-2022 Tobacco use and exposure Smoke less tobacco non-user [facility] Progress note 04-20-2022 Note Date & Type Note Facility 04-20-2022 Note HNO ID: [id number] Author: Priya Blount, DO Service: ? Author Type: Physician Type: Progress Notes Filed: 04/20/2022 10:55 AM Note Text: SUBJECTIVE: 66 year old female for annual routine pap and checkup. I have fully reviewed the past medical, surgical, social and family history and updated the Histories section of [facility]. She has a history of anemia Her fecal occult blood test was negative She is taking iron once a day, rather than twice. Her Hb has been improving over the past month She had a total hysterectomy, no longer needs pap tests. She eats a healthy diet, and is going to start riding her indoor [employer] bicycle regularly. She does not use tobacco or nicotine products. No LMP recorded. ALLERGIES No Known Allergies Current Outpatient Medications Medication Sig Dispense Refill acetaminophen (TYLENOL) 500 mg tablet Take 2 tablets by mouth every 8 hours as needed for pain or fever (specify) (temp 101F). ascorbic acid, vitamin C, (VITAMIN C) 500 mg tablet Take 1 tablet by mouth twice daily with meals. 60 tablet 0 ferrous sulfate 325 mg (65 mg iron) tablet Take 1 tablet by mouth twice daily with meals. [address] (PROTONIX) 40 mg tablet Take 1 tablet by mouth DAILY (6 AM). 30 tablet 0 No current facility-administered medications for this visit. ACTIVE PROBLEM LIST Absolute Anemia History of Hepatitis C Acute Left-Sided Back Pain Social History Tobacco Use Smoking status: Former Types: Cigarettes Smokeless tobacco: Never Substance Use Topics Alcohol use: Yes Comment: very rarely. Drug use: Yes Types: Marijuana Family History Problem Relation Age of Onset Hypertension Mother Hypertension Father Heart Attack Father had to have a triple bypass other (throat cancer) Father Reviewed past medical history, family history and surgeries. All medications and supplements were reviewed with the patient. REVIEW OF SYSTEMS GENERAL: No weight loss, malaise or fevers HEENT: Negative for frequent or significant headaches, No changes in hearing or vision, no nose bleeds or other nasal problems NECK: Negative for lumps, goiter, pain and significant neck swelling RESPIRATORY: Negative for cough, hemoptysis, wheezing, COPD, dyspnea or shortness of breath CARDIOVASCULAR: Negative for chest pain, leg swelling, hypertension, CHF or palpitations GI: No nausea, vomiting, or diarrhea : No history of dysuria, frequency or incontinence MUSCULOSKELETAL: Negative for joint pain or swelling, back pain or muscle pain SKIN: Negative for lesions, rash, and itching PSYCH: Negative for sleep disturbance, mood disorder and recent psychosocial stressors HEMATOLOGY/LYMPHOLOGY: Negative for prolonged bleeding, bruising easily or swollen nodes ENDOCRINE: Negative for cold or heat intolerance, polyuria, polydipsia and goiter NEURO: No history of headaches, syncope, paralysis, seizures or tremors PHYSICAL EXAMINATION: BP 146/90 Pulse 61 Temp 36.4 ?C (97.6 ?F) Resp 16 Ht 160.7 cm (5' 3.25 ) Wt 67.6 kg (149 lb) SpO2 100% BMI 26.19 kg/m? General appearance: Well appearing, alert, in no acute distress, well-hydrated, well nourished. Skin: Skin color, texture, turgor normal, no suspicious rashes or lesions Head: Normocephalic, no masses, lesions, tenderness or abnormalities Eyes: Anicteric sclera. Pupils are equally round and reactive to light. Extraocular movements are intact. Ears: External ears normal, canals clear Nose/Sinuses: Nares normal, septum midline, mucosa normal, no drainage or sinus tenderness Oropharynx: Lips, mucosa, and tongue normal, teeth and gums normal, oropharynx normal Neck: Supple, no adenopathy; thyroid symmetric, normal size, no bruits Back: Normal exam Lungs: Lungs clear to auscultation. No wheezing, rhonchi, rales. Heart: RRR without murmur, gallop, or rubs. No ectopy Abdomen: Normal abdominal exam, Abdomen soft, non-tender. Bowel sounds normal. No masses, organomegaly Extremities: No deformities, edema, skin discoloration, clubbing or cyanosis. Good capillary refill. Musculoskeletal: No joint swelling, deformity, or tenderness Peripheral pulses: Normal Neuro: Gait normal. Reflexes normal and symmetric. Sensation grossly intact. ASSESSMENT/PLAN: 1. Well adult exam - ICD9: V70.0, ICD10: Z00.00 (primary diagnosis) - Counseled on healthy diet and regular exercise - Calcium intake with supplements or by diet of 1000 mg/day for under 50, 6826-1797 mg/day for 50+ 2. Other iron deficiency anemias - ICD9: 280.8, ICD10: D50.8 - ASCORBIC ACID (VITAMIN C) 500 MG TABLET - FERROUS SULFATE 325 MG (65 MG IRON) TABLET - HEMOGLOBIN (HGB) 3. Elevated blood pressure reading without diagnosis of hypertension - ICD9: 796.2, ICD10: R03.0 - Encouraged dietary sodium restriction/DASH diet - Recommended regular aerobic exercise. - Recommend home blood pressure monitoring, to bring res (more content not included)... [facility] History of Present illness Narrative 04-20-2022 Priya Blount, DO - 04/20/2022 10:33 AM EST Note Date & Type Note Facility 04-20-2022 History of Presen t illness Narrative SUBJECTIVE: 66 year old female for annual routine pap and checkup. I have fully reviewed the past medical, surgical, social and family history and updated the Histories section of [facility]. She has a history of anemia Her fecal occult blood test was negative She is taking iron once a day, rather than twice. Her Hb has been improving over the past month She had a total hysterectomy, no longer needs pap tests. She eats a healthy diet, and is going to start riding her indoor [employer] bicycle regularly. She does not use tobacco or nicotine products. No LMP recorded. ALLERGIES No Known Allergies Current Outpatient Medications Medication Sig Dispense Refill acetaminophen (TYLENOL) 500 mg tablet Take 2 tablets by mouth every 8 hours as needed for pain or fever (specify) (temp 101F). ascorbic acid, vitamin C, (VITAMIN C) 500 mg tablet Take 1 tablet by mouth twice daily with meals. 60 tablet 0 ferrous sulfate 325 mg (65 mg iron) tablet Take 1 tablet by mouth twice daily with meals. [address] (PROTONIX) 40 mg tablet Take 1 tablet by mouth DAILY (6 AM). 30 tablet 0 No current facility-administered medications for this visit. ACTIVE PROBLEM LIST Absolute Anemia History of Hepatitis C Acute Left-Sided Back Pain Social History Tobacco Use Smoking status: Former Types: Cigarettes Smokeless tobacco: Never Substance Use Topics Alcohol use: Yes Comment: very rarely. Drug use: Yes Types: Marijuana Family History Problem Relation Age of Onset Hypertension Mother Hypertension Father Heart Attack Father had to have a triple bypass other (throat cancer) Father Reviewed past medical history, family history and surgeries. All medications and supplements were reviewed with the patient. REVIEW OF SYSTEMS GENERAL: No weight loss, malaise or fevers HEENT: Negative for frequent or significant headaches, No changes in hearing or vision, no nose bleeds or other nasal problems NECK: Negative for lumps, goiter, pain and significant neck swelling RESPIRATORY: Negative for cough, hemoptysis, wheezing, COPD, dyspnea or shortness of breath CARDIOVASCULAR: Negative for chest pain, leg swelling, hypertension, CHF or palpitations GI: No nausea, vomiting, or diarrhea : No history of dysuria, frequency or incontinence MUSCULOSKELETAL: Negative for joint pain or swelling, back pain or muscle pain SKIN: Negative for lesions, rash, and itching PSYCH: Negative for sleep disturbance, mood disorder and recent psychosocial stressors HEMATOLOGY/LYMPHOLOGY: Negative for prolonged bleeding, bruising easily or swollen nodes ENDOCRINE: Negative for cold or heat intolerance, polyuria, polydipsia and goiter NEURO: No history of headaches, syncope, paralysis, seizures or tremors PHYSICAL EXAMINATION: BP 146/90 Pulse 61 Temp 36.4 C (97.6 F) Resp 16 Ht 160.7 cm (5' 3.25 ) Wt 67.6 kg (149 lb) SpO2 100% BMI 26.19 kg/m General appearance: Well appearing, alert, in no acute distress, well-hydrated, well nourished. Skin: Skin color, texture, turgor normal, no suspicious rashes or lesions Head: Normocephalic, no masses, lesions, tenderness or abnormalities Eyes: Anicteric sclera. Pupils are equally round and reactive to light. Extraocular movements are intact. Ears: External ears normal, canals clear Nose/Sinuses: Nares normal, septum midline, mucosa normal, no drainage or sinus tenderness Oropharynx: Lips, mucosa, and tongue normal, teeth and gums normal, oropharynx normal Neck: Supple, no adenopathy; thyroid symmetric, normal size, no bruits Back: Normal exam Lungs: Lungs clear to auscultation. No wheezing, rhonchi, rales. Heart: RRR without murmur, gallop, or rubs. No ectopy Abdomen: Normal abdominal exam, Abdomen soft, non-tender. Bowel sounds normal. No masses, organomegaly Extremities: No deformities, edema, skin discoloration, clubbing or cyanosis. Good capillary refill. Musculoskeletal: No joint swelling, deformity, or tenderness Peripheral pulses: Normal Neuro: Gait normal. Reflexes normal and symmetric. Sensation grossly intact. ASSESSMENT/PLAN: 1. Well adult exam - ICD9: V70.0, ICD10: Z00.00 (primary diagnosis) - Counseled on healthy diet and regular exercise - Calcium intake with supplements or by diet of 1000 mg/day for under 50, 6269-7724 mg/day for 50+ 2. Other iron deficiency anemias - ICD9: 280.8, ICD10: D50.8 - ASCORBIC ACID (VITAMIN C) 500 MG TABLET - FERROUS SULFATE 325 MG (65 MG IRON) TABLET - HEMOGLOBIN (HGB) 3. Elevated blood pressure reading without diagnosis of hypertension - ICD9: 796.2, ICD10: R03.0 - Encouraged dietary sodium restriction/DASH diet - Recommended regular aerobic exercise. - Recommend home blood pressure monitoring, to bring results in on next visit - Goal of BP <130/80 4. GERD without esophagitis - ICD9: 530.81, ICD10: K21.9 - Discussed lifestyle modifications including losing weight, limiting caffeine, no meals three hours before sleep, and head of bed elevation - PANTOPRAZOLE 40 MG TABLET,DELAYED RELEASE 5. Status post hysterectomy - ICD9: V88.01, ICD10: Z90.710 Pt no longer needs pap tests Priya Blount DO documented in this encounter [facility] Progress note 03-23-2022 Note Date & Type Note Facility 03-23-2022 Note HNO ID: [id number] Author: Priya C Sheets, DO Service: ? Author Type: Physician Type: Progress Notes Filed: 03/23/2022 3:07 PM Note Text: Subjective HPI Pt is here for acute visit after hospitalization. She does not plan on establishing with this office. She would like to establish with primary care at [facility] in [place]. She injured her back at work, was seen in the ED on 03/12/22 She was hospitalized at [facility] from 03/12 to 03/13 for an incidental finding of anemia. Fecal occult blood test was negative. Hb was 6.5 in the ED, was rechecked before discharge and was 8.1. She received 1 unit of PRBCs, and was started on PPIs, Vitamin c and oral iron, which she is taking as directed. It was recommended that the patient follow up with her GI for anemia. She has seen Dr. Farris in the past for hepatitis c, and plans to follow up with him. She has been feeling OK since leaving the hospital. Her blood pressure is mildly elevated today. She has white coat syndrome. She does not use any tobacco or nicotine products. ALLERGIES No Known Allergies Current Outpatient Medications Medication Sig Dispense Refill acetaminophen (TYLENOL) 500 mg tablet Take 2 tablets by mouth every 8 hours as needed for pain or fever (specify) (temp 101F). ascorbic acid, vitamin C, (VITAMIN C) 500 mg tablet Take 1 tablet by mouth twice daily with meals. 60 tablet 0 ferrous sulfate 325 mg (65 mg iron) tablet Take 1 tablet by mouth twice daily with meals. [address] (PROTONIX) 40 mg tablet Take 1 tablet by mouth DAILY (6 AM). 30 tablet 0 No current facility-administered medications for this visit. ACTIVE PROBLEM LIST Anemia History of Hepatitis C Acute Left-Sided Back Pain Social History Tobacco Use Smoking status: Former Types: Cigarettes Smokeless tobacco: Never Substance Use Topics Alcohol use: Yes Comment: very rarely. Drug use: Yes Types: Marijuana Family History Problem Relation Age of Onset Hypertension Mother Hypertension Father Heart Attack Father had to have a triple bypass other (throat cancer) Father Reviewed past medical history, family history and surgeries. All medications and supplements were reviewed with the patient. Review of Systems Constitutional: Negative for chills, diaphoresis, fever, malaise/fatigue and weight loss. HENT: Negative for ear pain and hearing loss. Eyes: Negative for blurred vision and double vision. Respiratory: Negative for cough and shortness of breath. Cardiovascular: Negative for chest pain, palpitations and leg swelling. Gastrointestinal: Negative for constipation, diarrhea and heartburn. Genitourinary: Negative for dysuria and frequency. Musculoskeletal: Negative for back pain, falls, joint pain and myalgias. Skin: Negative for itching and rash. Neurological: Negative for dizziness, weakness and headaches. Endo/Heme/Allergies: Does not bruise/bleed easily. Psychiatric/Behavioral: Negative for depression and substance abuse. The patient does not have insomnia. Objective BP 128/88 Pulse 79 Temp 36.9 ?C (98.4 ?F) Resp 16 Ht 160.7 cm (5' 3.25 ) Wt 66.1 kg (145 lb 12.8 oz) SpO2 99% BMI 25.62 kg/m? Physical Exam Constitutional: Appearance: Normal appearance. HENT: Head: Normocephalic and atraumatic. Nose: Nose normal. Mouth/Throat: Mouth: Mucous membranes are moist. Dentition: Normal dentition. Eyes: General: Lids are normal. Extraocular Movements: Extraocular movements intact. Conjunctiva/sclera: Conjunctivae normal. Pupils: Pupils are equal, round, and reactive to light. Neck: Thyroid: No thyroid mass or thyromegaly. Vascular: No carotid bruit. Trachea: Phonation normal. Cardiovascular: Rate and Rhythm: Normal rate and regular rhythm. Heart sounds: Normal heart sounds. No murmur heard. No friction rub. No gallop. Pulmonary: Effort: Pulmonary effort is normal. Breath sounds: Normal breath sounds. No wheezing or rales. Abdominal: General: Bowel sounds are normal. There is no distension. Palpations: Abdomen is soft. There is no mass. Tenderness: There is no abdominal tenderness. Musculoskeletal: General: No swelling or tenderness. Normal range of motion. Cervical back: Normal range of motion and neck supple. No edema. Lymphadenopathy: Cervical: No cervical adenopathy. Skin: General: Skin is warm and dry. Findings: No erythema or rash. Nails: There is no clubbing. Neurological: Mental Status: She is alert and oriented to person, place, and time. Cranial Nerves: No cranial nerve deficit. Motor: Motor function is intact. Coordination: Coordination normal. Gait: Gait is intact. Psychiatric: Attention and Perception: Attention normal. Mood and Affect: Mood and affect normal. Speech: Speech normal. Behavior: Behavior normal. Behavior is cooperative. Thought Content: Thought content normal. Cognition and (more content not included)... [facility] History of Present illness Narrative 03-23-2022 Priya Blount DO - 03/23/2022 2:42 PM EST Note Date & Type Note Facility 03-23-2022 History of Presen t illness Narrative Subjective HPI Pt is here for acute visit after hospitalization. She does not plan on establishing with this office. She would like to establish with primary care at [facility] in [place]. She injured her back at work, was seen in the ED on 03/12/22 She was hospitalized at [facility] from 03/12 to 03/13 for an incidental finding of anemia. Fecal occult blood test was negative. Hb was 6.5 in the ED, was rechecked before discharge and was 8.1. She received 1 unit of PRBCs, and was started on PPIs, Vitamin c and oral iron, which she is taking as directed. It was recommended that the patient follow up with her GI for anemia. She has seen Dr. Farris in the past for hepatitis c, and plans to follow up with him. She has been feeling OK since leaving the hospital. Her blood pressure is mildly elevated today. She has white coat syndrome. She does not use any tobacco or nicotine products. ALLERGIES No Known Allergies Current Outpatient Medications Medication Sig Dispense Refill acetaminophen (TYLENOL) 500 mg tablet Take 2 tablets by mouth every 8 hours as needed for pain or fever (specify) (temp 101F). ascorbic acid, vitamin C, (VITAMIN C) 500 mg tablet Take 1 tablet by mouth twice daily with meals. 60 tablet 0 ferrous sulfate 325 mg (65 mg iron) tablet Take 1 tablet by mouth twice daily with meals. [address] (PROTONIX) 40 mg tablet Take 1 tablet by mouth DAILY (6 AM). 30 tablet 0 No current facility-administered medications for this visit. ACTIVE PROBLEM LIST Anemia History of Hepatitis C Acute Left-Sided Back Pain Social History Tobacco Use Smoking status: Former Types: Cigarettes Smokeless tobacco: Never Substance Use Topics Alcohol use: Yes Comment: very rarely. Drug use: Yes Types: Marijuana Family History Problem Relation Age of Onset Hypertension Mother Hypertension Father Heart Attack Father had to have a triple bypass other (throat cancer) Father Reviewed past medical history, family history and surgeries. All medications and supplements were reviewed with the patient. Review of Systems Constitutional: Negative for chills, diaphoresis, fever, malaise/fatigue and weight loss. HENT: Negative for ear pain and hearing loss. Eyes: Negative for blurred vision and double vision. Respiratory: Negative for cough and shortness of breath. Cardiovascular: Negative for chest pain, palpitations and leg swelling. Gastrointestinal: Negative for constipation, diarrhea and heartburn. Genitourinary: Negative for dysuria and frequency. Musculoskeletal: Negative for back pain, falls, joint pain and myalgias. Skin: Negative for itching and rash. Neurological: Negative for dizziness, weakness and headaches. Endo/Heme/Allergies: Does not bruise/bleed easily. Psychiatric/Behavioral: Negative for depression and substance abuse. The patient does not have insomnia. Objective BP 128/88 Pulse 79 Temp 36.9 C (98.4 F) Resp 16 Ht 160.7 cm (5' 3.25 ) Wt 66.1 kg (145 lb 12.8 oz) SpO2 99% BMI 25.62 kg/m Physical Exam Constitutional: Appearance: Normal appearance. HENT: Head: Normocephalic and atraumatic. Nose: Nose normal. Mouth/Throat: Mouth: Mucous membranes are moist. Dentition: Normal dentition. Eyes: General: Lids are normal. Extraocular Movements: Extraocular movements intact. Conjunctiva/sclera: Conjunctivae normal. Pupils: Pupils are equal, round, and reactive to light. Neck: Thyroid: No thyroid mass or thyromegaly. Vascular: No carotid bruit. Trachea: Phonation normal. Cardiovascular: Rate and Rhythm: Normal rate and regular rhythm. Heart sounds: Normal heart sounds. No murmur heard. No friction rub. No gallop. Pulmonary: Effort: Pulmonary effort is normal. Breath sounds: Normal breath sounds. No wheezing or rales. Abdominal: General: Bowel sounds are normal. There is no distension. Palpations: Abdomen is soft. There is no mass. Tenderness: There is no abdominal tenderness. Musculoskeletal: General: No swelling or tenderness. Normal range of motion. Cervical back: Normal range of motion and neck supple. No edema. Lymphadenopathy: Cervical: No cervical adenopathy. Skin: General: Skin is warm and dry. Findings: No erythema or rash. Nails: There is no clubbing. Neurological: Mental Status: She is alert and oriented to person, place, and time. Cranial Nerves: No cranial nerve deficit. Motor: Motor function is intact. Coordination: Coordination normal. Gait: Gait is intact. Psychiatric: Attention and Perception: Attention normal. Mood and Affect: Mood and affect normal. Speech: Speech normal. Behavior: Behavior normal. Behavior is cooperative. Thought Content: Thought content normal. Cognition and Memory: Cognition and memory normal. Judgment: Judgment normal. ASSESSMENT/PLAN: 1. Other iron deficiency anemia - ICD9: 280.8, ICD10: D50.8 Recheck hemoglobin - HEMOGLOBIN (HGB) Pt will f/u with Dr. Farris GI If anemia is not GI related recommend pt be referred to cardiac monitor. 2. Elevated blood pressure reading without diagnosis of hypertension - ICD9: 796.2, ICD10: R03.0 - Encouraged dietary sodium restriction/DASH diet - Recommended regular aerobic exercise. - Recommend home blood pressure monitoring, to bring results in on next visit - Goal of BP <130/80 Priya Blount DO documented in this encounter [facility] Plan of care note 03-13-2022 Note Date & Type Note Facility 03-13-2022 Note HNO ID: [id number] Author: Lizzette Su APRN.HUY Service: Hospital Medicine Author Type: Nurse Practitioner Type: Plan of Care Filed: 03/13/2022 12:20 PM Note Text: Department of Hospital Medicine [place] [phone] Re: Ana Jones March 13, 2022 To Whom It May Concern, Ana Jones was admitted to the hospital for medical reasons from 03/12/2022 to 03/13/2022 and hence unable to attend work. She may return to work with no restriction on 03/16/2022. Please do not hesitate to contact me with any questions. Sincerely, Lizzette Su APRN.[employer] [facility] Note 03-12-2022 Telephone Encounter - Amaris Crawford MD - 03/12/2022 10:03 AM EST Note Date & Type Note Facility 03-12-2022 Miscellaneous Notes Formattin g of this note might be different from the original. RQB note error documented in this encounter [facility] Evaluation note Note Date & Type Note Facility Evaluation note Diagnosis Other iron deficiency anemia- Primary Elevated blood pressure reading without diagnosis of hypertension documented in this encounter [facility] Evaluation note Note Date & Type Note Facility Evaluation note Diagnosis Well adult exam- Primary Routine general medical examination at a health care facility Other iron deficiency anemias Elevated blood pressure reading without diagnosis of hypertension GERD without esophagitis Esophageal reflux Status post hysterectomy Acquired absence of both cervix and uterus documented in this encounter [facility] Summary Purpose Family History No Family History Records FoundNo Family History Records Found Advance Directives No Advanced Directives Records FoundNo Advanced Directives Records Found Additional Source Comments Source Comments (unrecognize d section and content) In the event this informatio n is protected by the Federal Confidentiality of Alcohol and Drug Abuse Patient Records regulations: The Federal rules restrict any use of the information to criminally investigate or prosecute any alcohol or drug abuse patient.[facility] the event this information is protected by the Federal Confidentiality of Alcohol and Drug Abuse Patient Records regulations: The Federal rules restrict any use of the information to criminally investigate or prosecute any alcohol or drug abuse patient.[facility] the event this information is protected by the Federal Confidentiality of Alcohol and Drug Abuse Patient Records regulations: The Federal rules restrict any use of the information to criminally investigate or prosecute any alcohol or drug abuse patient.[facility] Reason for Visit (unrecogniz ed section and content) Reason Comments Reason Comments New Patient Not establishing car e 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 Was recently diagnosed with anemia and had a blood transfusion Reason Comments review blood work and medications Care Teams (unrecognized sec tion and content) Route Driver Salesperson Relationship Specialty Start Date End Date Pcp, Loren PCP - General 11/15/21 06/02/22 Route Driver Salesperson Relationship Specialty Start Date End Date Priya Blount DO [address], [place] [phone] PCP - General Family Medicine 03/23/22 Route Driver Salesperson Relationship Specialty Start Date End Date Priya Blount DO [address] [place] [address] PCP - General Family Medicine 03/23/22 INFORMATION SOURCE (unrecogn ized section and content) DATE CREATED AUTHOR 03/13/2022 [facility] DATE CREATED AUTHOR AUTHOR'S JAMIN ATION 05/05/2022 [facility] FOR RECORDS PERTAINING TO PATIENTS WHO ARE OR HAVE BEEN ENROLLED IN A CHEMICAL DEPENDENCY/SUBSTANCEABUSE PROGRAM, SOME INFORMATION MAY BE OMITTED. This clinical summary was aggregated from multiple sources. Caution should be exercised in using it in the provision of clinical care. This summary normalizes information from multiple sources, and as a consequence, information in this document may materially change the coding, format and clinical context of patient data. In addition, data may be omitted in some cases. CLINICAL DECISIONS SHOULD BE BASED ON THE PRIMARY CLINICAL RECORDS. [facility]. provides no warranty or guarantee of the accuracy or completeness of information in this document.
[2024-03-21 22:00] VITALS: BP 127/90; PULSE 100; RESP 15
[2024-03-21 22:01] LABS: Anion Gap 9 (5-15); BUN 24 mg/dL (7-18); Calcium,Total 9.4 mg/dL (8.5-10.1); Chloride 106 mmol/L (98-107); Creatinine, Serum 0.86 mg/dL (0.55-1.02); EST Glomerular Filtration Rate 70 mL/min (>60); Est Glom Filt Rate - Afr Amer 85 mL/min (>60); Estimated Creatinine Clearance 62.05 ml/min; Glucose 139 mg/dL (74-106); Potassium 3.8 mmol/L (3.5-5.1); Sodium Level 138 mmol/L (136-145); Troponin-I HS (w/2H Reflex) 98 pg/mL (3.0-54.0)
[2024-03-21 23:00] VITALS: BP 131/95; PULSE 82; RESP 21
[2024-03-21 23:24] LABS: Reflex Troponin-HS? (from REC) Y
[2024-03-21 23:56] VITALS: BP 146/94; PULSE 78; RESP 16; TEMP 36.6; O2SAT 98
[2024-03-22] VITALS (22 sets, daily range): BP systolic 129–177; BP diastolic 75–107; PULSE 60–80; RESP 14–18; TEMP 35.9–36.8; O2SAT 93–100; BMI 24.8
--- NOTE | 2024-03-22 00:19 | PCM.HP.STD ---
HPI - General General Date of Admission: 03/21/24 Date of Service: 03/22/24 Chief Complaint: Chest Pain. HPI Narrative KATE ALLISON, is a 68 F with a past medical history of tobacco abuse, chronic hepatitis C, MARIPOSA and OA who presents to [facility] ER complaining of chest pain. Ms. Allison reports her symptoms began approximately 6:30 PM on March 21, 2024 [address] she drove to work she parked her car and then had to take an extended walk into work when she suddenly began to feel at a sensation of chest tightness and palpitations. She describes the chest pain as substernal, pressure-like, heaviness, nonradiating and with chest pain seeming to be made better or worse by anything. She admits to palpitations but she denies associated diaphoresis, nausea, vomiting, GERD or a known history of cardiac disease or previous cardiac catheterization but she was very concerned that she was having a possible heart attack so she decided to come in for further evaluation and treatment. She denies recent chest pain prior to this episode, dyspnea on exertion or history of VTE. She additionally denies any recent significant travel, surgery, trauma, immobilization or calf pain / lower extremity swelling. In the ER she was noted to have an elevated initial troponin of 98 pg/mL followed by a second upwardly trending troponin of 396 pg/mL followed by a third troponin escalating to 941 pg/mL with a nonspecific EKG consistent with suspected non-ST elevation [place] and she was then admitted to the PCU for ongoing care for stay that is expected to extend beyond 2 midnights. [facility] Medical History (Updated 03/22/24 @ 02:[address] Collin Young DO) Anemia Home Medications ?Medication ?Instructions ?Recorded ?Last Taken ?Type ferrous sulfate 325 mg (65 mg 325 mg PO BID 03/21/24 Unknown History iron) tablet Allergy/AdvReac Type Severity Reaction Status Date / Time No Known Allergies Allergy Verified 03/21/24 20:56 Social History Smoking Status: Former smoker ROS ROS Narrative Review of Systems: Constitutional: Patient denies fever or chills. Eyes: Patient denies changes in vision or discharge from eyes. ENT: Patient denies runny nose, sore throat or ear pain. Resp: Patient admits to dyspnea on exertion but she denies cough. CV: Patient admits to chest pain and palpitations but she denies heart racing. GI: Patient denies abdominal pain, nausea, vomiting or constipation. patient denies dysuria or hematuria. MSK. Patient denies arthralgias or myalgias. Skin: Patient denies rash, abscess or jaundice. Psych: Patient denies symptoms of uncontrolled depression or anxiety. Neuro: Patient denies headache, paresthesias or focal neurologic deficits. Allergy: Patient denies lip swelling, tongue swelling or urticaria. Hematology: Patient denies easy bleeding or easy bruisability. Endocrinology: Patient denies polyuria, polydipsia or polyphagia. 14 point review of systems otherwise negative save for positives noted above in HPI. Vital Signs Vital Signs Vital Signs: 03/21/24 20:56 03/21/24 21:24 03/21/24 21:25 Temperature 97.7 F L Temperature Source Oral Pulse Rate 107 H Respiratory Rate 16 Respiratory Effort Normal Non-Labored Blood Pressure 125/92 H Blood Pressure Mean 103 Pulse Ox 98 98 Oxygen Delivery Method Room Air Room Air 03/21/24 21:45 03/21/24 22:00 03/21/24 23:00 Temperature Temperature Source Pulse Rate 102 H 100 82 Respiratory Rate 16 15 21 H Respiratory Effort Blood Pressure 128/85 H 127/90 H 131/95 H Blood Pressure Mean 99 102 107 Pulse Ox Oxygen Delivery Method 03/21/24 23:56 03/22/24 00:00 Temperature 98 F Temperature Source Pulse Rate 78 77 Respiratory Rate 16 16 Respiratory Effort Blood Pressure 146/94 H 138/88 H Blood Pressure Mean 111 104 Pulse Ox 98 Oxygen Delivery Method Weight Weight: 152 lb 12.8 oz Body Mass Index (BMI) 25.4 Physical Exam Const alert, oriented x3, no apparent distress, average body habitus and healthy appearing General Appearance: cooperative HEENT normocephalic, head/scalp atraumatic, hearing grossly normal bilaterally and moist oral mucous membranes Eyes PERRL and EOMs intact bilaterally Neck no lymphadenopathy and supple Resp normal respiratory effort, no retractions, no use of accessory muscles and clear to auscultation bilaterally Cardio regular rate and regular rhythm GI normal to inspection, nondistended, normoactive bowel sounds, soft to palpation, non-tender and non-distended Extremity normal to inspection, full ROM and no clubbing, cyanosis or edema Skin Skin Narrative: Patient has no evidence of rash, abscess or jaundice. Neuro oriented x3, CN's II-XII intact bilaterally, moves all extremities and no focal motor deficits Sensorium / Orientation: awake, alert, oriented to person, oriented to place and oriented to time Speech: speech normal Psych affect normal Results Medical Records Data Attestation: I reviewed the patient's medical records Lab / Micro Data Attestation: I reviewed the patient's lab results. 03/22/24 03:50 03/22/24 03:50 Labs: Laboratory Results - last 24 hr 03/21/24 21:12: WBC 5.7, RBC 4.85, Hgb 14.2, Hct 42.2, MCV 87.0, MCH 29.3, MCHC 33.6, RDW Std Deviation 41.5, RDW Coeff of Trevor 13.2, Plt Count 190, MPV 11.1, Immature Gran % (Auto) 0.400, Neut % (Auto) 76.0 H, Lymph % (Auto) 13.9 L, Cedar % (Auto) 7.7, Eos % (Auto) 0.9, Baso % (Auto) 1.1 H, Absolute Neuts (auto) 4.3, Absolute Lymphs (auto) 0.79 L, Nucleated RBC % 0, Sodium 138, Potassium 3.8, Chloride 106, Carbon Dioxide 23.0, Anion Gap 9, BUN 24 H, Creatinine 0.86, Estim Creat Clear Calc 62.05, Est GFR (MDRD) Af Amer 85, Est GFR (MDRD) Non-Af 70, BUN/Creatinine Ratio 28.0 H, Glucose 139 H, Calcium 9.4, Troponin I High Sens 98 H Rhythm Strip Rhythm Strip: Sinus Tach Rate: 107 Ectopy: None Imaging Radiology Impression Chest X-Ray 03/21/24 21:18 IMPRESSION: Normal x-ray examination of the chest. Electronically Signed: Tee Henry MD at 21:33 EST Reading Location ID and State: [facility] / [place] Tel , Service support , Assessment & Plan Assessment/Plan (1) NSTEMI, initial episode of care: (2) History of tobacco abuse: (3) Chronic hepatitis C: QUALIFIERS: Hepatic coma status: without hepatic coma Qualified Code(s): B18.2 - Chronic viral hepatitis C (4) Anemia: QUALIFIERS: Anemia type: iron deficiency Iron deficiency anemia type: unspecified iron deficiency Qualified Code(s): D50.9 - Iron deficiency anemia, unspecified (5) Osteoarthritis: QUALIFIERS: Osteoarthritis location: unspecified site Osteoarthritis type: unspecified Qualified Code(s): M19.90 - Unspecified osteoarthritis, unspecified site PLAN: Plan 1. NSTEMI; evidenced by chest pain with dyspnea on exertion and elevated initial troponin of 98 pg/mL rising to 396 pg/mL followed by a third troponin escalating to 941 pg/mL - Admit to PCU. Continue ECASA plus add Plavix, statin and full-dose Lovenox plus Metoprolol. Serialize troponin. Check echocardiogram to evaluate LVEF. Give NTG SL prn angina. Give Morphine IV prn for severe (level 6-10/10) pain. Finally, we will consult [facility] to see this patient on-rounds in the AM for further recommendations regarding LHC this admission with help appreciated in advance. 2. History of tobacco abuse complicating #1 - Tobacco Cessation will be strongly encouraged. 3. Chronic hepatitis C - Stable. 4. MARIPOSA - Stable with hemoglobin of 14.2 g/dL present on admission. Resume current oral iron supplement. 5. OA - Give Tylenol prn for [id number] (level 1-5/10) pain or fever. 6. DVT prophylaxis - Patient on full-dose Lovenox for #1. Total time: Approximately (but not less than) 55 minutes. Charges/Coding Visit Charges Inpatient E&M: 36347 Init Hosp L2
[2024-03-22 00:24] LABS: Troponin-I HS 396 pg/mL (3.0-54.0)
[2024-03-22] MEDS: Aspirin 325 MG Tablet PO (00:28)
--- NOTE | 2024-03-22 00:28 | EKG12_ITS ---
Test Reason : CP ADMIT Blood Pressure : */* mmHG Vent. Rate : 72 BPM Atrial Rate : 72 BPM P-R Int : 186 ms QRS Dur : 80 ms QT Int : 410 ms P-R-T Axes : 70 31 48 degrees QTcB Int : 448 ms Normal sinus rhythm Normal ECG When compared with ECG of 21-Mar-2024 21:06, MANUAL COMPARISON REQUIRED DATA IS UNCONFIRMED Confirmed by ROBERT KUHN, TANNER ([id number]), scientific publications editor HARRISON GRAY ([id number]) on 03/23/2024 6:36:00 AM Referred By: BECKHAM Confirmed By: TANNER JONES MD
[2024-03-22] MEDS: Clopidogrel Bisulfate 75 MG Tablet PO ×2 (02:18→06:15)
[2024-03-22 04:06] LABS: Hematocrit 38.1 % (37-47); Hemoglobin 12.9 g/dL (12.0-15.0); Mean Corp Hgb Conc 33.9 g/dL (32-36); Mean Corpuscular Hgb 29.4 pg (27.0-32.0); Mean Corpuscular Volume 86.8 fL (81-99); Mean Platelet Vol. 10.8 fl (6.2-12.0); Platelet Count 174 K/mm3 (150-450); RBC Distribution Width CV 13.2 % (11.6-14.6); RBC Distribution Width SD 41.5 fl (35.1-43.9); Red Blood Count 4.39 M/mm3 (4.2-5.4); White Blood Count 5.2 K/mm3 (4.4-11.0)
[2024-03-22 04:22] LABS: D-Dimer Quantitative (DVT/PE) 0.35 FEU/ug/m (0.27-0.49)
[2024-03-22 04:43] LABS: AST(SGOT) 26 U/L (15-37); Alanine Aminotransfer ALT/SGPT 24 U/L (13-56); Albumin, Serum 3.6 g/dL (3.2-5.0); Alkaline Phosphatase 66 U/L (45-117); Anion Gap 4 (5-15); BUN 19 mg/dL (7-18); BUN/Creat Ratio 27.1 RATIO (10-20); Calcium,Total 8.6 mg/dL (8.5-10.1); Chloride 108 mmol/L (98-107); Cholesterol 160 mg/dL (200); EST Glomerular Filtration Rate 89 mL/min (>60); Est Glom Filt Rate - Afr Amer 107 mL/min (>60); Globulin 3.7 g/dL (2.2-4.2); Glucose 96 mg/dL (74-106); High Density Lipoprotein 51 mg/dL; Potassium 3.7 mmol/L (3.5-5.1); Protein, Total 7.3 g/dL (6.4-8.2); Sodium Level 138 mmol/L (136-145); Triglycerides 45 mg/dL; Troponin-I HS 941 pg/mL (3.0-54.0); Very Low Density Lipoprotein 9 mg/dL (5-40)
--- OUTSIDE RECORDS SUMMARY | 2024-03-22 04:52 | XMS RPT_ITS | CCD ---
Author Organization [facility] Care Team Providers Care Stack Supervisor Name Role Phone Pcp, No Primary Care Provider Unavailabl e Sheets DO, Priya Foley Primary Care Provider [phone] SHEETS, PRIYA Foley Referring Unavailable SHEETS, PRIYA [...] Test Name Value Interpretation Reference Range Facility [facility] 04-20-2022 CNOV Office Visit (AGFAMP JOAN) ANA JONES ([id number]) 1955 F Date Time Provider Department 04/20/22 [...] history and updated the [facility]. She has a history of anemia Her fecal occult blood test was negative She is taking iron once a day, rather than twice. Her Hb has been improving over the past month She had a total hysterectomy, no longer needs pap tests. She eats a healthy diet, and is going to start riding her indoor Spreet[employer] bicycle regularly. She does not use tobacco [...] diet of 1000 mg/day for under 50, 2897-6014 mg/day for 50+ 2. Other iron deficiency anemias - ICD9: 280.8, ICD10: D50.8 - ASCORBIC ACID (VITAMIN C) 500 MG TABLET (more content not included)... Normal [facility] HEMOGLOBIN (HGB)on Hemoglobin (Bld) [Mass/Vol] 13.0 g/dL 11.5 - 15.5 g/dL [facility] Hgb Bld-ncon 04-20-2022 Hemoglobin (Bld) [Mass/Vol] 13.0 g/dL Normal 11.5-15.5 [facility] Comment on above: Order Comment: Speci men Type: BLOOD SPECIMEN [facility]ing Facility: [facility] Address: [address] [place] [phone] Performed By: #### 7 18-7 #### [facility] CLIA [id number] [address] [place] [address] [place] CNOVon 03-23-2022 CNOV Office Visit (SHELLY FRANCO) ANA JONES ([id number]) 1955 F Date Time Provider Department 03/23/22 [...] like to establish with primary care at [facility] in [place]. She injured her back at work, was seen in the ED on 03/12/22 She was hospitalized at [facility] from 03/12 to 03/13 for an incidental [...] Motor fu (more content not included)... Normal [facility] HEMOGLOBIN (HGB)on Hemoglobin (Bld) [Mass/Vol] 10.9 g/dL Low 11.5 - 15.5 g/dL [facility] Hgb Bld-mCncon 03-23-2022 Hemoglobin (Bld) [Mass/Vol] 10.9 g/dL Low 11.5-15.5 [facility] Comment on above: Order Comment: Speci men Type: BLOOD SPECIMEN [facility]ing Facility: [facility] Address: [address] [place] [address] Performed By: #### 7 18-7 #### [facility] CLIA [id number] [address] [place] [address] [place] Basic metabolic 2000 panelon 03-13-2022 Anion gap [Moles/Vol] 7 mmol/L Low 9-18 [facility] Comment on above: Order Comment: Speci men Type: BLOOD SPECIMEN Ordering Facility: [facility] Address: [address] [address] Performed By: #### 7 18-7 #### [facility] CLIA [id number] [address] [place] [address] [place] Calcium [Mass/Vol] 8.7 mg/dL Normal 8.5-10.2 [facility] Comment on above: Order Comment: Speci men Type: BLOOD SPECIMEN Ordering Facility: [facility] Address: [address] [address] Performed By: #### 7 18-7 #### [facility] CLIA [id number] [address] [place] [address] [place] Chloride [Moles/Vol] 107 mmol/L High 97-105 [facility] Comment on above: Order Comment: Speci men Type: BLOOD SPECIMEN Ordering Facility: [facility] Address: [address] [address] Performed By: #### 7 18-7 #### [facility] CLIA [id number] [address] [place] [address] [place] CO2 [Moles/Vol] 24 mmol/L Normal 22-30 [facility] Comment on above: Order Comment: Rudy waddell Type: BLOOD SPECIMEN Ordering Facility: [facility] Address: [address] [place] [address] Performed By: #### 7 18-7 #### [facility] CLIA [id number] [address] [place] Creatinine [Mass/Vol] 0.67 mg/dL Normal 0.58-0.96 [facility] Comment on above: Order Comment: Rudy waddell Type: BLOOD SPECIMEN Ordering Facility: [facility] Address: [address] [place] [address] Performed By: #### 7 18-7 #### [facility] CLIA [id number] [address] [place] [address] ESTIMATED GLOMERULAR FILTRATION RATE 97 mL/min/1.73m??? Normal >=60 [facility] Comment on above: Order Comment: Rudy waddell Type: BLOOD SPECIMEN Ordering Facility: [facility] Address: [address] [place] [address] Result Comment: Kavita mated Glomerular Filtration Rate [...] GFR. Performed By: #### 7 18-7 #### [facility] CLIA [id number] [address] [place] [place] [address] [facility] Glucose [Mass/Vol] 91 mg/dL Normal 74-99 [facility] Comment on above: Order Comment: Rudy waddell Type: BLOOD SPECIMEN Ordering Facility: [facility] Address: [address] [place] [address] Result Comment: The Canadian Diabetes Association (ADA) provides guidance for cutoff [...] Standards of Medical Care in Diabetes 2016, Canadian Diabetes Association. Diabetes Care. 2016.39(Suppl 1). Performed By: #### 7 18-7 #### [facility] CLIA [id number] [address] [place] [address] [place] Potassium [Moles/Vol] 4.4 mmol/L Normal 3.7-5.1 [facility] Comment on above: Order Comment: Speci men Type: BLOOD SPECIMEN Ordering Facility: [facility] Address: [address] [address] Performed By: #### 7 18-7 #### [facility] CLIA [id number] [address] [place] [address] [place] Sodium [Moles/Vol] 138 mmol/L Normal 136-144 [facility] Comment on above: Order Comment: Speci men Type: BLOOD SPECIMEN Ordering Facility: [facility] Address: [address] [address] Performed By: #### 7 18-7 #### [facility] CLIA [id number] [address] [place] [address] [place] Urea nitrogen [Mass/Vol] 17 mg/dL Normal 7-21 [facility] Comment on above: Order Comment: Speci men Type: BLOOD SPECIMEN Ordering Facility: [facility] Address: [address] [address] Performed By: #### 7 18-7 #### [facility] CLIA [id number] [address] [place] CBC panel Auto (Bld)on 03-13 Erythrocyte distribution width (RBC) [Ratio] 16.4 % High 11.5-15.0 [facility] Comment on above: Order Comment: Speci men Type: BLOOD SPECIMEN Ordering Facility: [facility] Address: [address] [place] [address] Performed By: #### 7 18-7 #### [facility] CLIA [id number] [address] [place] [address] Hematocrit (Bld) [Volume fraction] 26.3 % Low 36.0-46.0 [facility] Comment on above: Order Comment: Speci men Type: BLOOD SPECIMEN Ordering Facility: [facility] Address: [address] [place] [address] Performed By: #### 7 18-7 #### [facility] CLIA [id number] [address] [place] [address] Hemoglobin (Bld) [Mass/Vol] 8.1 g/dL Low 11.5-15.5 [facility] Comment on above: Order Comment: Speci men Type: BLOOD SPECIMEN Ordering Facility: [facility] Address: [address] [place] [address] Performed By: #### 7 18-7 #### [facility] CLIA [id number] [address] [place] [address] [place] MCH (RBC) [Entitic mass] 24.8 pg Low 26.0-34.0 [facility] Comment on above: Order Comment: Speci men Type: BLOOD SPECIMEN Ordering Facility: [facility] Address: [address] [place] [address] Performed By: #### 7 18-7 #### [facility] CLIA [id number] [address] [place] [address] [place] MCHC (RBC) [Mass/Vol] 30.8 g/dL Normal 30.5-36.0 [facility] Comment on above: Order Comment: Speci men Type: BLOOD SPECIMEN Ordering Facility: [facility] Address: [address] [place] [address] Performed By: #### 7 18-7 #### [facility] CLIA [id number] [address] [place] [address] [place] MCV (RBC) [Entitic vol] 80.4 fL Normal 80.0-100.0 [facility] Comment on above: Order Comment: Speci men Type: BLOOD SPECIMEN Ordering Facility: [facility] Address: [address] [place] [address] Performed By: #### 7 18-7 #### [facility] CLIA [id number] [address] [place] [address] [place] Platelet mean volume (Bld) [Entitic vol] 10.6 fL Normal 9.0-12.7 [facility] Comment on above: Order Comment: Speci men Type: BLOOD SPECIMEN Ordering Facility: [facility] Address: [address] [place] [address] Performed By: #### 7 18-7 #### [facility] CLIA [id number] [address] [place] [address] [place] Platelets (Bld) [#/Vol] 206 10*3/uL Normal 150-400 [facility] Comment on above: Order Comment: Speci men Type: BLOOD SPECIMEN Ordering Facility: [facility] Address: [address] [place] [address] Performed By: #### 7 18-7 #### [facility] CLIA [id number] [address] [place] [address] [place] RBC (Bld) [#/Vol] 3.27 10*6/uL Low 3.90-5.20 [facility] Comment on above: Order Comment: Speci men Type: BLOOD SPECIMEN Ordering Facility: [facility] Address: [address] [place] [address] Performed By: #### 7 18-7 #### [facility] CLIA [id number] [address] [place] [address] [facility] [place] WBC (Bld) [#/Vol] 3.64 10*3/uL Low 3.70-11.00 [facility] Comment on above: Order Comment: Rudy waddell Type: BLOOD SPECIMEN Ordering Facility: [facility] Address: [address] [place] [address] [place] [address] Performed By: #### 7 18-7 #### [facility] CLIA [id number] [address] [place] [address] [facility] CNDSon 03-13-2022 CNDS HNO ID: [id number] Author: Lizzette Su APRN.[employer] MANAGER Service: Hospital Medicine Author Type: Nurse Practitioner Type: Discharge Summary Filed: 03/13/2022 12:24 PM Note Text: Attestation signed by Melvin Cardenas MD at 05/05/2022 3:19 PM Attending Note I have personally reviewed the SAM note and have discussed the management of this patient with the SAM. Other additions or changes: As edited Signature: Melvin Cardenas MD, [facility], [facility] Date: March 12, 2022 Time: 7:19 PM [...] for back pain, anemia. You presented to [place] for back pain which began at work [...] call for appointment?: Yes Priya Blount DO [phone] [place] [address] PCP Requested Referral Additional Provider to Provider Information: You presented to [place] for back pain which began at work [...] will also (more content not included)... Normal [facility] Hemoccult Stl Ql IAon 2021 Lower GI hemoglobin IA Ql (Stl) Negative Normal Negative [facility] Comment on above: Order Comment: Speci men Type: STOOL SPECIMEN Ordering Facility: [facility] Address: [address] [place] [phone] Performed By: #### 2 9771-3 #### [facility] CLIA [id number] [address] [place], [place] [address] [place] US DVT LOWER RTon 03-13-2022 US DVT [...] imaged segments of the right lower extremity. Public Housing Manager: PSCB Transcribe Date/Time: Mar 13 2022 12:39P Dictated by : TERRENCE YOUNG MD This examination was interpreted and the report reviewed and electronically signed by: TERRENCE YOUNG MD on Mar 13 2022 12:40PM EST [id number] Normal [facility] ALLIED HEALTHon 03-12-2022 ALLIED HEALTH HNO ID: [id number] Author: RT Lory(R) Service: ? Author Type: Travel Insurance Agent Type: Allied Health Filed: 03/12/2022 8:23 AM [...] March 12, 2022 TIME: 8:22 AM Normal [facility] Basic metabolic 2000 panelon 03-12-2022 Anion gap [Moles/Vol] 9 mmol/L Normal 9-18 [facility] Comment on above: Order Comment: Speci men Type: URINE SPECIMEN Ordering Facility: [facility] Address: [address] [place] [address] Performed By: #### L [id number] #### [facility] CLIA [id number] [address] [place] [address] [place] Calcium [Mass/Vol] 8.9 mg/dL Normal 8.5-10.2 [facility] Comment on above: Order Comment: Speci men Type: URINE SPECIMEN Ordering Facility: [facility] Address: [address] [place] [address] Performed By: #### L [id number] #### [facility] CLIA [id number] [address] [place] [address] [place] Chloride [Moles/Vol] 101 mmol/L Normal 97-105 [facility] Comment on above: Order Comment: Speci men Type: URINE SPECIMEN Ordering Facility: [facility] Address: [address] [place] [address] Performed By: #### L [id number] #### [facility] CLIA [id number] [address] [place] [address] [place] CO2 [Moles/Vol] 24 mmol/L Normal 22-30 [facility] Comment on above: Order Comment: Speci men Type: URINE SPECIMEN Ordering Facility: [facility] Address: [address] [place] [address] Performed By: #### L [id number] #### [facility] CLIA [id number] [address] [place] [address] [place] Creatinine [Mass/Vol] 0.68 mg/dL Normal 0.58-0.96 [facility] Comment on above: Order Comment: Speci men Type: URINE SPECIMEN [facility]ing Facility: [facility] Address: [address] [place] [address] Performed By: #### L [id number] #### [facility] CLIA [id number] [address] [place] [address] ESTIMATED GLOMERULAR FILTRATION RATE 97 mL/min/1.73m??? Normal >=60 [facility] Comment on above: Order Comment: Speci men Type: URINE SPECIMEN [facility]ing Facility: [facility] Address: [address] [place] [address] Result Comment: Kavita mated Glomerular Filtration Rate [...] reflect actual GFR. Performed By: #### L [id number] #### [facility] CLIA [id number] [address] [place] [address] [place] Glucose [Mass/Vol] 96 mg/dL Normal 74-99 [facility] Comment on above: Order Comment: Speci men Type: URINE SPECIMEN [facility]ing [facility]: [facility] Address: [address] [place] [address] Result Comment: The Canadian Diabetes Association (ADA) provides guidance for cutoff [...] Standards of Medical Care in Diabetes 2016, Canadian Diabetes Association. Diabetes Care. 2016.39(Suppl 1). Performed By: #### L [id number] #### [facility] CLIA [id number] [address] [place] [address] [place] Potassium [Moles/Vol] 3.9 mmol/L Normal 3.7-5.1 [facility] Comment on above: Order Comment: Speci men Type: URINE SPECIMEN Ordering Facility: [facility] Address: [address] [place] [address] Performed By: #### L [id number] #### [facility] CLIA [id number] [address] [place] [address] [place] Sodium [Moles/Vol] 134 mmol/L Low 136-144 [facility] Comment on above: Order Comment: Speci men Type: URINE SPECIMEN Ordering Facility: [facility] Address: [address] [place] [address] Performed By: #### L [id number] #### [facility] CLIA [id number] [address] [place] [address] [place] Urea nitrogen [Mass/Vol] 28 mg/dL High 7-21 [facility] Comment on above: Order Comment: Speci men Type: URINE SPECIMEN Ordering Facility: [facility] Address: [address] [address] Performed By: #### L [id number] #### [facility] CLIA [id number] [address] [place] [address] [facility] CBC W Auto Differential pane l (Bld)on 03-12-2022 Basophils (Bld) [#/Vol] 0.05 10*3/uL Normal <0.11 [facility] Comment on above: Order Comment: Speci men Type: BLOOD SPECIMEN [facility]ing [facility]: [facility] Address: [address] [place] [address] Performed By: #### 5 7021-8 #### [facility] CLIA [id number] [address] [place] [address] Basophils/100 WBC (Bld) 1.2 % Normal [facility] Comment on above: Order Comment: Speci men Type: BLOOD SPECIMEN [facility]ing Facility: [facility] Address: [address] [place] [address] Performed By: #### 5 7021-8 #### [facility] CLIA [id number] [address] [place] [address] Differential cell count method Nom (Bld) Auto Normal [facility] Comment on above: Order Comment: Speci men Type: BLOOD SPECIMEN [facility]ing [facility]: [facility] Address: [address] [place] [address] Performed By: #### 5 7021-8 #### [facility] CLIA [id number] [address] [place] [address] [place] Eosinophils (Bld) [#/Vol] 0.09 10*3/uL Normal <0.46 [facility] Comment on above: Order Comment: Speci men Type: BLOOD SPECIMEN [facility]ing [facility]: [facility] Address: [address] [place] [address] Performed By: #### 5 7021-8 #### [facility] CLIA [id number] [address] [place] [address] Eosinophils/100 WBC (Bld) 2.1 % Normal [facility] Comment on above: Order Comment: Speci men Type: BLOOD SPECIMEN [facility]ing [facility]: [facility] Address: [address] [place] [address] Performed By: #### 5 7021-8 #### [facility] CLIA [id number] [address] [place] Erythrocyte distribution width (RBC) [Ratio] 15.7 % High 11.5-15.0 [facility] Comment on above: Order Comment: Speci men Type: BLOOD SPECIMEN [facility]ing [facility]: [facility] Address: [address] [place] [address] Performed By: #### 5 7021-8 #### [facility] CLIA [id number] [address] [place] [address] [place] Hematocrit (Bld) [Volume fraction] 21.5 % Low 36.0-46.0 [facility] Comment on above: Order Comment: Speci men Type: BLOOD SPECIMEN [facility]ing Facility: [facility] Address: [address] [place] [address] Performed By: #### 5 7021-8 #### [facility] CLIA [id number] [address] [place] [address] [place] Hemoglobin (Bld) [Mass/Vol] 6.5 g/dL Low 11.5-15.5 [facility] Comment on above: Order Comment: Speci men Type: BLOOD SPECIMEN [facility]ing [facility]: [facility] Address: [address] [place] [address] Performed By: #### 5 7021-8 #### [facility] CLIA [id number] [address] [place] Lymphocytes (Bld) [#/Vol] 0.80 10*3/uL Low 1.00-4.00 [facility] Comment on above: Order Comment: Speci men Type: BLOOD SPECIMEN [facility]ing [facility]: [facility] Address: [address] [place] [address] Performed By: #### 5 7021-8 #### [facility] CLIA [id number] [address] [place] [address] Lymphocytes/100 WBC (Bld) 18.6 % Normal [facility] Comment on above: Order Comment: Speci men Type: BLOOD SPECIMEN [facility]ing [facility]: [facility] Address: [address] [place] [address] Performed By: #### 5 7021-8 #### [facility] CLIA [id number] [address] OF [facility] MCH (RBC) [Entitic mass] 24.1 pg Low 26.0-34.0 [facility] Comment on above: Order Comment: Speci men Type: BLOOD SPECIMEN [facility]ing [facility]: [facility] Address: [address] [place] [address] Performed By: #### 5 7021-8 #### [facility] CLIA [id number] [address] [place] [address] MCHC (RBC) [Mass/Vol] 30.2 g/dL Low 30.5-36.0 [facility] Comment on above: Order Comment: Speci men Type: BLOOD SPECIMEN [facility]ing [facility]: [facility] Address: [address] [place] [address] Performed By: #### 5 7021-8 #### [facility] CLIA [id number] [address] [place] [address] STATES [facility] MCV (RBC) [Entitic vol] 79.6 fL Low 80.0-100.0 [facility] Comment on above: Order Comment: Speci men Type: BLOOD SPECIMEN [facility]ing [facility]: [facility] Address: [address] [place] [address] Performed By: #### 5 7021-8 #### [facility] CLIA [id number] [address] [place] [address] Monocytes (Bld) [#/Vol] 0.44 10*3/uL Normal <0.87 [facility] Comment on above: Order Comment: Speci men Type: BLOOD SPECIMEN [facility]ing Facility: [facility] Address: [address] [place] [address] Performed By: #### 5 7021-8 #### [facility] CLIA [id number] [address] [place], [place] [address] [place] [address] [place] Monocytes/100 WBC (Bld) 10.3 % Normal [facility] Comment on above: Order Comment: Speci men Type: BLOOD SPECIMEN [facility]ing [facility] Address: [address] [place] [address] Performed By: #### 5 7021-8 #### [facility] CLIA [id number] [address] [place] [address] [place] Neutrophils (Bld) [#/Vol] 2.91 10*3/uL Normal 1.45-7.50 [facility] Comment on above: Order Comment: Speci men Type: BLOOD SPECIMEN [facility]ing [facility]: [facility] Address: [address] [place] [address] Performed By: #### 5 7021-8 #### [facility] CLIA [id number] [address] [place] Neutrophils/100 WBC (Bld) 67.8 % Normal [facility] Comment on above: Order Comment: Speci men Type: BLOOD SPECIMEN [facility]ing Facility: [facility] Address: [address] [place] [address] Performed By: #### 5 7021-8 #### [facility] CLIA [id number] [address] [id number] [place] Platelet mean volume (Bld) [Entitic vol] 10.9 fL Normal 9.0-12.7 [facility] Comment on above: Order Comment: Speci men Type: BLOOD SPECIMEN [facility]ing Facility: [facility] Address: [address] [place] [address] Performed By: #### 5 7021-8 #### [facility] CLIA [id number] [address] Platelets (Bld) [#/Vol] 216 10*3/uL Normal 150-400 [facility] Comment on above: Order Comment: Rudy waddell Type: BLOOD SPECIMEN [facility]ing Facility: [facility] Address: [address] [place] [address] Performed By: #### 5 7021-8 #### [facility] CLIA [id number] [address] RBC (Bld) [#/Vol] 2.70 10*6/uL Low 3.90-5.20 [facility] Comment on above: Order Comment: Rudy waddell Type: BLOOD SPECIMEN [facility]ing [facility]: [facility] Address: [address] [place] [address] Performed By: #### 5 7021-8 #### [facility] CLIA [id number] [address] WBC (Bld) [#/Vol] 4.29 10*3/uL Normal 3.70-11.00 [facility] Comment on above: Order Comment: Rudy waddell Type: BLOOD SPECIMEN [facility]ing Facility: [facility] Address: [address] [place] [address] Performed By: #### 5 7021-8 #### [facility] CLIA [id number] [address] Maged 03-12-2022 HUYN Telephone (COLEMAN) ANA JONES ([id number]) 1955 F Date Time Provider Department 03/12/22 AMARIS CRAWFORD During your visit today, we recorded the following information about you: Amaris Crawford MD 03/12/2022 10:05 AM Signed RQB note error Allergies As of Date: 03/12/2022 (No Known Allergies) Date Reviewed: 03/12/2022 Reviewed by: Rafal Sommers MD - Fully Assessed Reason for Visit: Hospital To Hospital [[id number]] Facility-Administered Medications as of 03/12/2022 - iv contrast (radiology procedure) Problem List As Of Date: 03/12/2022 (None) Encounter Status:Closed by AMARIS CRAWFORD on 03/12/[address] [facility] [address] ABD/PEL W IVCONon 022 CT ABD/PEL [...] Tissues: No significant finding. Lower thorax: Unremarkable. Machine Bander And Cellophaner Helper (topogram) images: No additional findings. IMPRESSION: No evidence of acute process in the abdomen and pelvis. Public Housing Manager: PSCB Transcribe Date/Time: Mar 12 2022 9:08A Dictated by : YUDY OLIVO MD This examination was interpreted and the report reviewed and electronically signed by: YUDY OLIVO MD on Mar 12 2022 9:18AM EST [id number] [facility] ED NOTEon 03-12-2022 ED NOTE HNO ID: [id number] Author: Patricia Arriola RN Service: Nursing Author Type: Registered Nurse Type: ED Notes Filed: 03/12/2022 12:44 PM Note Text: Patient informed: the name of medication, why we are giving it, possible side effects, what they may expect to feel, and was offered a chance to ask questions, prior to the administration of Toradol [facility] ED NOTE HNO ID: [id number] Author: Angela Masters RN Service: Emergency Medicine Author Type: Registered Nurse Type: ED Notes Filed: 03/12/2022 10:03 AM Note Text: Call to [facility] to check if they would have a bed available- they do not have a bed [facility] ED NOTE HNO ID: [id number] Author: Patricia Arriola RN Service: Nursing Author Type: Registered Nurse Type: ED Notes Filed: 03/12/2022 10:00 AM Note Text: Transfer line called, there is a bed open at [facility], pt does not want to go there. She asked for us to contact [facility] since that is close to her home, I will inform Angela Steen RN of pt request. [facility] ED NOTE HNO ID: [id number] Author: Angela Masters RN Service: Emergency Medicine Author Type: Registered Nurse Type: ED Notes Filed: 03/12/2022 9:46 AM Note Text: Call from [facility] transfer line, [facility] is full now- asking if we want pt on wait list. They will checked with [facility], they are also full. Informed [facility] transfer line we would like pt to stay on wait list for [facility]. Paged hospitalist for [facility] also. [facility] ED NOTE HNO ID: [id number] Author: Carlo Youngblood RN Service: Emergency Medicine Author Type: Registered Nurse Type: ED Notes Filed: 03/12/2022 7:26 AM Note Text: Change of shift report given to Patricia Delgado RN. Transfer of patient care given to Patricia Delgado RN. [facility] ED NOTE HNO ID: [id number] Author: Patricia Arriola RN Service: Nursing Author Type: Registered Nurse Type: ED Notes Filed: 03/12/2022 7:25 AM Note Text: Patient informed: the name of medication, why we are giving it, possible side effects, what they may expect to feel, and was offered a chance to ask questions, prior to the administration of Toradol [facility] ED NOTE HNO ID: [id number] Author: Patricia Arriola RN Service: Nursing Author Type: Registered Nurse Type: ED Notes Filed: 03/12/2022 7:24 AM Note Text: Report from SOCORRO Matos [facility] ED NOTE HNO ID: [id number] Author: Carlo Youngblood RN Service: Emergency Medicine Author Type: Registered Nurse Type: ED Notes Filed: 03/12/2022 6:56 AM Note Text: 66 y/o female presenting to the ED via [facility] with complaint of severe lower [...] access prior to arrival to the ED. [facility] ED PROV NOTEon 03-12-2022 ED PROV NOTE HNO ID: [id number] Author: Rafal Sommers MD Service: Emergency Medicine [...] MD Rafal Silver MD 03/12/22 1106 Normal [facility] Ferritin SerPl-mCncon 2021 Ferritin [Mass/Vol] 7.2 ng/mL Low 14.7-205.1 [facility] Comment on above: Order Comment: Speci men Type: URINE SPECIMEN Ordering Facility: [facility] Address: [place] [address] Performed By: #### L [id number] #### [facility] CLIA [id number] [address] [place] [address] [place] Folate SerPl-mCncon 11-10-20 22 Folate [Mass/Vol] 7.6 ng/mL Normal >4.7 [facility] Comment on above: Order Comment: Speci men Type: BLOOD SPECIMEN Ordering Facility: [facility] Address: [place] [address] Performed By: #### 7 18-7 #### [facility] CLIA [id number] [address] [place] [address] [place] HISTORY PHYSICALon HISTORY PHYSICAL HNO ID: [id number] Author: Isacc Eagle PA-C Service: Hospital Medicine Author Type: Physician College Archivist Type: HANDP Filed: 03/12/2022 3:45 PM Note Text: Attestation signed by Melvin Cardenas MD at 05/05/2022 3:18 PM Attending Note I have personally reviewed the SAM note and have discussed the management of this patient with the SAM. Other additions or changes: As edited Signature: Melvin Cardenas MD, [facility], [facility] Date: March 12, 2022 Time: 7:18 PM DEPARTMENT OF HOSPITAL MEDICINE HISTORY AND PHYSICAL EXAM SERVICE DATE: 03/12/2022 Code Status: Not on file SERVICE TIME: 3:31 PM Primary Care Physician: No Pcp NIGHT AND WEEKEND COVERAGE: [facility] Medicine Coverage Subjective CHIEF COMPLAINT: Back [...] symptoms. Patient was subsequently admitted to the [facility] Medicine service for further evaluation and management. Initially patient was to be transferred, but she refused transfer to [facility] and no other open beds. PAST MEDICAL [...] and GI (more content not included)... Normal [facility] Iron and Iron binding capaci ty panelon 03-12-2022 Iron [Mass/Vol] 12 ug/dL Low 41-186 [facility] Comment on above: Order Comment: Ruyd waddell Type: BLOOD SPECIMEN Ordering Facility: [facility] Address: [address] [address] Performed By: #### 7 18-7 #### [facility] CLIA [id number] [address] [place] [address] [place] Iron binding capacity [Mass/Vol] 387 ug/dL High 232-386 [facility] Comment on above: Order Comment: Rudy waddell Type: BLOOD SPECIMEN Ordering Facility: [facility] Address: [address] [address] Performed By: #### 7 18-7 #### [facility] CLIA [id number] [address] [place] [address] [facility] Iron saturation [Mass fraction] 3.1 % Low 15.0-57.0 [facility] Comment on above: Order Comment: Speci men Type: BLOOD SPECIMEN Ordering Facility: [facility] Address: [address] [place], [place] [phone] Performed By: #### 7 18-7 #### [facility] CLIA [id number] [address] [place] [address] [facility] NURSING PROGon 03-12-2022 NURSING PROG HNO ID: [id number] Author: Ivelises Galvan RN Service: Nursing Author Type: Registered [...] contact) to receive information. Ivelisse Galvan RN [facility] SARS-CoV-2 RNA Resp Ql ELIESER+p robeon 03-12-2022 SARS-CoV-2 (COVID-19) RNA ELIESER+probe Ql (Resp) COVID 19 RESULT: SARS-CoV-2 (Agent of COVID-19) Not Detected by RT-PCR or equivalent method. This test has been authorized by FDA under an Emergency Use Authorization (EUA). Normal [facility] Comment on above: Performed By: #### 9 4500-6 ####[facility] [id number] [place] [address] [facility] TYPE + SCREENon 03-12-2022 ABO O [facility] Comment on above: Order Comment: Speci men Type: BLOOD SPECIMEN Ordering Facility: [facility] Address: [address] [phone] Performed By: #### T SCR #### [facility] CLIA [id number] [address] HISTORICAL AB SCR STATUS Negative Normal [facility] Comment on above: Order Comment: Speci men Type: BLOOD SPECIMEN Ordering Facility: [facility] Address: [address] [address] Performed By: #### T SCR #### [facility] CLIA [id number] [address] Rh Nom (Bld) Positive Normal [facility] Comment on above: Order Comment: Speci men Type: BLOOD SPECIMEN Ordering Facility: [facility] Address: [address] [place] [address] Performed By: #### T SCR #### [facility] CLIA [id number] [address] TYPE AND SCREEN EXPIRATION 03/15/2022 23:59 Normal [facility] Comment on above: Order Comment: Speci men Type: BLOOD SPECIMEN Ordering Facility: [facility] Address: [address] [address] Performed By: #### T SCR #### [facility] CLIA [id number] [address] URINALYSIS, REFLEX MICROSCOP ICon 03-12-2022 Bilirubin Ql (U) Negative Normal Negative [facility] Comment on above: Order Comment: Speci men Type: URINE SPECIMEN Ordering Facility: [facility] Address: [address] [address] Performed By: #### L [id number] #### [facility] CLIA [id number] [address] [place] [address] Clarity (Unsp spec) Clear Normal Clear [facility] Comment on above: Order Comment: Speci men Type: URINE SPECIMEN Ordering Facility: [facility] Address: [address] [address] Performed By: #### L [id number] #### [facility] CLIA [id number] [address] [place] [address] [facility] [place] Color (U) Yellow Normal Yellow [facility] Comment on above: Order Comment: Speci men Type: URINE SPECIMEN Ordering Facility: [facility] Address: [address] [place] [address] Performed By: #### L [id number] #### [facility] CLIA [id number] [address] [id number] [facility] [place] Epithelial cells LM.HPF (Urine sed) [#/Area] Few Normal [facility] Comment on above: Order Comment: Speci men Type: URINE SPECIMEN Ordering Facility: [facility] Address: [address] [place] [address] Performed By: #### L [id number] #### [facility] CLIA [id number] [address] [place] [address] Glucose Test strip (U) [Mass/Vol] Negative Normal Negative [facility] Comment on above: Order Comment: Speci men Type: URINE SPECIMEN Ordering Facility: [facility] Address: [address] [place] [address] Performed By: #### L [id number] #### [facility] CLIA [id number] [address] [place] [address] [place] Hemoglobin Ql (U) Trace Abnormal Negative [facility] Comment on above: Order Comment: Speci men Type: URINE SPECIMEN Ordering Facility: [facility] Address: [address] [place] [address] Performed By: #### L [id number] #### [facility] CLIA [id number] [address] [place] [address] [place] Ketones Ql (U) Negative Normal Negative [facility] Comment on above: Order Comment: Speci men Type: URINE SPECIMEN Ordering Facility: [facility] Address: [address] [place] [address] Performed By: #### L [id number] #### [facility] CLIA [id number] [address] [place] [address] [facility] Leukocyte esterase Test strip Ql (U) Negative Normal Negative [facility] Comment on above: Order Comment: Speci men Type: URINE SPECIMEN Ordering Facility: [facility] Address: [address] [place] [address] Performed By: #### L [id number] #### [facility] CLIA [id number] [address] [place], [place] [id number] [place] [address] [place] Nitrite Ql (U) Negative Normal Negative [facility] Comment on above: Order Comment: Speci men Type: URINE SPECIMEN Ordering Facility: [facility] Address: [address] [place] [address] Performed By: #### L [id number] #### [facility] CLIA [id number] [address] [place] pH (U) 7.0 [pH] Normal 5.0-8.0 [facility] Comment on above: Order Comment: Speci men Type: URINE SPECIMEN Ordering Facility: [facility] Address: [address] [place] [address] Performed By: #### L [id number] #### [facility] CLIA [id number] [address] Protein (U) [Mass/Vol] Negative Normal Negative [facility] Comment on above: Order Comment: Speci men Type: URINE SPECIMEN Ordering Facility: [facility] Address: [address] [place] [address] Performed By: #### L [id number] #### [facility] CLIA [id number] [address] RBC LM.HPF (Urine sed) [#/Area] 0-3 /HPF Normal 0-3 /HPF [facility] Comment on above: Order Comment: Speci men Type: URINE SPECIMEN Ordering Facility: [facility] Address: [address] [place] [address] Performed By: #### L [id number] #### [facility] CLIA [id number] [address] [place] [address] STATES [facility] Specific gravity (U) [Rel density] 1.020 Normal 1.005-1.030 [facility] Comment on above: Order Comment: Speci men Type: URINE SPECIMEN Ordering Facility: [facility] Address: [address] [place] [address] Performed By: #### L [id number] #### [facility] CLIA [id number] [address] [place] [address] Urobilinogen Ql (U) 0.2 EU/dL Normal 0.2-1.0 EU/dL [facility] Comment on above: Order Comment: Speci men Type: URINE SPECIMEN Ordering Facility: [facility] Address: [address] [place] [address] Performed By: #### L [id number] #### [facility] CLIA [id number] [address] [place] [address] WBC LM.HPF (Urine sed) [#/Area] 0-5 /HPF Normal 0-5 /HPF [facility] Comment on above: Order Comment: Speci men Type: URINE SPECIMEN Ordering Facility: [facility] Address: [address] [place] [address] Performed By: #### L [id number] #### [facility] CLIA [id number] [address] [place] [address] [place] Vit B12 SerPl-ncon 022 Cobalamin (Vitamin B12) [Mass/Vol] 627 pg/mL Normal 232-1245 [facility] Comment on above: Order Comment: Speci men Type: BLOOD SPECIMEN Ordering Facility: [facility] Address: [address] [place] [address] Performed By: #### 7 18-7 #### [facility] CLIA [id number] [address] [place] [address] [place] XR RIB/CHST 3V AP [...] No evidence of a left rib fracture. Public Housing Manager: SHAWNA Transcribe Date/Time: Mar 12 2022 9:19A Dictated by : YUDY OLIVO MD This examination was interpreted and the report reviewed and electronically signed by: YUDY OLIVO MD on Mar 12 2022 9:21AM EST [id number] Normal [facility] Vital Signs Date Time Vital Sign Value Performing Clinician Meg arechiga 04-20-2022 10:43-0500 Diastolic blood pressure 84 mm[Hg] Priya Sheets DO Work Phone: [facility] 04-20-2022 10:43-0500 Systolic blood pressure 136 mm[Hg] Priya Sheets DO Work Phone: [facility] 04-20-2022 10:30-0500 Body height 160.7 cm Priya Sheets DO Work Phone: [facility] 04-20-2022 10:30-0500 Body temperature 97.59 [degF] Priya Sheets DO Work Phone: [facility] 04-20-2022 10:30-0500 Body weight 67.59 kg Priya Sheets DO Work Phone: [facility] 04-20-2022 10:30-0500 Heart rate 61 /min Priya Sheets DO Work Phone: [facility] 04-20-2022 10:30-0500 Respiratory rate 16 /min Priya Sheets DO Work Phone: [facility] 04-20-2022 10:30-0500 SaO2% (BldA) [Mass fraction] 100 % Priya Sheets DO Work Phone: [facility] 03-23-2022 15:00-0500 Diastolic blood pressure 90 mm[Hg] Priya Sheets DO Work Phone: [facility] 03-23-2022 15:00-0500 Systolic blood pressure 130 mm[Hg] Priya Sheets DO Work Phone: [facility] 03-23-2022 14:34-0500 Body height 160.7 cm Priya Sheets DO Work Phone: [facility] 03-23-2022 14:34-0500 Body temperature 98.4 [degF] Priya Sheets DO Work Phone: [facility] 03-23-2022 14:34-0500 Body weight 66.13 kg Priya Sheets DO Work Phone: [facility] 03-23-2022 14:34-0500 Heart rate 79 /min Priya Sheets DO Work Phone: [facility] 03-23-2022 14:34-0500 Respiratory rate 16 /min Priya Sheets DO Work Phone: [facility] 03-23-2022 14:34-0500 SaO2% (BldA) [Mass fraction] 99 % Priya Sheets DO Work Phone: [facility] Encounters Encounter Date Encounter Type Care Provider Facility Start: 04-20-2022 End: 04-21-2022 ambulatory PRIYA C SHEETS Facility:[facility] Start: 04-20-2022 Encounter for genera l adult medical examination without abnormal findings PRIYA C SHEETS [facility] Start: 04-20-2022 End: 04-20-2022 Patient encounter procedure Priya C Sheets DO Work Phone: [facility] Comment on above: Well adult exam (Aide lizy Dx); Other iron deficiency anemias; Elevated blood pressure reading without diagnosis of hypertension; GERD without esophagitis; Status post hysterectomy Start: 04-20-2022 End: 04-20-2022 Patient encounter status Priya Blount DO Work Phone: [facility] Start: 03-23-2022 End: 03-24-2022 ambulatory PRIYA BLOUNT Facility:[facility] Start: 03-23-2022 End: 03-23-2022 Patient encounter procedure Priya Foley Sheets DO Work Phone: [facility] Comment on above: Other iron deficienc y anemia (Primary Dx); Elevated blood pressure reading without diagnosis of hypertension Start: 03-12-2022 Telephone encounter Amaris Crawford MD Work Phone: [place] [facility] Comment on above: [facility] Start: 03-12-2022 End: 03-13-2022 ambulatory [facility] Facility:[facility] Procedures Date Procedure Procedure Detail Performing Clinician Start: 03-12-2022 Antibody screen CATALINA BLOUNT Comment on above: Order Comment: Speci men Type: BLOOD SPECIMEN Ordering Facility: [facility] Address: [address] [place], [place] [phone] Performed By: #### T SCR #### [facility] [place] [id number] [address] [place] [address] [place] H/O: hysterectomy Status post hysterectomy Priya Foley Sheets DO Work Phone: Plan of Treatment Date Care Activity Detail Author Start: 03-13-2025 DIABETES SCREEN DIABETES SCREEN [facility] Start: 03-12-2025 DIABETES SCREEN DIABETES SCREEN [facility] Start: 04-20-2023 LIPID SCREEN LIPID SCREEN [facility] Comment on above: Postponed from 04/22 (Declined at this time) Start: 04-20-2023 Mammography MAMMOGRAM [facility] Comment on above: Postponed from 04/22 (Declined at this time) Start: 03-23-2023 COVID-19 VACCINE (5 - Booster for Moderna series) COVID-19 VACCINE (5 - Booster for Moderna series) [facility] Comment on above: Postponed from 12/13 (Declined at this time) Start: 03-23-2023 PNEUMOCOCCAL: 65+ (1 - PCV) PNEUMOCOCCAL: 65+ (1 - PCV) [facility] Comment on above: Postponed from 04/22 (Declined at this time) Start: 03-23-2023 SHINGRIX VACCINE (1 of 2) SHINGRIX V ACCINE (1 of 2) [facility] Comment on above: Postponed from 04/22 (Declined at this time) Start: 03-23-2023 Urine microalbumin profile DTAP,TDAP,TD (1 - Tdap) [facility] Comment on above: Postponed from 04/22 (Declined at this time) Start: 03-13-2023 COLORECTAL CANCER SCREENING COLORECTAL CANCER SCREENING [facility] Start: 03-13-2023 FECAL OCCULT BLOOD FECAL OCCULT BLOO D [facility] Start: 10-30-2022 Influenza vaccination INFLUENZA (#1) [facility] Comment on above: Postponed from 01/01 (Declined at this time) Start: 01-01-2022 Influenza vaccination INFLUENZA (#1) [facility] Start: 05-03-2021 ADVANCE DIRECTIVE DISCUSSION ADVANCE DIRECTIVE DISCUSSION [facility] Start: 05-03-2021 DEPRESSION ASSESSMENT DEPRESSION ASS ESSMENT [facility] Start: 2021 BONE DENSITY BONE DENSITY [facility] Start: 2021 PNEUMOCOCCAL: 65+ (1 - PCV) PNEUMOCOCCAL: 65+ (1 - PCV) [facility] Start: 2006 SHINGRIX VACCINE (1 of 2) SHINGRIX V ACCINE (1 of 2) [facility] Start: 2001 COLOGUARD (FIT-DNA) COLOGUARD (FIT-D NA) [facility] Start: 2001 Colonoscopy COLONOSCOPY [facility] Start: 2001 COLORECTAL CANCER SCREENING COLORECTAL CANCER SCREENING [facility] Start: [address] COLONOGRAPHY [facility] Start: 2001 FECAL OCCULT BLOOD FECAL OCCULT BLOO D [facility] Start: 2001 LIPID SCREEN LIPID SCREEN [facility] Start: 2001 SIGMOIDOSCOPY SIGMOIDOSCOPY [facility] Start: 1996 Mammography MAMMOGRAM [facility] Start: 1975 Urine microalbumin profile DTAP,TDAP,TD (1 - Tdap) [facility] Start: 1974 HEPATITIS C SCREENING HEPATITIS C SC REENING [facility] Start: 1974 HIV SCREENING HIV SCREENING [facility] Start: 1956 COVID-19 VACCINE (#1) COVID-19 VACCI NE (#1) [facility] Immunizations Immunization Date Immunization Notes Care Provider Fa cility 10-18-2021 COVID-19 original vaccine, booster dose, monovalent (MODERNA) Priya Sheets DO Work Phone: [facility] 06-07-2021 COVID-19 original vaccine, booster dose, monovalent (MODERNA) Priya Sheets DO Work Phone: [facility] 09-20-2020 COVID-19 original vaccine, full dose, monovalent (MODERNA) Priya Sheets DO Work Phone: [facility] 08-20-2020 COVID-19 original vaccine, full dose, monovalent (MODERNA) Priya Sheets DO Work Phone: [facility] Payers Date Payer Category Payer Unknown [facility] [id number] 2022-Present [phone] [place] [address] [id number] 2021 Medicare [id number] 2016 Private Health Insurance [facility] UMR CHOICE PLUS [id number] 2016-Present [phone] [address] [address] [place] [address] HMO [id number] 2016 Unknown [id number] Social History Date Type Detail Facility [facility]: [facility]12[facility]22 [facility] Start: 03-12-2022 End: 04-20-2022 Alcohol intake Current drinker of alcohol (finding) [facility] Start: 03-12-2022 Alcohol Comment very rarely. [facility] Start: 1955 Sex Assigned At Not on file C [facility] Start: 03-02-2022 End: 03-23-2022 Exposure to SARS-CoV-2 (event) Not sure [facility] Start: 03-23-2022 Tobacco smoking stat us NHIS Ex-smoker [facility] History of tobacco use Current smoker [facility] History of tobacco use Cigarette Smoker C [facility] Start: 03-23-2022 Tobacco use and exposure Smoke less tobacco non-user [facility] Progress note 04-20-2022 Note Date & Type Note Facility 04-20-2022 Note HNO ID: [id number] Author: Priya Blount, DO Service: ? Author Type: Physician Type: Progress Notes Filed: 04/20/2022 10:55 AM Note Text: SUBJECTIVE: 66 year old female for annual routine pap and checkup. I have fully reviewed the past medical, surgical, social and family history and updated the Histories section of [facility]. She has a history of anemia Her fecal occult blood test was negative She is taking iron once a day, rather than twice. Her Hb has been improving over the past month She had a total hysterectomy, no longer needs pap tests. She eats a healthy diet, and is going to start riding her indoor [employer] bicycle regularly. She does not use tobacco [...] diet of 1000 mg/day for under 50, 6622-8804 mg/day for 50+ 2. Other iron deficiency [...] to bring res (more content not included)... [facility] History of Present illness Narrative 04-20-2022 Priya Blount, DO - 04/20/2022 10:33 AM EST Note Date & Type Note Facility 04-20-2022 History of Presen t illness Narrative SUBJECTIVE: 66 year old female for annual routine pap and checkup. I have fully reviewed the past medical, surgical, social and family history and updated the Histories section of [facility]. She has a history of anemia Her fecal occult blood test was negative She is taking iron once a day, rather than twice. Her Hb has been improving over the past month She had a total hysterectomy, no longer needs pap tests. She eats a healthy diet, and is going to start riding her indoor [employer] bicycle regularly. She does not use tobacco [...] diet of 1000 mg/day for under 50, 4805-1748 mg/day for 50+ 2. Other iron deficiency [...] Pt no longer needs pap tests Priya Bloutn DO documented in this encounter [facility] Progress note 03-23-2022 Note Date & Type Note Facility 03-23-2022 Note HNO ID: [id number] Author: Priya C Sheets, DO Service: ? Author Type: Physician Type: Progress Notes Filed: 03/23/2022 3:07 PM Note Text: Subjective HPI Pt is here for acute visit after hospitalization. She does not plan on establishing with this office. She would like to establish with primary care at [facility] in [place]. She injured her back at work, was seen in the ED on 03/12/22 She was hospitalized at [facility] from 03/12 to 03/13 for an incidental [...] normal. Cognition and (more content not included)... [facility] History of Present illness Narrative 03-23-2022 Priya Blount DO - 03/23/2022 2:42 PM EST Note Date & Type Note Facility 03-23-2022 History of Presen t illness Narrative Subjective HPI Pt is here for acute visit after hospitalization. She does not plan on establishing with this office. She would like to establish with primary care at [facility] in [place]. 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 2. Elevated blood pressure reading without diagnosis of hypertension - ICD9: 796.2, ICD10: R03.0 - Encouraged dietary sodium restriction/DASH diet - Recommended regular aerobic exercise. - Recommend home blood pressure monitoring, to bring results in on next visit - Goal of BP <130/80 Priya Blount DO documented in this encounter [facility] Plan of care note 03-13-2022 Note Date & Type Note Facility 03-13-2022 Note HNO ID: [id number] Author: Lizzette Su APRN.HUY Service: Hospital Medicine Author Type: Nurse Practitioner Type: Plan of Care Filed: 03/13/2022 12:20 PM Note Text: Department of Hospital Medicine [place] [phone] Re: Ana Jones March 13, 2022 To Whom It May Concern, Ana Jones was admitted to the hospital for medical reasons from 03/12/2022 to 03/13/2022 and hence unable to attend work. She may return to work with no restriction on 03/16/2022. Please do not hesitate to contact me with any questions. Sincerely, Lizzette Su APRN.[employer] [facility] Note 03-12-2022 Telephone Encounter - Amaris Crawford MD - 03/12/2022 10:03 AM EST Note Date & Type Note Facility 03-12-2022 Miscellaneous Notes Formattin g of this note might be different from the original. RQB note error documented in this encounter [facility] Evaluation note Note Date & Type Note Facility Evaluation note Diagnosis Other iron deficiency anemia- Primary Elevated blood pressure reading without diagnosis of hypertension documented in this encounter [facility] Evaluation note Note Date & Type Note Facility Evaluation note Diagnosis Well adult exam- Primary Routine general medical examination at a health care facility Other iron deficiency anemias Elevated blood pressure reading without diagnosis of hypertension GERD without esophagitis Esophageal reflux Status post hysterectomy Acquired absence of both cervix and uterus documented in this encounter [facility] Summary Purpose Family History No Family History [...] or prosecute any alcohol or drug abuse patient.[facility] the event this information is protected by the Federal Confidentiality of Alcohol and Drug Abuse Patient Records regulations: The Federal rules restrict any use of the information to criminally investigate or prosecute any alcohol or drug abuse patient.[facility] the event this information is protected by the Federal Confidentiality of Alcohol and Drug Abuse Patient Records regulations: The Federal rules restrict any use of the information to criminally investigate or prosecute any alcohol or drug abuse patient.[facility] Reason for Visit (unrecogniz ed section and content) Reason Comments Reason Comments New Patient Not establishing car e previous pcp was in [place] but 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 Was recently diagnosed with anemia and had a blood transfusion Reason Comments review blood work and medications Care Teams (unrecognized sec tion and content) Stack Supervisor Relationship Specialty Start Date End Date Pcp, Loren PCP - General 11/15/21 06/02/22 Stack Supervisor Relationship Specialty Start Date End Date Priya Blount DO [address] [place], [place] [phone] PCP - General Family Medicine 03/23/22 Stack Supervisor Relationship Specialty Start Date End Date Priya Blount DO [address] [place] [address] PCP - General Family Medicine 03/23/22 INFORMATION SOURCE (unrecogn ized section and content) DATE CREATED AUTHOR 03/13/2022 [facility] DATE CREATED AUTHOR AUTHOR'S JAMIN ATION 05/05/2022 [facility] FOR RECORDS PERTAINING TO PATIENTS WHO [...] BE BASED ON THE PRIMARY CLINICAL RECORDS. [employer] [facility]. provides no warranty or guarantee of the accuracy or completeness of information in this document.
--- OUTSIDE RECORDS SUMMARY | 2024-03-22 04:52 | XMS RPT_ITS | CCD ---
Author Organization [facility] Care Team Providers Care Net Software Architect Name Role Phone Pcp, No Primary Care [...] Test Name Value Interpretation Reference Range Facility [facility] 04-20-2022 CNOV Office Visit (AGFAMP JOAN) ANA JONES ([id number]) 1955 F Date Time Provider Department 04/20/22 [...] history and [facility]. She has a history of anemia Her fecal occult blood test was negative She is taking iron once a day, rather than twice. Her Hb has been improving over the past month She had a total hysterectomy, no longer needs pap tests. She eats a healthy diet, and is going to start riding her indoor [employer] bicycle regularly. She does not use tobacco [...] diet of 1000 mg/day for under 50, 5980-3010 mg/day for 50+ 2. Other iron deficiency anemias - ICD9: 280.8, ICD10: D50.8 - ASCORBIC ACID (VITAMIN C) 500 MG TABLET (more content not included)... Normal [facility] HEMOGLOBIN (HGB)on Hemoglobin (Bld) [Mass/Vol] 13.0 g/dL 11.5 - 15.5 g/dL [facility] Hgb Bld-ncon 04-20-2022 Hemoglobin (Bld) [Mass/Vol] 13.0 g/dL Normal 11.5-15.5 [facility] Comment on above: Order Comment: Speci men Type: BLOOD SPECIMEN Ordering Facility: [facility] Address: [address] [place] [phone] Performed By: #### 7 18-7 #### [facility] CLIA [id number] [address] [place] [address] [place] CNOVon 03-23-2022 CNOV Office Visit (SHELLY FRANCO) ANA JONES ([id number]) 1955 F Date Time Provider Department 03/23/22 [...] like to establish with primary care at [facility] in [place]. She injured her back at work, was seen in the ED on 03/12/22 She was hospitalized at [facility] from 03/12 to 03/13 for [...] Motor fu (more content not included)... Normal [facility] HEMOGLOBIN (HGB)on Hemoglobin (Bld) [Mass/Vol] 10.9 g/dL Low 11.5 - 15.5 g/dL [facility] Hgb Bld-mCncon 03-23-2022 Hemoglobin (Bld) [Mass/Vol] 10.9 g/dL Low 11.5-15.5 [facility] Comment on above: Order Comment: Speci men Type: BLOOD SPECIMEN Ordering Facility: [facility] Address: [address] [place] [address] Performed By: #### 7 18-7 #### [facility] CLIA [id number] [address] [place] [address] [place] Basic metabolic 2000 panelon 03-13-2022 Anion gap [Moles/Vol] 7 mmol/L Low 9-18 [facility] Comment on above: Order Comment: Speci men Type: BLOOD SPECIMEN Ordering Facility: [facility] Address: [address] [address] Performed By: #### 7 18-7 #### [facility] CLIA [id number] [address] [place] [address] [place] Calcium [Mass/Vol] 8.7 mg/dL Normal 8.5-10.2 [facility] Comment on above: Order Comment: Speci men Type: BLOOD SPECIMEN Ordering Facility: [facility] Address: [address] [address] Performed By: #### 7 18-7 #### [facility] CLIA [id number] [address] [place] [address] [place] Chloride [Moles/Vol] 107 mmol/L High 97-105 [facility] Comment on above: Order Comment: Speci men Type: BLOOD SPECIMEN Ordering Facility: [facility] Address: [address] [address] Performed By: #### 7 18-7 #### [facility] CLIA [id number] [address] [place] [address] [place] CO2 [Moles/Vol] 24 mmol/L Normal 22-30 [facility] Comment on above: Order Comment: Rudy waddell Type: BLOOD SPECIMEN Ordering Facility: [facility] Address: [address] [place] [address] Performed By: #### 7 18-7 #### [facility] CLIA [id number] [address] [place] Creatinine [Mass/Vol] 0.67 mg/dL Normal 0.58-0.96 [facility] Comment on above: Order Comment: Rudy waddell Type: BLOOD SPECIMEN Ordering Facility: [facility] Address: [address] [place] [address] Performed By: #### 7 18-7 #### [facility] CLIA [id number] [address] [place] [address] ESTIMATED GLOMERULAR FILTRATION RATE 97 mL/min/1.73m??? Normal >=60 [facility] Comment on above: Order Comment: Rudy waddell Type: BLOOD SPECIMEN Ordering Facility: [facility] Address: [address] [place] [address] Result Comment: Kavita mated Glomerular Filtration Rate [...] GFR. Performed By: #### 7 18-7 #### [facility] CLIA [id number] [address] [place] [address] OF [facility] Glucose [Mass/Vol] 91 mg/dL Normal 74-99 [facility] Comment on above: Order Comment: Rudy waddell Type: BLOOD SPECIMEN Ordering Facility: [facility] Address: [address] [place] [address] Result Comment: The [place] Diabetes [employer] (ADA) provides guidance for cutoff [...] Standards of Medical Care in Diabetes 2016, [place] [employer]. Diabetes Care. 2016.39(Suppl 1). Performed By: #### 7 18-7 #### [facility] CLIA [id number] [address] [place] [address] [place] Potassium [Moles/Vol] 4.4 mmol/L Normal 3.7-5.1 [facility] Comment on above: Order Comment: Speci men Type: BLOOD SPECIMEN Ordering Facility: [facility] Address: [address] [address] Performed By: #### 7 18-7 #### [facility] CLIA [id number] [address] [place] [address] [place] Sodium [Moles/Vol] 138 mmol/L Normal 136-144 [facility] Comment on above: Order Comment: Speci men Type: BLOOD SPECIMEN Ordering Facility: [facility] Address: [address] [address] Performed By: #### 7 18-7 #### [facility] CLIA [id number] [address] [place] [address] [place] Urea nitrogen [Mass/Vol] 17 mg/dL Normal 7-21 [facility] Comment on above: Order Comment: Speci men Type: BLOOD SPECIMEN Ordering Facility: [facility] Address: [address] [address] Performed By: #### 7 18-7 #### [facility] CLIA [id number] [address] [place] CBC panel Auto (Bld)on 03-13 Erythrocyte distribution width (RBC) [Ratio] 16.4 % High 11.5-15.0 [facility] Comment on above: Order Comment: Speci men Type: BLOOD SPECIMEN Ordering Facility: [facility] Address: [address] [place] [address] Performed By: #### 7 18-7 #### [facility] CLIA [id number] [address] [place] [address] Hematocrit (Bld) [Volume fraction] 26.3 % Low 36.0-46.0 [facility] Comment on above: Order Comment: Speci men Type: BLOOD SPECIMEN Ordering Facility: [facility] Address: [address] [place] [address] Performed By: #### 7 18-7 #### [facility] CLIA [id number] [address] [place] [address] Hemoglobin (Bld) [Mass/Vol] 8.1 g/dL Low 11.5-15.5 [facility] Comment on above: Order Comment: Speci men Type: BLOOD SPECIMEN Ordering Facility: [facility] Address: [address] [place] [address] Performed By: #### 7 18-7 #### [facility] CLIA [id number] [address] [place] [address] [place] MCH (RBC) [Entitic mass] 24.8 pg Low 26.0-34.0 [facility] Comment on above: Order Comment: Speci men Type: BLOOD SPECIMEN Ordering Facility: [facility] Address: [address] [place] [address] Performed By: #### 7 18-7 #### [facility] CLIA [id number] [address] [place] [address] [place] MCHC (RBC) [Mass/Vol] 30.8 g/dL Normal 30.5-36.0 [facility] Comment on above: Order Comment: Speci men Type: BLOOD SPECIMEN Ordering Facility: [facility] Address: [address] [place] [address] Performed By: #### 7 18-7 #### [facility] CLIA [id number] [address] [place] [address] [place] MCV (RBC) [Entitic vol] 80.4 fL Normal 80.0-100.0 [facility] Comment on above: Order Comment: Speci men Type: BLOOD SPECIMEN Ordering Facility: [facility] Address: [address] [place] [address] Performed By: #### 7 18-7 #### [facility] CLIA [id number] [address] [place] [address] [place] Platelet mean volume (Bld) [Entitic vol] 10.6 fL Normal 9.0-12.7 [facility] Comment on above: Order Comment: Speci men Type: BLOOD SPECIMEN Ordering Facility: [facility] Address: [address] [place] [address] Performed By: #### 7 18-7 #### [facility] CLIA [id number] [address] [place] [address] [place] Platelets (Bld) [#/Vol] 206 10*3/uL Normal 150-400 [facility] Comment on above: Order Comment: Speci men Type: BLOOD SPECIMEN Ordering Facility: [facility] Address: [address] [place] [address] Performed By: #### 7 18-7 #### [facility] CLIA [id number] [address] [place] [address] [place] RBC (Bld) [#/Vol] 3.27 10*6/uL Low 3.90-5.20 [facility] Comment on above: Order Comment: Speci men Type: BLOOD SPECIMEN Ordering Facility: [facility] Address: [address] [place] [address] Performed By: #### 7 18-7 #### [facility] CLIA [id number] [address] [place] [address] [facility] [place] WBC (Bld) [#/Vol] 3.64 10*3/uL Low 3.70-11.00 [facility] Comment on above: Order Comment: Rudy waddell Type: BLOOD SPECIMEN Ordering Facility: [facility] Address: [address] [place] [address] [place] [address] Performed By: #### 7 18-7 #### [facility] CLIA [id number] [address] [place] [address] [facility] CNDSon 03-13-2022 CNDS HNO ID: [id number] Author: Lizzette Su APRN.CIRCULATION ANALYST Service: Hospital Medicine Author Type: Nurse Practitioner Type: Discharge Summary Filed: 03/13/2022 12:24 PM Note Text: Attestation signed by Melvin Cardenas MD at 05/05/2022 3:19 PM Attending Note I have personally reviewed the SAM note and have discussed the management of this patient with the SAM. Other additions or changes: As edited Signature: Melvin Cardenas MD, [facility] Date: March 12, 2022 Time: 7:19 PM [...] for back pain, anemia. You presented to [facility] for back pain which began at work [...] call for appointment?: Yes Priya Blount DO [phone] [place] [address] PCP Requested Referral Additional Provider to Provider Information: You presented to [facility] for back pain which began at work [...] will also (more content not included)... Normal [facility] Hemoccult Stl Ql IAon 2021 Lower GI hemoglobin IA Ql (Stl) Negative Normal Negative [facility] Comment on above: Order Comment: Speci men Type: STOOL SPECIMEN Ordering Facility: [facility] Address: [address] [place] [phone] Performed By: #### 2 9771-3 #### [facility] CLIA [id number] [address] [place], [place] [id number] [place] US DVT LOWER [...] imaged segments of the right lower extremity. [employer] Coating: PSCB Transcribe Date/Time: Mar 13 2022 12:39P Dictated by : TERRENCE YOUNG MD This examination was interpreted and the report reviewed and electronically signed by: TERRENCE YOUNG MD on Mar 13 2022 12:40PM EST [id number] Normal [facility] ALLIED HEALTHon 03-12-2022 ALLIED HEALTH HNO ID: [id number] Author: RT Lory(R) Service: ? Author Type: Building Rigger Type: Allied Health Filed: 03/12/2022 8:23 AM [...] March 12, 2022 TIME: 8:22 AM Normal [facility] Basic metabolic 2000 panelon 03-12-2022 Anion gap [Moles/Vol] 9 mmol/L Normal 9-18 [facility] Comment on above: Order Comment: Speci men Type: URINE SPECIMEN Ordering Facility: [facility] Address: [address] [place] [address] Performed By: #### L [id number] #### [facility] CLIA [id number] [address] [place] [address] [place] Calcium [Mass/Vol] 8.9 mg/dL Normal 8.5-10.2 [facility] Comment on above: Order Comment: Speci men Type: URINE SPECIMEN Ordering Facility: [facility] Address: [address] [place] [address] Performed By: #### L [id number] #### [facility] CLIA [id number] [address] [place] [address] [place] Chloride [Moles/Vol] 101 mmol/L Normal 97-105 [facility] Comment on above: Order Comment: Speci men Type: URINE SPECIMEN Ordering Facility: [facility] Address: [address] [place] [address] Performed By: #### L [id number] #### [facility] CLIA [id number] [address] [place] [address] [place] CO2 [Moles/Vol] 24 mmol/L Normal 22-30 [facility] Comment on above: Order Comment: Speci men Type: URINE SPECIMEN Ordering Facility: [facility] Address: [address] [place] [address] Performed By: #### L [id number] #### [facility] CLIA [id number] [address] [place] [address] [place] Creatinine [Mass/Vol] 0.68 mg/dL Normal 0.58-0.96 [facility] Comment on above: Order Comment: Speci men Type: URINE SPECIMEN Ordering Facility: [facility] Address: [address] [place] [address] Performed By: #### L [id number] #### [facility] CLIA [id number] [address] [place] [address] ESTIMATED GLOMERULAR FILTRATION RATE 97 mL/min/1.73m??? Normal >=60 [facility] Comment on above: Order Comment: Speci men Type: URINE SPECIMEN Ordering Facility: [facility] Address: [address] [place] [address] Result Comment: Kavita mated Glomerular Filtration Rate [...] reflect actual GFR. Performed By: #### L [id number] #### [facility] CLIA [id number] [address] [place] [address] [place] Glucose [Mass/Vol] 96 mg/dL Normal 74-99 [facility] Comment on above: Order Comment: Speci men Type: URINE SPECIMEN Ordering Facility: [facility] Address: [address] [place] [address] Result Comment: The [place] Diabetes [employer] (ADA) provides guidance for cutoff [...] Standards of Medical Care in Diabetes 2016, [place] [employer]. Diabetes Care. 2016.39(Suppl 1). Performed By: #### L [id number] #### [facility] CLIA [id number] [address] [place] [address] [place] Potassium [Moles/Vol] 3.9 mmol/L Normal 3.7-5.1 [facility] Comment on above: Order Comment: Speci men Type: URINE SPECIMEN Ordering Facility: [facility] Address: [address] [place] [address] Performed By: #### L [id number] #### [facility] CLIA [id number] [address] [place] [address] [place] Sodium [Moles/Vol] 134 mmol/L Low 136-144 [facility] Comment on above: Order Comment: Speci men Type: URINE SPECIMEN Ordering Facility: [facility] Address: [address] [place] [address] Performed By: #### L [id number] #### [facility] CLIA [id number] [address] [place] [address] [place] Urea nitrogen [Mass/Vol] 28 mg/dL High 7-21 [facility] Comment on above: Order Comment: Speci men Type: URINE SPECIMEN Ordering Facility: [facility] Address: [address] [address] Performed By: #### L [id number] #### [facility] CLIA [id number] [address] [place] [address] STATES [facility] CBC W Auto Differential pane l (Bld)on 03-12-2022 Basophils (Bld) [#/Vol] 0.05 10*3/uL Normal <0.11 [facility] Comment on above: Order Comment: Speci men Type: BLOOD SPECIMEN Ordering Facility: [facility] Address: [address] [place] [address] Performed By: #### 5 7021-8 #### [facility] CLIA [id number] [address] [place] [address] Basophils/100 WBC (Bld) 1.2 % Normal [facility] Comment on above: Order Comment: Speci men Type: BLOOD SPECIMEN Ordering Facility: [facility] Address: [address] [place] [address] Performed By: #### 5 7021-8 #### [facility] CLIA [id number] [address] [place] [address] Differential cell count method Nom (Bld) Auto Normal [facility] Comment on above: Order Comment: Speci men Type: BLOOD SPECIMEN Ordering Facility: [facility] Address: [address] [place] [address] Performed By: #### 5 7021-8 #### [facility] CLIA [id number] [address] [place] [address] [place] Eosinophils (Bld) [#/Vol] 0.09 10*3/uL Normal <0.46 [facility] Comment on above: Order Comment: Speci men Type: BLOOD SPECIMEN Ordering Facility: [facility] Address: [address] [place] [address] Performed By: #### 5 7021-8 #### [facility] CLIA [id number] [address] [place] [address] Eosinophils/100 WBC (Bld) 2.1 % Normal [facility] Comment on above: Order Comment: Speci men Type: BLOOD SPECIMEN Ordering Facility: [facility] Address: [address] [place] [address] Performed By: #### 5 7021-8 #### [facility] CLIA [id number] [address] [place] Erythrocyte distribution width (RBC) [Ratio] 15.7 % High 11.5-15.0 [facility] Comment on above: Order Comment: Speci men Type: BLOOD SPECIMEN Ordering Facility: [facility] Address: [address] [place] [address] Performed By: #### 5 7021-8 #### [facility] CLIA [id number] [address] [place] [address] [place] Hematocrit (Bld) [Volume fraction] 21.5 % Low 36.0-46.0 [facility] Comment on above: Order Comment: Speci men Type: BLOOD SPECIMEN Ordering Facility: [facility] Address: [address] [place] [address] Performed By: #### 5 7021-8 #### [facility] CLIA [id number] [address] [place] [address] [place] Hemoglobin (Bld) [Mass/Vol] 6.5 g/dL Low 11.5-15.5 [facility] Comment on above: Order Comment: Speci men Type: BLOOD SPECIMEN Ordering Facility: [facility] Address: [address] [place] [address] Performed By: #### 5 7021-8 #### [facility] CLIA [id number] [address] [place] Lymphocytes (Bld) [#/Vol] 0.80 10*3/uL Low 1.00-4.00 [facility] Comment on above: Order Comment: Speci men Type: BLOOD SPECIMEN Ordering Facility: [facility] Address: [address] [place] [address] Performed By: #### 5 7021-8 #### [facility] CLIA [id number] [address] [place] [address] Lymphocytes/100 WBC (Bld) 18.6 % Normal [facility] Comment on above: Order Comment: Speci men Type: BLOOD SPECIMEN Ordering Facility: [facility] Address: [address] [place] [address] Performed By: #### 5 7021-8 #### [facility] CLIA [id number] [address] STATES OF [facility] MCH (RBC) [Entitic mass] 24.1 pg Low 26.0-34.0 [facility] Comment on above: Order Comment: Speci men Type: BLOOD SPECIMEN Ordering Facility: [facility] Address: [address] [place] [address] Performed By: #### 5 7021-8 #### [facility] CLIA [id number] [address] [place] [address] MCHC (RBC) [Mass/Vol] 30.2 g/dL Low 30.5-36.0 [facility] Comment on above: Order Comment: Speci men Type: BLOOD SPECIMEN Ordering Facility: [facility] Address: [address] [place] [address] Performed By: #### 5 7021-8 #### [facility] CLIA [id number] [address] [place] [address] STATES [facility] MCV (RBC) [Entitic vol] 79.6 fL Low 80.0-100.0 [facility] Comment on above: Order Comment: Speci men Type: BLOOD SPECIMEN Ordering Facility: [facility] Address: [address] [place] [address] Performed By: #### 5 7021-8 #### [facility] CLIA [id number] [address] [place] [address] Monocytes (Bld) [#/Vol] 0.44 10*3/uL Normal <0.87 [facility] Comment on above: Order Comment: Speci men Type: BLOOD SPECIMEN Ordering Facility: [facility] Address: [address] [place] [address] Performed By: #### 5 7021-8 #### [facility] CLIA [id number] [address] [place], [place] [id number] [place] [address] [place] Monocytes/100 WBC (Bld) 10.3 % Normal [facility] Comment on above: Order Comment: Speci men Type: BLOOD SPECIMEN Ordering Facility: [facility] Address: [address] [place] [address] Performed By: #### 5 7021-8 #### [facility] CLIA [id number] [address] [place] [address] [place] Neutrophils (Bld) [#/Vol] 2.91 10*3/uL Normal 1.45-7.50 [facility] Comment on above: Order Comment: Speci men Type: BLOOD SPECIMEN Ordering Facility: [facility] Address: [address] [place] [address] Performed By: #### 5 7021-8 #### [facility] CLIA [id number] [address] [place] Neutrophils/100 WBC (Bld) 67.8 % Normal [facility] Comment on above: Order Comment: Speci men Type: BLOOD SPECIMEN Ordering Facility: [facility] Address: [address] [place] [address] Performed By: #### 5 7021-8 #### [facility] CLIA [id number] [address] [place] [id number] [place] Platelet mean volume (Bld) [Entitic vol] 10.9 fL Normal 9.0-12.7 [facility] Comment on above: Order Comment: Speci men Type: BLOOD SPECIMEN Ordering Facility: [facility] Address: [address] [place] [address] Performed By: #### 5 7021-8 #### [facility] CLIA [id number] [address] Platelets (Bld) [#/Vol] 216 10*3/uL Normal 150-400 [facility] Comment on above: Order Comment: Rudy waddell Type: BLOOD SPECIMEN Ordering Facility: [facility] Address: [address] [place] [address] Performed By: #### 5 7021-8 #### [facility] CLIA [id number] [address] RBC (Bld) [#/Vol] 2.70 10*6/uL Low 3.90-5.20 [facility] Comment on above: Order Comment: Rudy waddell Type: BLOOD SPECIMEN Ordering Facility: [facility] Address: [address] [place] [address] Performed By: #### 5 7021-8 #### [facility] CLIA [id number] [address] WBC (Bld) [#/Vol] 4.29 10*3/uL Normal 3.70-11.00 [facility] [facility] Comment on above: Order Comment: Rudy waddell Type: BLOOD SPECIMEN Ordering Facility: [facility] Address: [address] [place] [address] Performed By: #### 5 7021-8 #### [facility] CLIA [id number] [address] Maged 03-12-2022 HUYN Telephone (COLEMAN) ANA JONES ([id number]) 1955 F Date Time Provider Department 03/12/22 AMARIS CRAWFORD During your visit today, we recorded the following information about you: Amaris Crawford MD 03/12/2022 10:05 AM Signed RQB note error Allergies As of Date: 03/12/2022 (No Known Allergies) Date Reviewed: 03/12/2022 Reviewed by: Rafal Sommers MD - Fully Assessed Reason for Visit: Hospital To Hospital [[id number]] Facility-Administered Medications as of 03/12/2022 - iv contrast (radiology procedure) Problem List As Of Date: 03/12/2022 (None) Encounter Status:Closed by AMARIS CRAWFORD on 03/12/[address] [facility] [address] ABD/PEL W IVCONon 022 CT ABD/PEL [...] Tissues: No significant finding. Lower thorax: Unremarkable. Motorman/Woman (topogram) images: No additional findings. IMPRESSION: No evidence of acute process in the abdomen and pelvis. Roofer Vinyl Coating: PSCB Transcribe Date/Time: Mar 12 2022 9:08A Dictated by : YUDY OLIVO MD This examination was interpreted and the report reviewed and electronically signed by: YUDY OLIVO MD on Mar 12 2022 9:18AM EST [id number] [facility] ED NOTEon 03-12-2022 ED NOTE HNO ID: [id number] Author: Patricia Arriola RN Service: Nursing Author Type: Registered Nurse Type: ED Notes Filed: 03/12/2022 12:44 PM Note Text: Patient informed: the name of medication, why we are giving it, possible side effects, what they may expect to feel, and was offered a chance to ask questions, prior to the administration of Toradol [facility] ED NOTE HNO ID: [id number] Author: Angela Masters RN Service: Emergency Medicine Author Type: Registered Nurse Type: ED Notes Filed: 03/12/2022 10:03 AM Note Text: Call to [facility] to check if they would have a bed available- they do not have a bed [facility] ED NOTE HNO ID: [id number] Author: Patricia Arriola RN Service: Nursing Author Type: Registered Nurse Type: ED Notes Filed: 03/12/2022 10:00 AM Note Text: Transfer line called, there is a bed open at [place], pt does not want to go there. She asked for us to contact [facility] since that is close to her home, I will inform Angela Steen RN of pt request. [facility] ED NOTE HNO ID: [id number] Author: Angela Masters RN Service: Emergency Medicine Author Type: Registered Nurse Type: ED Notes Filed: 03/12/2022 9:46 AM Note Text: Call from [facility] transfer line, [facility] is full now- asking if we want pt on wait list. They will checked with [facility], they are also full. Informed [facility] transfer line we would like pt to stay on [place] [facility]. Paged hospitalist for [facility] also. [facility] ED NOTE HNO ID: [id number] Author: Carlo Youngblood RN Service: Emergency Medicine Author Type: Registered Nurse Type: ED Notes Filed: 03/12/2022 7:26 AM Note Text: Change of shift report given to Patricia Delgado RN. Transfer of patient care given to Patricia Delgado RN. [facility] ED NOTE HNO ID: [id number] Author: Patricia Arriola RN Service: Nursing Author Type: Registered Nurse Type: ED Notes Filed: 03/12/2022 7:25 AM Note Text: Patient informed: the name of medication, why we are giving it, possible side effects, what they may expect to feel, and was offered a chance to ask questions, prior to the administration of Toradol [facility] ED NOTE HNO ID: [id number] Author: Patricia Arriola RN Service: Nursing Author Type: Registered Nurse Type: ED Notes Filed: 03/12/2022 7:24 AM Note Text: Report from SOCORRO Matos [facility] ED NOTE HNO ID: [id number] Author: Carlo Youngblood RN Service: Emergency Medicine Author Type: Registered Nurse Type: ED Notes Filed: 03/12/2022 6:56 AM Note Text: 66 y/o female presenting to the ED via [facility] with complaint of severe lower [...] access prior to arrival to the ED. [facility] ED PROV NOTEon 03-12-2022 ED PROV NOTE HNO ID: [id number] Author: Rafal Sommers MD Service: Emergency Medicine [...] MD Rafal Silver MD 03/12/22 1106 Normal [facility] Ferritin SerPl-mCncon 2021 Ferritin [Mass/Vol] 7.2 ng/mL Low 14.7-205.1 [facility] Comment on above: Order Comment: Speci men Type: URINE SPECIMEN Ordering Facility: [facility] Address: [place] [address] Performed By: #### L [id number] #### [facility] CLIA [id number] [address] [place] [address] [place] Folate SerPl-mCncon 11-10-20 22 Folate [Mass/Vol] 7.6 ng/mL Normal >4.7 [facility] Comment on above: Order Comment: Speci men Type: BLOOD SPECIMEN Ordering Facility: [facility] Address: [place] [address] Performed By: #### 7 18-7 #### [facility] CLIA [id number] [address] [place] [address] [place] HISTORY PHYSICALon HISTORY PHYSICAL HNO ID: [id number] Author: Isacc Eagle PA-C Service: Hospital Medicine Author Type: Physician Mines Safety Engineer Type: HANDP Filed: 03/12/2022 3:45 PM Note Text: Attestation signed by Melvin Cardenas MD at 05/05/2022 3:18 PM Attending Note I have personally reviewed the SAM note and have discussed the management of this patient with the SAM. Other additions or changes: As edited Signature: Melvin Cardenas MD, [facility] Date: March 12, 2022 Time: 7:18 PM DEPARTMENT OF HOSPITAL MEDICINE HISTORY AND PHYSICAL EXAM SERVICE DATE: 03/12/2022 Code Status: Not on file SERVICE TIME: 3:31 PM Primary Care Physician: No Pcp NIGHT AND WEEKEND COVERAGE: [facility] Medicine Coverage Subjective CHIEF COMPLAINT: [...] symptoms. Patient was subsequently admitted to the [facility] Medicine service for further evaluation and management. Initially patient was to be transferred, but she refused transfer to [place] and no other open beds. PAST MEDICAL [...] and GI (more content not included)... Normal [facility] Iron and Iron binding capaci ty panelon 03-12-2022 Iron [Mass/Vol] 12 ug/dL Low 41-186 [facility] Comment on above: Order Comment: Rudy waddell Type: BLOOD SPECIMEN Ordering Facility: [facility] Address: [address] [address] Performed By: #### 7 18-7 #### [facility] CLIA [id number] [address] [place] [address] [place] Iron binding capacity [Mass/Vol] 387 ug/dL High 232-386 [facility] Comment on above: Order Comment: Rudy waddell Type: BLOOD SPECIMEN Ordering Facility: [facility] Address: [address] [address] Performed By: #### 7 18-7 #### [facility] CLIA [id number] [address] [place] [address] [facility] Iron saturation [Mass fraction] 3.1 % Low 15.0-57.0 [facility] Comment on above: Order Comment: Speci men Type: BLOOD SPECIMEN Ordering Facility: [facility] Address: [address] [place], [place] [phone] Performed By: #### 7 18-7 #### [facility] CLIA [id number] [address] [place] [address] [facility] NURSING PROGon 03-12-2022 NURSING PROG HNO ID: [id number] Author: Ivelisse Galvan RN Service: Nursing Author [...] contact) to receive information. Ivelisse Galvan RN [facility] SARS-CoV-2 RNA Resp Ql ELIESER+p robeon 03-12-2022 SARS-CoV-2 (COVID-19) RNA ELIESER+probe Ql (Resp) COVID 19 RESULT: SARS-CoV-2 (Agent of COVID-19) Not Detected by RT-PCR or equivalent method. This test has been authorized by FDA under an Emergency Use Authorization (EUA). Normal [facility] Comment on above: Performed By: #### 9 4500-6 ####[facility] [id number] [place] [address] [facility] TYPE + SCREENon 03-12-2022 ABO O [facility] Comment on above: Order Comment: Speci men Type: BLOOD SPECIMEN Ordering Facility: [facility] Address: [address] [id number] Performed By: #### T SCR #### [facility] CLIA [id number] [address] HISTORICAL AB SCR STATUS Negative Normal [facility] Comment on above: Order Comment: Speci men Type: BLOOD SPECIMEN Ordering Facility: [facility] Address: [address] [address] Performed By: #### T SCR #### [facility] CLIA [id number] [address] Rh Nom (Bld) Positive Normal [facility] Comment on above: Order Comment: Speci men Type: BLOOD SPECIMEN Ordering Facility: [facility] Address: [address] [place] [address] Performed By: #### T SCR #### [facility] CLIA [id number] [address] TYPE AND SCREEN EXPIRATION 03/15/2022 23:59 Normal [facility] Comment on above: Order Comment: Speci men Type: BLOOD SPECIMEN Ordering Facility: [facility] Address: [address] [address] Performed By: #### T SCR #### [facility] CLIA [id number] [address] URINALYSIS, REFLEX MICROSCOP ICon 03-12-2022 Bilirubin Ql (U) Negative Normal Negative [facility] Comment on above: Order Comment: Speci men Type: URINE SPECIMEN Ordering Facility: [facility] Address: [address] [address] Performed By: #### L [id number] #### [facility] CLIA [id number] [address] [place] [address] Clarity (Unsp spec) Clear Normal Clear [facility] Comment on above: Order Comment: Speci men Type: URINE SPECIMEN Ordering Facility: [facility] Address: [address] [address] Performed By: #### L [id number] #### [facility] CLIA [id number] [address] [place] [address] [facility] [place] Color (U) Yellow Normal Yellow [facility] Comment on above: Order Comment: Speci men Type: URINE SPECIMEN Ordering Facility: [facility] Address: [address] [place] [address] Performed By: #### L [id number] #### [facility] CLIA [id number] [address] [id number] [facility] [place] Epithelial cells LM.HPF (Urine sed) [#/Area] Few Normal [facility] Comment on above: Order Comment: Speci men Type: URINE SPECIMEN Ordering Facility: [facility] Address: [address] [place] [address] Performed By: #### L [id number] #### [facility] CLIA [id number] [address] [place] [address] Glucose Test strip (U) [Mass/Vol] Negative Normal Negative [facility] Comment on above: Order Comment: Speci men Type: URINE SPECIMEN Ordering Facility: [facility] Address: [address] [place] [address] Performed By: #### L [id number] #### [facility] CLIA [id number] [address] [place] [address] [place] Hemoglobin Ql (U) Trace Abnormal Negative [facility] Comment on above: Order Comment: Speci men Type: URINE SPECIMEN Ordering Facility: [facility] Address: [address] [place] [address] Performed By: #### L [id number] #### [facility] CLIA [id number] [address] [place] [address] [place] Ketones Ql (U) Negative Normal Negative [facility] Comment on above: Order Comment: Speci men Type: URINE SPECIMEN Ordering Facility: [facility] Address: [address] [place] [address] Performed By: #### L [id number] #### [facility] CLIA [id number] [address] [place] [address] [facility] Leukocyte esterase Test strip Ql (U) Negative Normal Negative [facility] Comment on above: Order Comment: Speci men Type: URINE SPECIMEN Ordering Facility: [facility] Address: [address] [place] [address] Performed By: #### L [id number] #### [facility] CLIA [id number] [address] [place], [place] [address] [place] [address] [place] Nitrite Ql (U) Negative Normal Negative [facility] Comment on above: Order Comment: Speci men Type: URINE SPECIMEN Ordering Facility: [facility] Address: [address] [place] [address] Performed By: #### L [id number] #### [facility] CLIA [id number] [address] [place] pH (U) 7.0 [pH] Normal 5.0-8.0 [facility] Comment on above: Order Comment: Speci men Type: URINE SPECIMEN Ordering Facility: [facility] Address: [address] [place] [address] Performed By: #### L [id number] #### [facility] CLIA [id number] [address] Protein (U) [Mass/Vol] Negative Normal Negative [facility] Comment on above: Order Comment: Speci men Type: URINE SPECIMEN Ordering Facility: [facility] Address: [address] [place] [address] Performed By: #### L [id number] #### [facility] CLIA [id number] [address] RBC LM.HPF (Urine sed) [#/Area] 0-3 /HPF Normal 0-3 /HPF [facility] Comment on above: Order Comment: Speci men Type: URINE SPECIMEN Ordering Facility: [facility] Address: [address] [place] [address] Performed By: #### L [id number] #### [facility] CLIA [id number] [address] [place] [address] STATES [facility] Specific gravity (U) [Rel density] 1.020 Normal 1.005-1.030 [facility] Comment on above: Order Comment: Speci men Type: URINE SPECIMEN Ordering Facility: [facility] Address: [address] [place] [address] Performed By: #### L [id number] #### [facility] CLIA [id number] [address] [place] [address] Urobilinogen Ql (U) 0.2 EU/dL Normal 0.2-1.0 EU/dL [facility] Comment on above: Order Comment: Speci men Type: URINE SPECIMEN Ordering Facility: [facility] Address: [address] [place] [address] Performed By: #### L [id number] #### [facility] CLIA [id number] [address] [place] [address] WBC LM.HPF (Urine sed) [#/Area] 0-5 /HPF Normal 0-5 /HPF [facility] Comment on above: Order Comment: Speci men Type: URINE SPECIMEN Ordering Facility: [facility] Address: [address] [place] [address] Performed By: #### L [id number] #### [facility] CLIA [id number] [address] [place] [address] [place] Vit B12 SerPl-ncon 022 Cobalamin (Vitamin B12) [Mass/Vol] 627 pg/mL Normal 232-1245 [facility] Comment on above: Order Comment: Speci men Type: BLOOD SPECIMEN Ordering Facility: [facility] Address: [address] [place] [address] Performed By: #### 7 18-7 #### [facility] CLIA [id number] [address] [place] [address] [place] XR RIB/CHST 3V AP [...] No evidence of a left rib fracture. 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[employer] Coating: SHAWNA Transcribe Date/Time: Mar 12 2022 9:19A Dictated by : YUDY OLIVO MD This examination was interpreted and the report reviewed and electronically signed by: YUDY OLIVO MD on Mar 12 2022 9:21AM EST [id number] Normal [facility] Vital Signs Date Time Vital Sign Value Performing Clinician Meg arechiga 04-20-2022 10:43-0500 Diastolic blood pressure 84 mm[Hg] Priya Sheets DO Work Phone: [facility] 04-20-2022 10:43-0500 Systolic blood pressure 136 mm[Hg] Priya Sheets DO Work Phone: [facility] 04-20-2022 10:30-0500 Body height 160.7 cm Priya Sheets DO Work Phone: [facility] 04-20-2022 10:30-0500 Body temperature 97.59 [degF] Priya Sheets DO Work Phone: [facility] 04-20-2022 10:30-0500 Body weight 67.59 kg Priya Sheets DO Work Phone: [facility] 04-20-2022 10:30-0500 Heart rate 61 /min Priya Sheets DO Work Phone: [facility] 04-20-2022 10:30-0500 Respiratory rate 16 /min Priya Sheets DO Work Phone: [facility] 04-20-2022 10:30-0500 SaO2% (BldA) [Mass fraction] 100 % Priya Sheets DO Work Phone: [facility] 03-23-2022 15:00-0500 Diastolic blood pressure 90 mm[Hg] Priya Sheets DO Work Phone: [facility] 03-23-2022 15:00-0500 Systolic blood pressure 130 mm[Hg] Priya Sheets DO Work Phone: [facility] 03-23-2022 14:34-0500 Body height 160.7 cm Priya Sheets DO Work Phone: [facility] 03-23-2022 14:34-0500 Body temperature 98.4 [degF] Priya Sheets DO Work Phone: [facility] 03-23-2022 14:34-0500 Body weight 66.13 kg Priya Sheets DO Work Phone: [facility] 03-23-2022 14:34-0500 Heart rate 79 /min Priya Sheets DO Work Phone: [facility] 03-23-2022 14:34-0500 Respiratory rate 16 /min Priya Sheets DO Work Phone: [facility] 03-23-2022 14:34-0500 SaO2% (BldA) [Mass fraction] 99 % Priya Sheets DO Work Phone: [facility] Encounters Encounter Date Encounter Type Care Provider Facility Start: 04-20-2022 End: 04-21-2022 ambulatory PRIYA C SHEETS Facility:[facility] Start: 04-20-2022 Encounter for genera l adult medical examination without abnormal findings PRIYA C SHEETS [facility] Start: 04-20-2022 End: 04-20-2022 Patient encounter procedure Priya C Sheets DO Work Phone: [facility] Comment on above: Well adult exam (Aide lizy Dx); Other iron deficiency anemias; Elevated blood pressure reading without diagnosis of hypertension; GERD without esophagitis; Status post hysterectomy Start: 04-20-2022 End: 04-20-2022 Patient encounter status Priya Blount DO Work Phone: [facility] Start: 03-23-2022 End: 03-24-2022 ambulatory PRIYA BLOUNT Facility:[facility] Start: 03-23-2022 End: 03-23-2022 Patient encounter procedure Priya Foley Sheets DO Work Phone: [facility] Comment on above: Other iron deficienc y anemia (Primary Dx); Elevated blood pressure reading without diagnosis of hypertension Start: 03-12-2022 Telephone encounter Amaris Crawford MD Work Phone: [place] [facility] Comment on above: [facility] Start: 03-12-2022 End: 03-13-2022 ambulatory [facility] Facility:[facility] Procedures Date Procedure Procedure Detail Performing Clinician Start: 03-12-2022 Antibody screen CATAL[facility] BLOUNT Comment on above: Order Comment: Speci men Type: BLOOD SPECIMEN Ordering Facility: [facility] Address: [address] [place], [place] [id number] Performed By: #### T SCR #### [facility] [place] [id number] [address] [place] [address] [place] H/O: hysterectomy Status post hysterectomy Priya Foley Sheets DO Work Phone: Plan of Treatment Date Care Activity Detail Author Start: 03-13-2025 DIABETES SCREEN DIABETES SCREEN [facility] Start: 03-12-2025 DIABETES SCREEN DIABETES SCREEN [facility] Start: 04-20-2023 LIPID SCREEN LIPID SCREEN [facility] Comment on above: Postponed from 04/22 (Declined at this time) Start: 04-20-2023 Mammography MAMMOGRAM [facility] Comment on above: Postponed from 04/22 (Declined at this time) Start: 03-23-2023 COVID-19 VACCINE (5 - Booster for Moderna series) COVID-19 VACCINE (5 - Booster for Moderna series) [facility] Comment on above: Postponed from 12/13 (Declined at this time) Start: 03-23-2023 PNEUMOCOCCAL: 65+ (1 - PCV) PNEUMOCOCCAL: 65+ (1 - PCV) [facility] Comment on above: Postponed from 04/22 (Declined at this time) Start: 03-23-2023 SHINGRIX VACCINE (1 of 2) SHINGRIX V ACCINE (1 of 2) [facility] Comment on above: Postponed from 04/22 (Declined at this time) Start: 03-23-2023 Urine microalbumin profile DTAP,TDAP,TD (1 - Tdap) [facility] Comment on above: Postponed from 04/22 (Declined at this time) Start: 03-13-2023 COLORECTAL CANCER SCREENING COLORECTAL CANCER SCREENING [facility] Start: 03-13-2023 FECAL OCCULT BLOOD FECAL OCCULT BLOO D [facility] Start: 10-30-2022 Influenza vaccination INFLUENZA (#1) [facility] Comment on above: Postponed from 01/01 (Declined at this time) Start: 01-01-2022 Influenza vaccination INFLUENZA (#1) [facility] Start: 05-03-2021 ADVANCE DIRECTIVE DISCUSSION ADVANCE DIRECTIVE DISCUSSION [facility] Start: 05-03-2021 DEPRESSION ASSESSMENT DEPRESSION ASS ESSMENT [facility] Start: 2021 BONE DENSITY BONE DENSITY [facility] Start: 2021 PNEUMOCOCCAL: 65+ (1 - PCV) PNEUMOCOCCAL: 65+ (1 - PCV) [facility] Start: 2006 SHINGRIX VACCINE (1 of 2) SHINGRIX V ACCINE (1 of 2) [facility] Start: 2001 COLOGUARD (FIT-DNA) COLOGUARD (FIT-D NA) [facility] Start: 2001 Colonoscopy COLONOSCOPY [facility] Start: 2001 COLORECTAL CANCER SCREENING COLORECTAL CANCER SCREENING [facility] Start: [address] COLONOGRAPHY [facility] Start: 2001 FECAL OCCULT BLOOD FECAL OCCULT BLOO D [facility] Start: 2001 LIPID SCREEN LIPID SCREEN [facility] Start: 2001 SIGMOIDOSCOPY SIGMOIDOSCOPY [facility] Start: 1996 Mammography MAMMOGRAM [facility] Start: 1975 Urine microalbumin profile DTAP,TDAP,TD (1 - Tdap) [facility] Start: 1974 HEPATITIS C SCREENING HEPATITIS C SC REENING [facility] Start: 1974 HIV SCREENING HIV SCREENING [facility] Start: 1955 COVID-19 VACCINE (#1) COVID-19 VACCI NE (#1) [facility] Immunizations Immunization Date Immunization Notes Care Provider Fa cility 10-18-2021 COVID-19 original vaccine, booster dose, monovalent (MODERNA) Priya Sheets DO Work Phone: [facility] 06-07-2021 COVID-19 original vaccine, booster dose, monovalent (MODERNA) Priya Sheets DO Work Phone: [facility] 09-20-2020 COVID-19 original vaccine, full dose, monovalent (MODERNA) Priya Sheets DO Work Phone: [facility] 08-20-2020 COVID-19 original vaccine, full dose, monovalent (MODERNA) Priya Sheets DO Work Phone: [facility] Payers Date Payer Category Payer Unknown [facility] [id number] 2022-Present [phone] [place] [id number] 2021 Medicare [id number] 2016 Private Health Insurance [facility] [employer] CHOICE PLUS [id number] 2016-Present [phone] [address] [address] [place] [address] HMO [id number] 2016 Unknown [id number] Social History Date Type Detail Facility Start: [facility]12[facility]22 [facility] Start: 03-12-2022 End: 04-20-2022 Alcohol intake Current drinker of alcohol (finding) [facility] Start: 03-12-2022 Alcohol Comment very rarely. [facility] Start: 1955 Sex Assigned At Not on file [facility] Start: 03-02-2022 End: 03-23-2022 Exposure to SARS-CoV-2 (event) Not sure [facility] Start: 03-23-2022 Tobacco smoking stat us NHIS Ex-smoker [facility] History of tobacco use Current smoker [facility] History of tobacco use Cigarette Smoker C [facility] Start: 03-23-2022 Tobacco use and exposure Smoke less tobacco non-user [facility] Progress note 04-20-2022 Note Date & Type Note Facility 04-20-2022 Note HNO ID: [id number] Author: Priya Blount, DO Service: ? Author Type: Physician Type: Progress Notes Filed: 04/20/2022 10:55 AM Note Text: SUBJECTIVE: 66 year old female for annual routine pap and checkup. I have fully reviewed the past medical, surgical, social and family history and updated the Histories section of [facility]. She has a history of anemia Her fecal occult blood test was negative She is taking iron once a day, rather than twice. Her Hb has been improving over the past month She had a total hysterectomy, no longer needs pap tests. She eats a healthy diet, and is going to start riding her indoor [employer] bicycle regularly. She does not use tobacco [...] diet of 1000 mg/day for under 50, 0466-4411 mg/day for 50+ 2. Other iron deficiency [...] to bring res (more content not included)... [facility] History of Present illness Narrative 04-20-2022 Priya Blount, DO - 04/20/2022 10:33 AM EST Note Date & Type Note Facility 04-20-2022 History of Presen t illness Narrative SUBJECTIVE: 66 year old female for annual routine pap and checkup. I have fully reviewed the past medical, surgical, social and family history and updated the Histories section of [facility]. She has a history of anemia Her fecal occult blood test was negative She is taking iron once a day, rather than twice. Her Hb has been improving over the past month She had a total hysterectomy, no longer needs pap tests. She eats a healthy diet, and is going to start riding her indoor [employer] bicycle regularly. She does not use tobacco [...] diet of 1000 mg/day for under 50, 7239-0474 mg/day for 50+ 2. Other iron deficiency [...] Priya Blount DO documented in this encounter [facility] Progress note 03-23-2022 Note Date & Type Note Facility 03-23-2022 Note HNO ID: [id number] Author: Priya C Sheets, DO Service: ? Author Type: Physician Type: Progress Notes Filed: 03/23/2022 3:07 PM Note Text: Subjective HPI Pt is here for acute visit after hospitalization. She does not plan on establishing with this office. She would like to establish with primary care at [facility] in [place]. She injured her back at work, was seen in the ED on 03/12/22 She was hospitalized at [facility] from 03/12 to 03/13 for [...] normal. Cognition and (more content not included)... [facility] History of Present illness Narrative 03-23-2022 Priya Blount DO - 03/23/2022 2:42 PM EST Note Date & Type Note Facility 03-23-2022 History of Presen t illness Narrative Subjective HPI Pt is here for acute visit after hospitalization. She does not plan on establishing with this office. She would like to establish with primary care at [facility] in [place]. She injured her back at work, was seen in the ED on 03/12/22 She was hospitalized at [facility] from 03/12 to 03/13 for [...] GI related recommend pt be referred to compensation consulting manager. 2. Elevated blood pressure reading without diagnosis of hypertension - ICD9: 796.2, ICD10: R03.0 - Encouraged dietary sodium restriction/DASH diet - Recommended regular aerobic exercise. - Recommend home blood pressure monitoring, to bring results in on next visit - Goal of BP <130/80 Priya Blount DO documented in this encounter [facility] Plan of care note 03-13-2022 Note Date & Type Note Facility 03-13-2022 Note HNO ID: [id number] Author: Lizzette Su APRN.HUY Service: Hospital Medicine Author Type: Nurse Practitioner Type: Plan of Care Filed: 03/13/2022 12:20 PM Note Text: Department of Hospital Medicine [place] [phone] Re: Ana Jones March 13, 2022 To Whom It May Concern, Ana Jones was admitted to the hospital for medical reasons from 03/12/2022 to 03/13/2022 and hence unable to attend work. She may return to work with no restriction on 03/16/2022. Please do not hesitate to contact me with any questions. Sincerely, Lizzette Su APRN.CIRCULATION ANALYST [facility] Note 03-12-2022 Telephone Encounter - Amaris Crawford MD - 03/12/2022 10:03 AM EST Note Date & Type Note Facility 03-12-2022 Miscellaneous Notes Formattin g of this note might be different from the original. RQB note error documented in this encounter [facility] Evaluation note Note Date & Type Note Facility Evaluation note Diagnosis Other iron deficiency anemia- Primary Elevated blood pressure reading without diagnosis of hypertension documented in this encounter [facility] Evaluation note Note Date & Type Note Facility Evaluation note Diagnosis Well adult exam- Primary Routine general medical examination at a health care facility Other iron deficiency anemias Elevated blood pressure reading without diagnosis of hypertension GERD without esophagitis Esophageal reflux Status post hysterectomy Acquired absence of both cervix and uterus documented in this encounter [facility] Summary Purpose Family History No Family History [...] or prosecute any alcohol or drug abuse patient.[facility] the event this information is protected by the Federal Confidentiality of Alcohol and Drug Abuse Patient Records regulations: The Federal rules restrict any use of the information to criminally investigate or prosecute any alcohol or drug abuse patient.[facility] the event this information is protected by the Federal Confidentiality of Alcohol and Drug Abuse Patient Records regulations: The Federal rules restrict any use of the information to criminally investigate or prosecute any alcohol or drug abuse patient.[facility] Reason for Visit (unrecogniz ed section and content) Reason Comments Reason Comments New Patient Not establishing car e previous pcp was in [place] but 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 Was recently diagnosed with anemia and had a blood transfusion Reason Comments review blood work and medications Care Teams (unrecognized sec tion and content) Net Software [employer] Relationship Specialty Start Date End Date Pcp, Loren PCP - General 11/15/21 06/02/22 Net Software Architect Relationship Specialty Start Date End Date Priya Blount DO [address], [place] [phone] PCP - General Family Medicine 03/23/22 Net Software Architect Relationship Specialty Start Date End Date Priya Blount DO [address] [place] [address] PCP - General Family Medicine 03/23/22 INFORMATION SOURCE (unrecogn ized section and content) DATE CREATED AUTHOR 03/13/2022 [facility] DATE CREATED AUTHOR AUTHOR'S JAMIN ATION 05/05/2022 [facility] FOR RECORDS PERTAINING TO PATIENTS WHO ARE [...] BE BASED ON THE PRIMARY CLINICAL RECORDS. [employer] [facility]. provides no warranty or guarantee of the accuracy or completeness of information in this document.
--- NOTE | 2024-03-22 05:55 | ECHOD_ITS ---
Reason For Study: NSTEMI Procedure This was a 2D Doppler, Color Flow transthoracic echocardiogram. The study was technically difficult. Due to repiratory interference. Exam performed portable in patient room. Left Ventricle Normal LV size. Left ventricular systolic function is normal. The left ventricular ejection fraction is 55 %. No regional wall motion abnormalities noted. Right Ventricle Normal RV size. Normal systolic function. Atria Normal left atrium. Normal right atrium. Mitral Valve Bileaflet diffuse mitral valve thickening. Tricuspid Valve Normal tricuspid valve. Mild tricuspid valve insufficiency. Pulmonary artery systolic pressure is 21 mmHg. Aortic Valve Trisinus/trileaflet aortic valve. Pulmonic Valve Normal pulmonic valve. Great Vessels Mildly dilated aortic root. The pulmonary artery is normal size. Inferior vena cava collapse with respiration. Pericardium/Pleural No pericardial effusion. MMode/2D Measurements & Calculations LVIDd: 3.9 cm IVSd: 1.2 cm LVOT diam: 2.0 cm LVIDs: 2.6 cm LVPWd: 1.0 cm LVOT area: 3.2 cm2 RVDd: 3.4 cm FS: 33.4 % Ao root diam: 3.8 cm asc Aorta Diam: 3.9 cm LAV(MOD-bp): 61.7 ml LA dimension: 3.2 cm LAV(MOD-bp) Indexed: 35.4 ml/m2 LAV(MOD-sp2): 61.3 ml LAV(MOD-sp4): 55.9 ml SV(MOD-sp4): 36.3 ml LVAd ap4: 22.9 cm2 LVAd ap2: 23.9 cm2 LVLd ap4: 7.8 cm LVLd ap2: 8.1 cm SI(MOD-sp4): 20.8 ml/m2 EDV(MOD-sp4): 55.5 ml EDV(MOD-sp2): 58.3 ml EDV(sp4-el): 57.1 ml EDV(sp2-el): 60.2 ml LVAs ap4: 12.1 cm2 LVAs ap2: 12.1 cm2 LVLs ap4: 6.8 cm LVLs ap2: 6.5 cm ESV(MOD-sp4): 19.2 ml ESV(MOD-sp2): 19.9 ml ESV(sp4-el): 18.3 ml ESV(sp2-el): 19.2 ml EF(MOD-sp4): 65.5 % EF(MOD-sp2): 65.8 % EF(sp4-el): 67.8 % SV(MOD-sp2): 38.4 ml SV(sp4-el): 38.7 ml LA A4 area: 17.8 cm2 SI(MOD-sp2): 22.0 ml/m2 TAPSE: 1.7 cm Time Measurements MV dec time: 0.22 sec Doppler Measurements & Calculations MV E max yung: 76.4 cm/sec Lat Peak E' Yung: 10.4 cm/sec Med Peak E' Yung: 5.7 cm/sec MV A max yung: 75.1 cm/sec E/E' lat: 7.4 E/E' med: 13.3 MV E/A: 1.0 MV V2 max: 82.6 cm/sec MV P1/2t max yung: 80.3 cm/sec Ao V2 max: 109.0 cm/sec MV max P.7 mmHg MV P1/2t: 69.2 msec Ao max P.8 mmHg MV V2 mean: 52.9 cm/sec Ao V2 mean: 91.3 cm/sec MV mean P.2 mmHg MV dec slope: 340.1 cm/sec2 Ao mean P.5 mmHg MV V2 VTI: 22.0 cm MVA(P1/2t): 3.2 cm2 Ao V2 VTI: 26.3 cm AV (velocity ratio): 0.85 MVA(VTI): 3.3 cm2 CHRIS(I,D): 2.7 cm2 CHRIS(V,D): 2.7 cm2 LV V1 max: 92.2 cm/sec SV(LVOT): 72.0 ml PA V2 max: 54.7 cm/sec LV V1 max P.4 mmHg LV V1 mean P.1 mmHg LV V1 mean: 70.1 cm/sec LV V1 VTI: 22.3 cm PI end-d yung: 68.2 cm/sec TR max yung: 211.2 cm/sec TR max P.8 mmHg ECHO/Echo Complete Interpretation Summary Normal LV size. Left ventricular systolic function is normal. The left ventricular ejection fraction is 55 %. Mildly dilated aortic root. Ordering Physician: Collin Young Referring Physician: XIAO PCP Performed By: Renay Mcguire RVT, RDCS and Student
[2024-03-22] MEDS: Aspirin E.C. 81 MG Tablet PO (06:15)
--- NOTE | 2024-03-22 08:06 | CON.PCM.CA_ITS ---
Assessment & Plan Assessment/Plan (1) NSTEMI, initial episode of care: PLAN: She presents with chest discomfort and non-ST elevation myocardial infarction. I would recommend at this time that we proceed with a left heart catheterization. Risk benefits alternatives have been explained to her she understands and agrees to proceed. Thank you for allowing me to participate in her care. HPI Consult Data Date of Consult: 03/22/24 HPI Narrative HPI Narrative: KATE ALLISON, is a 68 F who presents emergency room with chest discomfort she describes this as a heaviness with a feeling going up her arm. She has had this a few times. She has had no dizziness or diaphoresis no near-syncope or syncope. She presented to the emergency room EKG was done which was unremarkable but cardiac enzymes were noted to be abnormal. Cardiology was called for further evaluation and management. She denies any history of hypertension or hyperlipidemia but she does have a history of anemia. COUNT INCLUDES [facility] Medical History Anemia Home Medications ?Medication ?Instructions ?Recorded ?Last Taken ?Type ferrous sulfate 325 mg (65 mg 325 mg PO BID 03/21/24 Unknown History iron) tablet Allergy/AdvReac Type Severity Reaction Status Date / Time No Known Allergies Allergy Verified 03/21/24 20:56 Social History Smoking Status: Former smoker ROS Constitutional Constitutional: Denies fever(s) or weight loss Eyes Eyes: Reports systems reviewed and no addt'l complaints, except as documented ENT HEENT: Reports systems reviewed and no addt'l complaints, except as documented Cardiovascular Cardiovascular: Reports chest pain at rest and chest pain with activity; Denies dyspnea at rest, dyspnea on exertion, edema, palpitations or paroxysmal nocturnal dyspnea Respiratory/Chest Respiratory/Chest: Denies dyspnea on exertion, productive cough, shortness of breath at rest or shortness of breath with exertion Gastrointestinal Gastrointestinal: Denies change in bowel habits, nausea, vomiting or weight changes Genitourinary Genitourinary: Denies difficulty urinating Musculoskeletal Musculoskeletal: Denies joint stiffness or muscle weakness Integumentary Integumentary: Denies lesions Neurologic Neurologic: Denies dizziness or syncope Psychiatric Psychiatric: Denies anxiety Endocrine Endocrinology: Denies excessive sweating or fatigue Hematologic/Lymphatic Hematologic/Lymphatic: Denies anemia Allergic/Immunologic Allergic/Immunologic: Denies seasonal rhinorrhea Physical Exam Const alert, oriented x3 and no apparent distress General Appearance: cooperative HEENT hearing grossly normal bilaterally Head and Scalp: atraumatic Eyes EOMs intact bilaterally Neck General: normal visual inspection Chest inspection of chest normal and palpation of chest normal Resp normal respiratory effort Auscultation: clear to auscultation bilaterally Cardio regular rate, regular rhythm, S1 normal heart sound and S2 normal heart sound Jugular Venous Distention: JVD GI normal to inspection, nondistended, normoactive bowel sounds Extremity normal capillary refill and no pedal edema Peripheral Pulses: Yes pulses 2+ throughout and femoral pulses present Skin no rashes or lesions noted Neuro oriented x3 and CN's II-XII intact bilaterally Psych Appearance: grossly normal and appropriate Risk Stratification Risk Stratification Applicable: Yes Age >/= 65: Yes >/= 3 CAD Risk Factors (HTN, HLD, DM, family hx of CAD, or current smoker): No Aspirin Use in the Past 7 Days: No Severe Angina (>/= episodes in 24 hours): No EKG ST Changes >/= 0.5mm: No Positive Cardiac Marker: Yes STACI Risk Stratification Score: 2 STACI % Risk: 8% Risk Objective Data Vital Signs: Vital Signs Temp Pulse Resp BP Pulse Ox O2 Del Method 98.3 F 70 14 144/83 H 93 Room Air 03/22/24 07:40 03/22/24 07:40 03/22/24 07:40 03/22/24 07:40 03/22/24 08:04 03/22/24 08:04 Oxygen Delivery Method Room Air Weight: 149 lb 4.047 oz Body Mass Index (BMI) 24.8 Lab / Micro Data 03/22/24 03:50 03/22/24 03:50 Labs: Laboratory Results - last 24 hr 03/21/24 21:12: WBC 5.7, RBC 4.85, Hgb 14.2, Hct 42.2, MCV 87.0, MCH 29.3, MCHC 33.6, RDW Std Deviation 41.5, RDW Coeff of Trevor 13.2, Plt Count 190, MPV 11.1, Immature Gran % (Auto) 0.400, Neut % (Auto) 76.0 H, Lymph % (Auto) 13.9 L, [place] % (Auto) 7.7, Eos % (Auto) 0.9, Baso % (Auto) 1.1 H, Absolute Neuts (auto) 4.3, Absolute Lymphs (auto) 0.79 L, Nucleated RBC % 0, Sodium 138, Potassium 3.8, Chloride 106, Carbon Dioxide 23.0, Anion Gap 9, BUN 24 H, Creatinine 0.86, Estim Creat Clear Calc 62.05, Est GFR (MDRD) Af Amer 85, Est GFR (MDRD) Non-Af 70, B UN/Creatinine Ratio 28.0 H, Glucose 139 H, Calcium 9.4, Troponin I High Sens 98 H 03/21/24 23:30: Troponin I High Sens 396 H* 03/22/24 03:50: WBC 5.2, RBC 4.39, Hgb 12.9, Hct 38.1, MCV 86.8, MCH 29.4, MCHC 33.9, RDW Std Deviation 41.5, RDW Coeff of Trevor 13.2, Plt Count 174, MPV 10.8, D- Dimer Quant (PE/DVT) 0.35, Sodium 138, Potassium 3.7, Chloride 108 H, Carbon Dioxide 26.0, Anion Gap 4 L, BUN 19 H, Creatinine 0.70, Estim Creat Clear Calc 61.40, Est GFR (MDRD) Af Amer 107, Est GFR (MDRD) Non-Af 89, BUN/Creatinine Ratio 27.1 H, Glucose 96, Calcium 8.6, Total Bilirubin 0.70, AST 26, ALT 24, Alkaline Phosphatase 66, Troponin I High Sens 941 H*, Total Protein 7.3, Albumin 3.6, Globulin 3.7, Albumin/Globulin Ratio 1.0, Triglycerides 45, Cholesterol 160, LDL Cholesterol 100, VLDL Cholesterol 9, HDL Cholesterol 51, TSH 1.390 Rhythm Strip Rhythm Strip: Sinus Tach Rate: 107 Ectopy: None Cardiology Labs/Tests 03/21/24 21:12: WBC 5.7, RBC 4.85, Hgb 14.2, Hct 42.2, MCV 87.0, MCH 29.3, MCHC 33.6, Plt Count 190, MPV 11.1, Immature Gran % (Auto) 0.400, Neut % (Auto) 76.0 H, Lymph % (Auto) 13.9 L, [place] % (Auto) 7.7, Eos % (Auto) 0.9, Baso % (Auto) 1.1 H, Absolute Neuts (auto) 4.3, Nucleated RBC % 0, Sodium 138, Potassium 3.8, Chloride 106, Carbon Dioxide 23.0, Anion Gap 9, BUN 24 H, Creatinine 0.86, Est GFR (MDRD) Af Amer 85, Est GFR (MDRD) Non-Af 70, BUN/Creatinine Ratio 28.0 H, G lucose 139 H, Calcium 9.4 03/22/24 03:50: WBC 5.2, RBC 4.39, Hgb 12.9, Hct 38.1, MCV 86.8, MCH 29.4, MCHC 33.9, Plt Count 174, MPV 10.8, D-Dimer Quant (PE/DVT) 0.35, Sodium 138, Potassium 3.7, Chloride 108 H, Carbon Dioxide 26.0, Anion Gap 4 L, BUN 19 H, Creatinine 0.70, Est GFR (MDRD) Af Amer 107, Est GFR (MDRD) Non-Af 89, B UN/Creatinine Ratio 27.1 H, Glucose 96, Calcium 8.6, Total Bilirubin 0.70, Triglycerides 45, Cholesterol 160, LDL Cholesterol 100, VLDL Cholesterol 9, HDL Cholesterol 51 Rhythm: EKG: ECHO: Stress Test: Cardiac Cath: PCI: CT Surgery: Holter monitor: EPS: PPM: CXR: Chest CT Scan: Radiography Diagnostic Testing: Radiology Impression Chest X-Ray 03/21/24 21:18 IMPRESSION: Normal x-ray examination of the chest. Electronically Signed: Tee Henry MD at 21:33 EST ,
--- NOTE | 2024-03-22 08:24 | PN.HOSP_ITS ---
Reason for Visit Reason for Visit: Diagnoses Chronic viral hepatitis C (03/22/24) Iron deficiency anemia, unspecified (03/22/24) Anemia, unspecified (03/22/24) Non-ST elevation (NSTEMI) myocardial infarction (03/22/24) Unspecified osteoarthritis, unspecified site (03/22/24) Chest pain, unspecified (03/22/24) Other specified abnormal findings of blood chemistry (03/22/24) Personal history of nicotine dependence (03/22/24) Subjective Subjective Feels well. No further chest pain. Objective Data Objective Data Vital Signs: Vital Signs Temp Pulse Resp BP Pulse Ox O2 Del Method 36.8 C 70 14 144/83 H 93 Room Air 03/22/24 07:40 03/22/24 07:40 03/22/24 07:40 03/22/24 07:40 03/22/24 08:04 03/22/24 08:04 Oxygen Delivery Method Room Air Weight: 67.7 kg Body Mass Index (BMI) 24.8 Lab / Micro Data 03/22/24 03:50 03/22/24 03:50 Labs: Laboratory Results - last 24 hr 03/21/24 21:12: WBC 5.7, RBC 4.85, Hgb 14.2, Hct 42.2, MCV 87.0, MCH 29.3, MCHC 33.6, RDW Std Deviation 41.5, RDW Coeff of Trevor 13.2, Plt Count 190, MPV 11.1, Immature Gran % (Auto) 0.400, Neut % (Auto) 76.0 H, Lymph % (Auto) 13.9 L, [place] % (Auto) 7.7, Eos % (Auto) 0.9, Baso % (Auto) 1.1 H, Absolute Neuts (auto) 4.3, Absolute Lymphs (auto) 0.79 L, Nucleated RBC % 0, Sodium 138, Potassium 3.8, Chloride 106, Carbon Dioxide 23.0, Anion Gap 9, BUN 24 H, Creatinine 0.86, Estim Creat Clear Calc 62.05, Est GFR (MDRD) Af Amer 85, Est GFR (MDRD) Non-Af 70, B UN/Creatinine Ratio 28.0 H, Glucose 139 H, Calcium 9.4, Troponin I High Sens 98 H 03/21/24 23:30: Troponin I High Sens 396 H* 03/22/24 03:50: WBC 5.2, RBC 4.39, Hgb 12.9, Hct 38.1, MCV 86.8, MCH 29.4, MCHC 33.9, RDW Std Deviation 41.5, RDW Coeff of Trevor 13.2, Plt Count 174, MPV 10.8, D- Dimer Quant (PE/DVT) 0.35, Sodium 138, Potassium 3.7, Chloride 108 H, Carbon Dioxide 26.0, Anion Gap 4 L, BUN 19 H, Creatinine 0.70, Estim Creat Clear Calc 61.40, Est GFR (MDRD) Af Amer 107, Est GFR (MDRD) Non-Af 89, BUN/Creatinine Ratio 27.1 H, Glucose 96, Calcium 8.6, Total Bilirubin 0.70, AST 26, ALT 24, Alkaline Phosphatase 66, Troponin I High Sens 941 H*, Total Protein 7.3, Albumin 3.6, Globulin 3.7, Albumin/Globulin Ratio 1.0, Triglycerides 45, Cholesterol 160, LDL Cholesterol 100, VLDL Cholesterol 9, HDL Cholesterol 51, TSH 1.390 Radiography Diagnostic Testing: Radiology Impression Chest X-Ray 03/21/24 21:18 IMPRESSION: Normal x-ray examination of the chest. Electronically Signed: Tee Henry MD at 21:33 EST Reading Location ID and State: [address] [place] [address] Tel , Service support , Rhythm Strip Rhythm Strip: Sinus Tach Rate: 107 Ectopy: None Physical Exam Const alert and no apparent distress HEENT head/scalp atraumatic and moist oral mucous membranes Resp normal respiratory effort, no retractions, no use of accessory muscles and clear to auscultation bilaterally Cardio regular rate, regular rhythm, S1 normal heart sound and S2 normal heart sound GI normal to inspection, nondistended, normoactive bowel sounds, soft to palpation, non-tender, non-distended and hepatosplenomegaly Extremity normal to inspection, full ROM and no clubbing, cyanosis or edema Neuro Sensorium / Orientation: awake and alert Assessment & Plan Assessment/Plan (1) NSTEMI, initial episode of care: (2) History of tobacco abuse: (3) Chronic hepatitis C: QUALIFIERS: Hepatic coma status: without hepatic coma Qualified Code(s): B18.2 - Chronic viral hepatitis C (4) Anemia: QUALIFIERS: Anemia type: iron deficiency Iron deficiency anemia type: unspecified iron deficiency Qualified Code(s): D50.9 - Iron deficiency anemia, unspecified (5) Osteoarthritis: QUALIFIERS: Osteoarthritis location: unspecified site O steoarthritis type: unspecified Qualified Code(s): M19.90 - Unspecified osteoarthritis, unspecified site PLAN: Plan NSTEMI * troponins 396 to 941. * meds: ASA, metoprolol tartrate, atorvastatin, ticagrelor. * pt had stent to PCI. * Echo pending. * DW Dr. Recio, if she remains stable overnight, she can be discharged in AM. VTE prophylaxis: not indicated as she is already anticoagulated. Charges/Coding Procedures Hospitalists Procedures: Other Procedure - See Report (Nonbillable rounding as patient was admitted after midnight.)
--- NOTE | 2024-03-22 09:16 | CASEMGMT ---
Insurance review for hospitals In-network with?[facility] insurance if transfer is recommended is as follows: [facility], [place], [facility], [place], [facility], [facility], [facility], [place], [facility] ([facility]), and . Fanny Dent, Discharge Planning Asst.
[2024-03-22] MEDS: Metoprolol Tartrate 25 MG Tablet 12.5 MG PO (10:16)
--- NOTE | 2024-03-22 10:50 | CASEMGMT ---
RN CM NOTE: RN CM to room to complete assessment. Pt out of room at this time. RN CM to complete assessment at a later time. Jesenia BSN RN CM
--- NOTE | 2024-03-22 12:15 | EKG12_ITS ---
Test Reason : POSTPCI Blood Pressure : */* mmHG Vent. Rate : 64 BPM Atrial Rate : 64 BPM P-R Int : 180 ms QRS Dur : 74 ms QT Int : 454 ms P-R-T Axes : 45 38 23 degrees QTcB Int : 468 ms Normal sinus rhythm Septal infarct , age undetermined Abnormal ECG When compared with ECG of 22-Mar-2024 01:31, MANUAL COMPARISON REQUIRED DATA IS UNCONFIRMED Confirmed by RENEE SINGH ([id number]), writer editor JOANNE RAYMOND ([id number]) on 03/24/2024 1:47:23 PM Referred By: PORTIA Confirmed By: RENEE SINGH
--- NOTE | 2024-03-22 12:29 | CL.I_ITS ---
Patient Name: KATE ALLISON Study Date: 03/22/2024 Performing: Andrews Tompkins MD Ht: 65 inches 165.1 cm : 1955 Wt: 149.4 lbs 67.7 kg Age: 68 Gender: female BSA: 1.75 PROCEDURE(S) PERFORMED IC12-(60491/C9600)MAURICIO W/WO PTCA, SINGLE CORONARY ARTERY CLINICAL PROFILE AND CO-MORBIDITIES Heart Failure: None CAD Presentations: Non-STEMI. CONCLUSIONS Successful MAURICIO to pLAD RECOMMENDATIONS DESCRIPTION OF PROCEDURE The patient arrived to the procedure lab. The risks and benefits of the procedure as well as a full description of our services here and current unavailability of surgical backup were fully explained to the patient and/or their significant other prior to the catheterization. The Timeout was completed, verifying the correct patient and procedure. The patient's procedural site was prepped and draped in the usual fashion. Local anesthetic was given subcutaneously to right radial region with Lidocaine 2% Using a modified Seldinger technique,arterial access was obtained via the right radial artery, a 6Fr sheath was inserted. Left Coronary Artery selective angiography was performed in multiple views using a 5 Fr. 4.0 [place] catheter. Right Coronary Artery selective angiography was then performed in multiple views using a 5 Fr. 4.0 [place] catheter. Left Ventriculography was performed in [place]DERON projection using a 5 Fr. Pigtail catheter. LV to AO pullback pressures were then recorded.The images were reviewed and options discussed. A decision was then made to proceed with an Intervention, IVUS or other adjunct procedure. XB 3.0 Guide catheter was inserted and engaged into the LCA. BMW Guide wire was advanced to the LAD. 4 x 12 Bailey Drug Eluting stent was advanced across the lesion in the LAD, proximal. Angiogram performed pre stent deployment. Angiogram performed post stent deployment. The arterial sheath was pulled and a TR Band was applied for hemostasis INTERVENTION INFORMATION LESION SITE: LAD (Proximal) chronic total occlusion: No, lesion at bifurcation: No, Lesion Complexity: Non-High/Non-C, thrombus present: No, lesion length: 10 mm, culprit lesion: Yes, In-stent restenosis: No, Previously treated lesion: No Pre Stenosis: 80 % Pre intervention STACI flow: 3 PROCEDURE: Drug Eluting Stent mLAD had moderate disease. The vessel was about 2mm in diameter in this location and also appears intra myocardial. We felt that this lesion is best treated medically at this time. Post Stenosis: 0 % Post intervention STACI flow: 3 Lesion Devices: Cordis 6 Fr XB3.0 100cm Guide Catheter Harris .014 190cm BMW [place] Straight Medtronic 4.0 x 12 FLIP FRONTIER MAURICIO COMPLICATIONS No Complications PROCEDURE MEDICATIONS Versed 1 mg IV Fentanyl 50 mcg IV Oxygen: 2 L/min via nasal cannula Brilinta 180 mg PO @ 03/22/2024 11:37:13 Heparin given IA 03/22/2024 10:56:58 Heparin 3000 unit(s) IV 03/22/2024 11:40:29 Verapamil 2.5mg, Ntg 100mcgs, 3000 units of Heparin given IA 03/22/2024 10:56:58 SUMMARY OF HEMODYNAMIC DATA Time AIR REST ECG 10:42:38 AO 176/86 (121) SA 11:24:51 LV 183/10, 19 11:31:36 LV 186/14, 19 11:31:42 LV 170/8, 19 11:32:36 LVp 182/12, 20 11:32:42 AOp 170/81 (114) 11:32:47 Signed By Andrews Tompkins MD On 03/22/2024 12:28:57 Andrews Tompkins MD
--- NOTE | 2024-03-22 14:00 | CASEMGMT ---
RN?CM?MANAGER CANCER?CM?to room to meet with patient for initial transition planning/care coordination?assessment.?RN?CM?introduced self and role at [facility].? Pt voices understanding and consents to?assessment?at this time.? Pt resting in bed in no distress at this time.? Pt is A/O at this time and answers all questions appropriately.?? Care providers, pharmacy, and demographics verified/updated at this time. PCP: No PCP. Pt provided w/local PCP directory and also list of providers in-network w/pt's insurance, that was prepared by dc children's nursery assistantFanny. Specialists: none Preferred Pharmacy: [facility] @ discharge. Insurance: [employer] AMBER, MCR A Prescription Benefit:?yes Living Will/HPOA:? Pt does not currently have LW/HCPOA and declines info at this time.? Pt made aware that she can contact as an out-pt and make appt in the future if she decides she would like to talk with someone about this or would like to utilize [facility] social work for advanced directive completion.? LNOK: 5 adult children. Daughter, Asuncion. Son, López Living Arrangements: Lives w/dtr, Asuncion, in 3-story home w/no steps to enter. Denies dificulty w/stairs. Independent w/ADL's and IADL's. Transportation:?Pt states drives self and states no transportation concerns at this time.?Son or daughter will take her home @ discharge. DME: ? Denies using any DME and denies needs.? HHC/SNF: No hx of either. No needs identified. Pt wishes to return home and states has no concerns with going home at time of discharge.? CM?to follow for any discharge planning/needs.? Pt voices no concerns/needs at this time.? Advised pt to ask for?CM?if any further questions/concerns/needs arise.? Voices understanding. PLAN:??Home Follow for anti-coag @ discharge. Jesenia MELENDEZN?RN?CM
--- NOTE | 2024-03-22 14:12 | CASEMGMT ---
Discharge Planning A list of PCP providers including quality and resource use data and consistent with the patient's preferred geographic region, medical needs, and insurance network was created from the [facility] website.? This list was provided to the patient. Fanny Dent, Discharge Planning Asst.
--- NOTE | 2024-03-22 14:43 | CRPHASE1_ITS ---
Patient Communication Patient Information PHII Cardiac Rehab Discussed with Patient:: Yes Guide to Cardiac Rehab Given to Patient:: Yes Cardiac Rehab Facility Choice List Given to Patient:: Yes Communication to Cardiac Rehab Choice Program [facility] CR PHII:: Communication Given to CR Refer Phase II Cardiac Rehab:: Yes Sessions:: 36 sessions - 3 days/wk, 12 weeks Cardiac Rehabilitation Info Program Information Cardiac Rehabilitation Program Information: Cardiac Rehab The cardiac rehab team at [facility] consists of highly skilled exercise physiologists, nurses, respiratory therapists and physicians working together with you. Our purpose is to help you have a full recovery and achieve the goals you set for yourself. Over the years many of our patients have returned to activities they assumed they would never do again! We can help restore your confidence and motivation to make lifestyle changes that can have a significant impact on your health and quality of life! We can help answer questions and concerns you may have about exercise, lifestyle, medications, diet, stress and anxiety which are common following a hospitalization. WE monitor ECG and vital signs during exercise and discuss your progress with you and report to your physician(s). Cardiac Rehab is proven to help reduce readmissions, improve functional capacity and lower recurrence of problems with your heart. Our Cardiac Rehab program is Certified by the [employer]-V[employer] Pulmonary [employer] (AACVPR) and Accredited by the [employer] through our [facility]. You can contact us at . We invite you to call us with your questions or to get started in our program. If you have other questions or concerns be sure to ask your physician/provider during your follow-up visit. WE look forward to seeing you!
--- NOTE | 2024-03-22 14:43 | CRPH1.INSTRU ---
General Education Discussed with Patient CAD and cardiac anatomy and function:: Patient communicates acknowledgment Explanation of diagnoses and procedures:: Patient communicates acknowledgment Sign/Symptoms of PA:: Patient communicates acknowledgment Antiplatelet therapy: Patient communicates acknowledgment Proper use of NTG-SL: Patient communicates acknowledgment Emergency procedures and activation of EMS: Patient communicates acknowledgment Compliance of all prescribed medications: Patient communicates acknowledgment Smoking Risk Factors Patient Nicotine/Smoking Risk Factors Are:: Non-smoker Recommendations Recommendations Include:: Previous smoker; encourage continued cessation Response Code Nicotine/Smoking Response Code:: Patient communicates acknowledgment Dyslipidemia Risk Factors Patient Dyslipidemia Risk Factors Are:: Total Cholesterol, Triglycerides, HDL and LDL Recommendations Recommendations Include:: Lipid profile not available, Reviewed NCEP/ATP guidelines and Therapeutic Lifestyle Change dietary guidelines Response Code Dyslipidemia Response Code:: Patient communicates acknowledgment Overweight/Obesity Risk Factors Patient Overweight/Obesity Risk Factors Are:: BMI Normal [24-29 & > 65 years old] Recommendations Recommendations Include:: Weight loss of 5-10%, Reduced calorie diet and Exercise 5-7 times/week Response Code Overweight/Obesity:: Patient communicates acknowledgment Hypertension Risk Factors Patient Hypertension Risk Factors Are:: No documented hx of HTN Diabetes Risk Factors Patient Diabetes Risk Factors Are:: No documented hx of diabetes Metabolic Syndrome Recommendations Recommendations Include:: Does not meet criteria Sedentary Risk Factors Patient Sedentary Risk Factors Are:: Lack of regular exercise Recommendations Recommendations Include:: Aerobic exercise 5-7 times/week for 20-30 minutes continuously, Benefits of regular exercise, Discussed home walking program and Monitored Outpatient Cardiac Rehab Response Code Sedentary Response Code:: Patient communicates acknowledgment Stress Recommendations Recommendations Include:: Identification of stressors, and assessment of coping skills and Stress management techniques Response Code Stress Response Code:: Patient communicates acknowledgment
[2024-03-22] MEDS: Ferrous Sulfate 325 MG Tablet PO (17:33)
[2024-03-22] MEDS: amLODIPine 5 MG Tablet PO (17:33)
--- NOTE | 2024-03-22 17:54 | CL.D_ITS ---
Patient Name: KATE ALLISON Study Date: 03/22/2024 Performing: Adiel Recio MD Ht: 65 inches 165.1 cm : 1955 Wt: 149.4 lbs 67.7 kg Age: 68 Gender: female BSA: 1.75 PROCEDURE(S) PERFORMED DC01-(72238)LHC/COR/LV IC12-(81410/C9600)MAURICIO W/WO PTCA, SINGLE CORONARY ARTERY CLINICAL PROFILE AND INDICATIONS Indications: Suspected CAD, New Onset Angina <= 2 months Heart Failure: None Stress/Imaging Stress/Image Study Performed: No CAD Presentations: Non-STEMI. Non-STEMI. Symptom onset Date/Time: 03/22/24 CONCLUSIONS Severe single vessel disease RECOMMENDATIONS Referred for immediate PCI DESCRIPTION OF PROCEDURE The patient arrived to the procedure lab. The risks and benefits of the procedure as well as a full description of our services here and current unavailability of surgical backup were fully explained to the patient and/or their significant other prior to the catheterization. The Timeout was completed, verifying the correct patient and procedure. The patient's procedural site was prepped and draped in the usual fashion. Local anesthetic was given subcutaneously to right radial region with Lidocaine 2%. Using a modified Seldinger technique, arterial access was obtained via the right radial artery, a 6Fr sheath was inserted. Left Coronary Artery selective angiography was performed in multiple views using a 5 Fr. 4.0 [place] catheter. Right Coronary Artery selective angiography was then performed in multiple views using a 5 Fr. 4.0 [place] catheter. Left Ventriculography was performed in CALDERON projection using a 5 Fr. Pigtail catheter. LV to AO pullback pressures were then recorded.The arterial sheath was pulled and a TR Band was applied for hemostasis CORONARY ANGIOGRAPHY DOMINANCE: Right Dominant LEFT HEART ASSESSMENT Left Ventricular Ejection Fraction: by LV Gram 65 % Normal LV wall motion Normal Left Ventricular systolic function LEFT MAIN: Angiographically normal LEFT ANTERIOR DESCENDING ARTERY: PROX LAD: 80 % Stenosis MID LAD: myocardial bridging CIRCUMFLEX ARTERY: Angiographically normal RIGHT CORONARY ARTERY: No significant disease noted COMPLICATIONS No Complications PROCEDURE MEDICATIONS Versed 1 mg IV Fentanyl 50 mcg IV Oxygen: 2 L/min via nasal cannula Brilinta 180 mg PO @ 03/22/2024 11:37:13 Heparin given IA 03/22/2024 10:56:58 Heparin 3000 unit(s) IV 03/22/2024 11:40:29 Verapamil 2.5mg, Ntg 100mcgs, 3000 units of Heparin given IA 03/22/2024 10:56:58 SUMMARY OF HEMODYNAMIC DATA Time AIR REST ECG 10:42:38 AO 176/86 (121) SA 11:24:51 LV 183/10, 19 11:31:36 LV 186/14, 19 11:31:42 LV 170/8, 19 11:32:36 LVp 182/12, 20 11:32:42 AOp 170/81 (114) 11:32:47 Signed By Adiel Recio MD On 03/22/2024 17:53:29 Adiel Recio MD
[2024-03-22] MEDS: Metoprolol Tartrate 25 MG Tablet PO (22:47)
[2024-03-22] MEDS: TICAGRELOR 90 MG TABLET PO (22:48)
[2024-03-22] MEDS: Atorvastatin Calcium 40 MG Tablet PO (22:48)
[2024-03-23 04:00] VITALS: BP 140/86; PULSE 67; RESP 16; TEMP 36.8; O2SAT 97
[2024-03-23 04:37] VITALS: BP 140/86; PULSE 67; RESP 16; TEMP 36.8; O2SAT 97
[2024-03-23] MEDS: Enoxaparin 80 MG/0.8 ML Syringe 70 MG SC (05:43)
[2024-03-23 06:47] LABS: Hematocrit 40.4 % (37-47); Hemoglobin 13.4 g/dL (12.0-15.0); Mean Corp Hgb Conc 33.2 g/dL (32-36); Mean Corpuscular Hgb 28.8 pg (27.0-32.0); Mean Corpuscular Volume 86.7 fL (81-99); Platelet Count 185 K/mm3 (150-450); RBC Distribution Width CV 13.2 % (11.6-14.6); RBC Distribution Width SD 41.1 fl (35.1-43.9); Red Blood Count 4.66 M/mm3 (4.2-5.4); White Blood Count 5.2 K/mm3 (4.4-11.0)
[2024-03-23 07:59] VITALS: O2SAT 96
[2024-03-23 08:16] LABS: AST(SGOT) 30 U/L (15-37); Alanine Aminotransfer ALT/SGPT 19 U/L (13-56); Albumin, Serum 3.7 g/dL (3.2-5.0); Alkaline Phosphatase 61 U/L (45-117); Anion Gap 7 (5-15); BUN 14 mg/dL (7-18); BUN/Creat Ratio 21.6 RATIO (10-20); Chloride 107 mmol/L (98-107); Creatinine, Serum 0.65 mg/dL (0.55-1.02); EST Glomerular Filtration Rate 97 mL/min (>60); Est Glom Filt Rate - Afr Amer 117 mL/min (>60); Globulin 3.8 g/dL (2.2-4.2); Glucose 85 mg/dL (74-106); Potassium 3.7 mmol/L (3.5-5.1); Protein, Total 7.5 g/dL (6.4-8.2); Sodium Level 136 mmol/L (136-145)
--- NOTE | 2024-03-23 10:00 | EKG12_ITS ---
Test Reason : AM EKG Blood Pressure : */* mmHG Vent. Rate : 65 BPM Atrial Rate : 65 BPM P-R Int : 170 ms QRS Dur : 82 ms QT Int : 458 ms P-R-T Axes : 50 27 51 degrees QTcB Int : 476 ms Normal sinus rhythm Normal ECG When compared with ECG of 22-Mar-2024 12:49, MANUAL COMPARISON REQUIRED DATA IS UNCONFIRMED Confirmed by RENEE SINGH ([id number]), television news video editor JOANNE RAYMOND ([id number]) on 03/24/2024 1:47:48 PM Referred By: BECKHAM Confirmed By: RENEE SINGH
[2024-03-23 10:18] VITALS: BP 133/90; PULSE 72; RESP 16; TEMP 37; O2SAT 98
[2024-03-23] MEDS: Aspirin E.C. 81 MG Tablet PO (10:25)
[2024-03-23 10:26] VITALS: BP 133/90; PULSE 72
[2024-03-23] MEDS: Ferrous Sulfate 325 MG Tablet PO (10:26)
[2024-03-23] MEDS: Metoprolol Tartrate 25 MG Tablet PO (10:26)
[2024-03-23] MEDS: TICAGRELOR 90 MG TABLET PO (10:26)
--- NOTE | 2024-03-23 11:14 | DS.PCM_ITS ---
Providers Date of Admission: 03/22/24 Primary Care Physician: Loren Primary Care Phys Consultations 03/22/24 00:54 Consult: Cardiology Routine Consulting Provider: [facility] Reason for Consult: Chest Pain EMERGENT Consult: No MD Notified: Yes Date Notified: 03/22/24 Time Notified: 00:23 Method of Notification: ED Physician Initiated Method of Consult:: In-Person Reason For Visit: CHEST PAIN WITH ELEVATED TROPONIN CONSISTENT WITH Diagnosis Discharge Diagnosis (1) NSTEMI, initial episode of care: Status: Acute Code(s): I21.4 - Non-ST elevation (NSTEMI) myocardial infarction (2) History of tobacco abuse: Status: Acute Code(s): Z87.891 - Personal history of nicotine dependence (3) Chronic hepatitis C: Status: Chronic Code(s): B18.2 - Chronic viral hepatitis C Qualifiers: Hepatic coma status: without hepatic coma Qualified Code(s): B18.2 - Chronic viral hepatitis C (4) Anemia: Status: Acute Code(s): D64.9 - Anemia, unspecified Qualifiers: Anemia type: iron deficiency Iron deficiency anemia type: unspecified iron deficiency Qualified Code(s): D50.9 - Iron deficiency anemia, unspecified (5) Osteoarthritis: Status: Acute Code(s): M19.90 - Unspecified osteoarthritis, unspecified site Qualifiers: Osteoarthritis location: unspecified site Osteoarthritis type: u nspecified Qualified Code(s): M19.90 - Unspecified osteoarthritis, unspecified site Plan NSTEMI * troponins 396 to 941. * meds: ASA, metoprolol tartrate, atorvastatin, ticagrelor. Advised of the risks of in-stent stenosis if she does not take her DAPT as directed. * pt had stent to PCI. * Echo shows an EF 55%. * Follow up with cardiology as outpt. VTE prophylaxis: not indicated as she is already anticoagulated. Medications at Discharge Home Medications ferrous sulfate 325 mg (65 mg iron) tablet 325 mg PO BID 03/21/24 aspirin 81 mg tablet,delayed release 81 mg PO BREAKFAST #0 tabs 03/23/24 atorvastatin 40 mg tablet 40 mg PO QHS #30 tabs 03/23/24 lisinopril 10 mg tablet 10 mg PO DAILY #30 tabs 03/23/24 metoprolol tartrate 25 mg tablet 25 mg PO BID #60 tabs 03/23/24 ticagrelor 90 mg tablet (Brilinta) 90 mg PO BID #60 tabs 03/23/24 Hospital Course Operations None Procedures 2-D Echocardiogram and Cardiac catheterization Summary of Care Provided Minutes Spent on Discharge: 32 Hospital Course: Patient presents with chest pain and was found to have a non-ST ovation myocardial infarction. Patient received a stent to her LAD, proximal. Patient tolerated procedure well. Patient was monitored overnight had no further events the patient be discharged home in stable condition. Weight / BMI Weight Weight: 67.7 kg Body Mass Index (BMI) 24.8 ABG / Lab / Microbiology Data 03/23/24 06:18 03/23/24 06:18 Laboratory: Laboratory Results - last 24 hr 03/23/24 06:18: WBC 5.2, RBC 4.66, Hgb 13.4, Hct 40.4, MCV 86.7, MCH 28.8, MCHC 33.2, RDW Std Deviation 41.1, RDW Coeff of Trevor 13.2, Plt Count 185, MPV 11.0, Sodium 136, Potassium 3.7, Chloride 107, Carbon Dioxide 22.0, Anion Gap 7, BUN 14, Creatinine 0.65, Estim Creat Clear Calc 61.40, Est GFR (MDRD) Af Amer 117, Est GFR (MDRD) Non-Af 97, BUN/Creatinine Ratio 21.6 H, Glucose 85, Calcium 9.0, Total Bilirubin 1.00, AST 30, ALT 19, Alkaline Phosphatase 61, Total Protein 7.5, Albumin 3.7, Globulin 3.8, Albumin/Globulin Ratio 1.0 Radiography Diagnostic Testing: Radiology Impression Echocardiogram 03/22/24 05:55 Interpretation Summary Normal LV size. Left ventricular systolic function is normal. The left ventricular ejection fraction is 55 %. Mildly dilated aortic root. Ordering Physician: Collin Young Referring Physician: NO PCP Performed By: Renay Mcguire RVT, RDCS and Student D/C Instructions Discharge Diet: Low fat / Low cholesterol DC O2, CPAP, BIPAP Needs Additional Home O2 Discharge instructions: No DC home with Oxygen: No Meaningful Use Info Meaningful Use Meaningful Use Diagnoses (Choose all that apply): AMI AMI/Post PCI/Angioplasty Aspirin given w/in 24hrs of arrival?: Yes ASA at discharge?: Yes Antiplatelet Therapy at Discharge:: Yes Statins at discharge?: Yes Tobias/ARB at discharge?: Yes Beta Kiersten at discharge?: Yes Done w/ Acute DE measure.: Yes Documented LVEF (%): 55 Ischemic Stroke Statin Dosing Therapy Reference: STATIN DOSE THERAPY REFERENCE: * Patients > 75 years receive moderate or high dose statin therapy. * Patients 75 years or YOUNGER should receive HIGH intensity statin dose unless contraindicated. You will be required to document reason for non-treatment if statin daily dose does not meet guidelines. HIGH DOSE STATIN THERAPY DAILY Atorvastatin > than or = to 40 mg Rosuvastatin > than or = to 20 mg Amlodipine + Atorvastatin > than or = to 2.5/40 mg Ezetimibe + Simvastatin 10/80 mg Simvastatin 80mg Discharge Plan Admission Admit Date/Time: 03/22/24 00:22 Primary Reason for Your Visit: myocardial infarction Attending Provider: Salvador Georges Primary Care Provider: Care Physician,No Primary Consulting Providers: Collin Young; Duke Dior; Nicolle Hernandez; Pedro Vazquez; Adiel Recio; Tobi Bowers; López Lagunas; Daphnie Tompkins; Deyvi Bradley; Samuel Quach; Tonny Masterson NP; Michelle Logan Instructions Additional Instructions / Restrictions: You have a stent placed. Very important you do take your aspirin and Brilinta as instructed. If you have worsening chest pain, shortness of breath, notify your physician or return to the emergency room. Please follow-up with cardiology at the assigned follow-up time. Also recommend that you do steps with a primary care doctor for routine monitoring of other medical issues. Discharge Orders/Prescriptions Prescriptions: New aspirin 81 mg Tablet,Delayed Release (Dr/Ec) 81 mg PO BREAKFAST Qty: 0 0RF atorvastatin 40 mg Tablet 40 mg PO QHS Qty: 30 0RF metoprolol tartrate 25 mg Tablet 25 mg PO BID Qty: 60 0RF Brilinta 90 mg Tablet 90 mg PO BID Qty: 60 0RF lisinopril 10 mg tablet 10 mg PO DAILY Qty: 30 0RF Continued ferrous sulfate 325 mg (65 mg iron) tablet 325 mg PO BID Referrals / Follow Up: Adiel Recio MD [Med Staff - Active Staff] - 04/17/24 2:30 pm (Appointment with Michelle Logan) Care Physician,No Primary [Primary Care Provider] - Disposition Disposition (needs filled in before D/C Order can be placed): Home, Self Care Charges/Coding Visit Charges Inpatient E&M: 16512 Disch Hosp >30min
--- NOTE | 2024-03-23 12:26 | CASEMGMT ---
Patient has order for discharge. Patient is discharge on Brilinta, copay is $436, savings card applied. RN CM in to discuss needs at discharge and updated regarding Brilinta copay and savings card. RN CM encourage patient to follow-up with research associate quality control qc and discuss other options for medication, patient voiced understanding. Patient denies further needs or help at discharge. Patient had no further questions or concerns.
[2024-03-23 13:52] VITALS: BP 146/86; PULSE 66; RESP 16; TEMP 36.4; O2SAT 98
--- NOTE | 2024-03-23 14:10 | PHA.DC.MC.R ---
Pharmacy [facility] has performed discharge medication reconciliation and counseling for this patient. The patient's discharge medication list was reviewed for discrepancies and discrepancies were resolved. The patient was counseled on the following discharge medications and changes in medications for homegoing were reviewed. The Reason for Use, instructions for use, and potential side effects were reviewed for all new medications. The patient's questions regarding all of their medications were answered. 1. Aspirin 81 mg PO daily 2. Atorvastatin 40 mg PO daily 3. Lisinopril 10 mg PO daily 4. Metoprolol tartrate 25 mg PO BID 5. Ticagrelor 90 mg PO BID The patient was able to verbally demonstrate an understanding of their discharge medications. The patient was counselled on new medications by lead pharmacy technician Christian. Medications at Discharge Home Medications ferrous sulfate 325 mg (65 mg iron) tablet 325 mg PO BID supplement 03/21/24 aspirin 81 mg tablet,delayed release 81 mg PO BREAKFAST #0 tabs 03/23/24 atorvastatin 40 mg tablet 40 mg PO QHS #30 tabs 03/23/24 lisinopril 10 mg tablet 10 mg PO DAILY #30 tabs 03/23/24 metoprolol tartrate 25 mg tablet 25 mg PO BID #60 tabs 03/23/24 ticagrelor 90 mg tablet (Brilinta) 90 mg PO BID #60 tabs 03/23/24
== END 2024-03-23 15:13 | disposition home or self-care (01) | DRG 322 ==
LOC: ED 23:09 → PCU 03-22 04:50
PROVIDERS: Specialist; Admitting Provider Internal Medicine; Emergency Provider Emergency Medicine
DX: I21.4 Non-ST elevation (NSTEMI) myocardial infarction (principal); B18.2 Chronic viral hepatitis C; D50.9 Iron deficiency anemia, unspecified; M19.90 Unspecified osteoarthritis, unspecified site; Z87.891 Personal history of nicotine dependence; R79.89 Other specified abnormal findings of blood chemistry; Z95.5 Presence of coronary angioplasty implant and graft
CPT/HCPCS: 36415; 71045; 80048; 80053; 80061; 84443; 84484; 85025; 85027; 85379; 92928; 93005; 93306; 93458; 99152; 99153; 99285; J7040; Q9957; Q9967; A4216; C1769; C1874; C1887; C1894; C9600

== ENCOUNTER → 2024-04-07 | Outpatient (CLI) | payer OTHER, MEDICARE, SELFPAY ==
[2024-04-07 17:48] LABS: Anion Gap 5 (5-15); BUN 18 mg/dL (7-18); BUN/Creat Ratio 23.2 RATIO (10-20); Calcium,Total 9.3 mg/dL (8.5-10.1); Chloride 105 mmol/L (98-107); Cholesterol 125 mg/dL (200); Creatinine, Serum 0.78 mg/dL (0.55-1.02); EST Glomerular Filtration Rate 79 mL/min (>60); Est Glom Filt Rate - Afr Amer 95 mL/min (>60); Glucose 98 mg/dL (74-106); High Density Lipoprotein 51 mg/dL; Potassium 3.7 mmol/L (3.5-5.1); Sodium Level 137 mmol/L (136-145); Triglycerides 55 mg/dL; Very Low Density Lipoprotein 11 mg/dL (5-40)
[2024-04-07 18:45] LABS: Hepatitis C Antibody Preliminary Reactive (Nonreactive)
[2024-04-11 12:09] LABS: HCV Quant. RNA PCR HCV Not Detected IU/mL (.)
== END | disposition home or self-care (01) ==
PROVIDERS: PCP Family Medicine; Referring Provider Family Medicine; Visit Provider Family Medicine
DX: Z00.00 Encounter for general adult medical examination without abnormal findings (principal); Z87.19 Personal history of other diseases of the digestive system
CPT/HCPCS: 36415; 80048; 80061; 86803; 87522

== ENCOUNTER → 2025-04-24 | Outpatient (CLI) | payer OTHER, SELFPAY ==
--- OUTSIDE RECORDS SUMMARY | 2025-04-24 10:28 | XMS RPT_ITS | CCD ---
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 Role Phone Pcp, No Primary Care Provider Unavailabl e Maribell Swan DO Primary Care Provider Care Physician, No Primary Primary Care Unava ilable Collin Young Admitting Unavailable Collin Young Consulting Unavailable Hemal, Adiel Attending Unavailable Amro, Ahmed Consulting Unavailable David, Nicolle Consulting Unavailable Vazquez, Pedro Consulting Unavailable Hemal, [place] Consulting Unavailable Belal, Farouk Consulting Unavailable Amaris Lagunas Consulting Unavailable Nagajothi, Nagapradee Consulting Unavailabl e Satti, Deyvi Consulting Unavailable Cleveland, Samuel Consulting Unavailable Aleja TEACHER'S ASSISTANT, Tonny Gutiérrez Consulting Unavailable Michelle Briones Consulting Unavail able Salvador Georges Consulting Unavailable Salvador Georges Attending Unavailable Ben Boyer Primary Care Unavailable Bne Boyer Referring Unavailable Ben Boyer Attending Unavailable Care Physician, No Primary Primary Care Unava ilable Collin Young Consulting Unavailable Collin Young Admitting Unavailable Salvador Georges Attending Unavailable Soo, Ahmed Consulting Unavailable David, Nicolle Consulting Unavailable George, Pedro Consulting Unavailable Hemal, [place] Consulting Unavailable Belal, Farouk Consulting Unavailable Amaris Lagunas Consulting Unavailable Nagajothi, Nagapradee Consulting Unavailabl e Satti, Deyvi Consulting Unavailable Cleveland, Samuel Consulting Unavailable Roof TEACHER'S ASSISTANT, Tonny Gutiérrez Consulting Unavailable Michelle Briones Consulting Unavail able Care Physician, No Primary Referring Unava ilable Michelle Briones Attending Unavail able Ben Boyer Primary Care Unavailable Care Physician, No Primary Primary Care Unava ilable Daphnie Tompkins Attending Unavailabl e Care Physician, No Primary Primary Care Unava ilable Collin Young Attending Unavailable Collin Young Consulting Unavailable Collin Young Admitting Unavailable Maribell Swan DO Primary Care Provider [phone] Medications Current Medications Medication Drug Class(es) Dates Sig (Normalized) Sig (Original) acetaminophen 500 mg oral tablet (3 sources) Start: 03-13-2022 take 2 tablets by mouth every eight hours as needed acetaminophen (TYLENOL) 500 mg tablet Take 2 tablets by mouth every 8 hours as needed for pain or fever (specify) (temp 101F). 03/13/2022 Active Comment on above: Take 2 tablets by mo uth every 8 hours as needed for pain or fever (specify) (temp 101F). ascorbic acid 500 mg oral tablet (4 sources) Vitamin C Start: 03-13-2022 End: 04-20-2022 take 1 tablet by mouth twice daily at mealtime ascorbic acid, vitamin C, (VITAMIN C) 500 mg tablet Indications: Other iron deficiency anemias Take 1 tablet by mouth twice daily with meals. 180 tablet 1 04/20/2022 Active Comment on above: Take 1 tablet by jolie th twice daily with meals. ferrous sulfate 325 mg oral tablet (4 sources) Start: 03-13-2022 End: 04-20-2022 take 1 tablet by mouth twice daily at mealtime ferrous sulfate 325 mg (65 mg iron) tablet Indications: Other iron deficiency anemias Take 1 tablet by mouth twice daily with meals. 180 tablet 1 04/20/2022 Active Comment on above: Take 1 tablet by jolie th twice daily with meals. pantoprazole 40 mg delayed release oral tablet (4 sources) Proton Pump Inhibitor Start: 03-14-2022 End: 04-20-2022 take 1 tablet by mouth once daily, then take 6 tablets by mouth in the morning pantoprazole DR (PROTONIX) 40 mg tablet Indications: GERD without esophagitis Take 1 tablet by mouth DAILY (6 AM). 90 tablet 1 04/20/2022 Active Comment on above: Take 1 tablet by jolie th DAILY (6 AM). Problems Active Problems Problem Classification Problem Date Documented Date Episodic/Chronic Acute myocardial infarction (1 source) Non-ST elevation (NSTEMI) myocardial infarction; Translations: [Non-ST elevation (NSTEMI) myocardial infarction] Onset: 04-03-2024 Chronic Aortic; peripheral; and visceral artery aneurysms (1 source) Thoracic aortic ectasia; Translations: [Thoracic aortic ectasia] Onset: 04-24-2024 Chronic Cardiac and circulatory congenital anomalies (1 source) Malformation of coronary vessels; Translations: [Malformation of coronary vessels] Onset: 04-24-2024 Chronic Coronary atherosclerosis and other heart disease (1 source) Presence of coronary angioplasty implant and graft; Translations: [Presence of coronary angioplasty implant and graft] Onset: 04-24-2024 Episodic Deficiency and other anemia (2 sources) Anemia; Translations: [Anemia, unspecified] Onset: 03-12-2022 03-12-2022 Episodic Deficiency and other anemia (1 source) Anemia, unspecified; Translations: [Anemia, unspecified] Onset: 04-03-2024 Episodic Deficiency and other anemia (1 source) Iron deficiency anemia, unspecified; Translations: [Iron deficiency anemia, unspecified] Onset: 04-03-2024 Episodic Esophageal disorders (1 source) Gastroesophageal reflux disease without esophagitis; Translations: [Gastro-esophageal reflux disease without esophagitis] Chronic Hepatitis (1 source) Chronic viral hepatitis C; Translations: [Chronic viral hepatitis C] Onset: 04-03-2024 Chronic Nonspecific chest pain (2 sources) Chest pain, unspecified; Translations: [Chest pain, unspecified] Onset: 04-03-2024 Episodic Osteoarthritis (1 source) Unspecified osteoarthritis, unspecified site; Translations: [Unspecified osteoarthritis, unspecified site] Onset: 04-03-2024 Chronic Other circulatory disease (2 sources) Elevated blood-pressure reading without diagnosis of hypertension; Translations: [Elevated blood-pressure reading, without diagnosis of hypertension] Episodic Other screening for suspected conditions (not mental disorders or infectious disease) (2 sources) Other specified abnormal findings of blood chemistry; Translations: [Patient encounter status] Onset: 04-03-2024 08-08-2024 Episodic Screening and history of mental health and substance abuse codes (1 source) Personal history of nicotine dependence; Translations: [Personal history of nicotine dependence] Onset: 04-03-2024 Episodic Past or Other Problems Problem Classification Problem Date Documented Da te Episodic/Chronic Deficiency and other anemia (4 sources) Iron deficiency anemia; Translations: [Other iron deficiency anemias] Onset: 03-12-2022 Episodic Other infections; including parasitic (3 sources) History of hepatitis C; Translations: [Personal history of other infectious and parasitic diseases] Onset: 03-12-2022 03-12-2022 Episodic Spondylosis; intervertebral disc disorders; other back problems (3 sources) Backache; Translations: [Dorsalgia, unspecified] Onset: 03-12-2022 03-12-2022 Episodic Unclassified (1 source) Patient encounter status 08-08-2024 Results Test Name Value Interpretation Reference Range Facil ity Cardiology Visit Reporton Cardiology Visit Report [facility] [address] [place] [address] OFFICE VISIT Date of Service: 04/17/24 MR#: [id number] Acct: [id number] Name: KATE JONES Rep #: [id number] : 1955 Provider: PATRICIA Fan Age/Sex: 68/F Location: [facility] [place] Status: Signed HPI HPI History of Present Illness Details: Kate Jones is a 68-year-old female that presented to [facility] on 03/21/2024 with chest discomfort. She was admitted to PCU for a non-STEMI. Her troponins trended 98, 396, 941. She did undergo a diagnostic heart catheterization on 03/22/2024 which demonstrated severe single- vessel disease of the LAD. She underwent stenting of this vessel. 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 Echocardiogram demonstrated preserved ejection with a dilated aortic root. Patient does have some fatigue since being home from the hospital. She has been compliant with her medications. She does not feel that she is able to participate in cardiac rehab. This is due to scheduling and cost. She does not have any worsening shortness of breath. She does not have any chest pain. Intake Vital Signs 03/22/24 00:54 04/17/24 14:21 Height 5 ft 5 in 5 ft 5 in Weight: 154 lb BMI 25.6 BP 156/86 H Blood Pressure Location Lt brachial Position Sitting Respiration 16 Pulse 60 Pulse Source Monitor Intake Visit Reasons: S/P [facility] 03/23 PER MMM Photography Editor Required: No Accompanied by: Self Is patient in pain?: No Allergies No Known Allergies Allergy (Verified 04/17/24 14:24) Medications ???Medication ???Instructions ???Recorded ???Confirmed ???Type ferrous sulfate 325 mg (65 mg 325 mg PO BID supplement 03/21/24 04/17/24 History iron) tablet aspirin 81 mg tablet,delayed 81 mg PO BREAKFAST #0 tabs 03/23/24 04/17/24 Rx release atorvastatin 40 mg tablet 40 mg PO QHS #90 tabs 04/17/24 04/17/24 Rx lisinopril 10 mg tablet 10 mg PO DAILY #90 tabs 04/17/24 04/17/24 Rx metoprolol tartrate 25 mg tablet 25 mg PO BID #180 tabs 04/17/24 04/17/24 Rx ticagrelor 90 mg tablet (Brilinta) 90 mg PO BID #180 tabs 04/17/24 04/17/24 Rx Have you fallen in the past year?: No PFSH Medical History (Updated 04/17/24 @ 14:45 by Michelle GOMEZ PA) Dilated aortic root Myocardial bridge Osteoarthritis Chronic hepatitis C History of tobacco abuse Atherosclerotic heart disease of [place] coronary artery without angina pectoris Anemia Surgical History Stented coronary artery (03/22/24) Social History Smoking Status: Former smoker ROS Const Const: Negative for fatigue, weakness, headache(s), daytime sleepiness or difficulty sleeping ENT ENT: Negative for headache(s), dizziness or Nosebleed/epistaxis Cardio Chest Pain: No Palpitations: No Edema: None Resp Respiratory: Negative for SOB with activity, SOB at rest, SOB orthopnea SOB lying down or Cough GI GI: Negative nausea, vomiting or heartburn Neuro Neuro: Negative for dizziness, lightheadedness, near syncope, headache(s) or weakness Endo Endo: Negative for fatigue Cardiology Exam Const Appearance: cooperative, no acute distress and well developed Orientation: alert, awake and oriented x3 Head Head: normocephalic and atraumatic Mouth: moist mucous membranes Eyes General: appearance normal, both eyes and all related structures Conjunctivae: conjunctivae normal Pupils: PERRL EOM: EOM intact bilaterally Neck Neck: normal visual inspection, no lymphadenopathy and no JVD Carotids: Negative bruit Neck Mass: Negative Neck mass Chest Chest inspection: normal inspection of the chest and symmetric chest movement Auscultation: Bilateral: Clear to Auscultation Cardio Palpation: normal PMI Rate: regular rate Rhythm: regular rhythm Heart sounds: S1 normal and S2 normal; Negative rub, gallop or murmur GI GI: normal to inspection, soft, no hepatosplenomegaly and bowel sounds present; Negative tender Neuro General: patient alert, patient awake, patient oriented x3, CN's II-XI intact bilaterally and moves all extremities Extremities Pulses: Normal: Right Posterior Tibial Pulse, Left Posterior Tibial Pulse, Right Radial Pulse and Left Radial Pulse Lower Extremity Edema: None: Bilateral Psych Psychological: normal affect Supplemental Info Supplemental Information Echocardiogram 03/22/2024: Normal LV size. Left ventricular systolic function is normal. The left ventricular ejection fraction is 55 %. Mildly dilated aortic root. Cardiac cath 03/22/2024: Severe single vessel disease RECOMMENDATIONS Referred for immediate PCI CORONARY ANGIOGRAPHY DOMINANCE: R (more content not included)... 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 [facility] Comment on above: Performed By: #### L 7000.7000 ####[facility] [address] [facility] [place], [address] HCV QT RNA PCR Not detected Normal . [facility] Comment on above: Performed By: #### L 7000.7000 ####[facility] [address] [place], [place], [id number] TEST INFO: Comment Normal . [facility] Comment on above: Result Comment: The quantitative range of this assay is 15 IU/mL to 100 million IU/mL. Performed at: [address] [id number] Cpa Tax: Priscilla Weldon MD, Phone: [phone] Performed By: #### L 7000.7000 ####[facility] [address] [place], [place], [id number] Basic Metabolic Profile (BMP )on 04-07-2024 BUN/CRE 23.2 RATIO High 10-20 [facility] Comment on above: Performed By: #### L 500.4100, L3890.6300, L500.2500 ####[facility] [address] [place], [address] CA,Total 9.3 mg/dL Normal 8.5-10.1 [facility] Comment on above: Performed By: #### L 500.4100, L3890.6300, L500.2500 ####[facility] [address] [place], [address] Chloride [Moles/Vol] 105 mmol/L Normal 98-107 [facility] Comment on above: Performed By: #### L 500.4100, L3890.6300, L500.2500 ####[facility] [address] [place], [address] CO2 [Moles/Vol] 27.0 mmol/L Normal 21.0-32.0 [facility] Comment on above: Performed By: #### L 500.4100, L3890.6300, L500.2500 ####[facility] [address] [place], [address] Creatinine [Mass/Vol] 0.78 mg/dL Normal 0.55-1.02 [facility] Comment on above: Result Comment: The validity of the calculated GFR GFRAA in patients over 70 years has not been determined. Clinical correlation is essential. Performed By: #### L 500.4100, L3890.6300, L500.2500 ####[facility] [address] [place], [address] EST GFR - AA 95 mL/min Normal >60 [facility] Comment on above: Result Comment: Afri can [place] GFR Calc Performed By: #### L 500.4100, L3890.6300, L500.2500 ####[facility] [address] [place], [address] GAP 5 Normal 5-15 [facility] Comment on above: Performed By: #### L 500.4100, L3890.6300, L500.2500 ####[facility] [address] [place], [address] GFR/1.73 sq M.predicted among non-blacks MDRD (S/P/Bld) [Vol rate/Area] 79 mL/min/{1.73_m2} Normal >60 [facility] Comment on above: Result Comment: Non- GFR Calc Performed By: #### L 500.4100, L3890.6300, L500.2500 ####[facility] [address] [place], [address] Glucose [Mass/Vol] 98 mg/dL Normal 74-106 [facility] Comment on above: Performed By: #### L 500.4100, L3890.6300, L500.2500 ####[facility] [address] [place], [address] Potassium [Moles/Vol] 3.7 mmol/L Normal 3.5-5.1 [facility] Comment on above: Performed By: #### L 500.4100, L3890.6300, L500.2500 ####[facility] [address] [place], [address] Sodium [Moles/Vol] 137 mmol/L Normal 136-145 [facility] Comment on above: Performed By: #### L 500.4100, L3890.6300, L500.2500 ####[facility] [address] [place], [address] Urea nitrogen [Mass/Vol] 18 mg/dL Normal 7-18 [facility] Comment on above: Performed By: #### L 500.4100, L3890.6300, L500.2500 ####[facility] [address] [place], [address] Hepatitis C Antibodyon 04-07 Hepatitis C AB Preliminary Reactive Abnormal Nonreactive [facility] Comment on above: Result Comment: Copy of report sent to Infection Control Printer [id number] 04/07/24 1837 ERIC. RESULTS CALLED TO DR MCKEON 04/07/241844 Adrienne Thompson. REPORT READ BACK BY . LEFT MESSAGE Non Reactive: < 0.8 Equivocal: >/= 0.8 to < 1.0 Reactive: >/= 1.[address] [facility] requires that a reactive/equivocal HCV antibody result be sent out for confirmation. HCV Quant by PCR testing. AMENDED REPORT 04/07/241844 HEPATITIS C AB previously reported as: Preliminary Reactive H Copy of report sent to Infection PVC Recycling Printer [id number] 04/07/247 ERIC. Performed By: #### L 500.4100, L3890.6300, L500.2500 ####[facility] [address] [place], [address] Lipid Profileon 04-07-2024 Cholesterol [Mass/Vol] 125 mg/dL Normal 200 [facility] Comment on above: Result Comment: <200 mg/dL Desirable 200-240 mg/dL Borderline >240 mg/dL High Risk Performed By: #### L 500.4100, L3890.6300, L500.2500 ####[facility] [address] [place], [address] Cholesterol in HDL [Mass/Vol] 51 mg/dL Normal [facility] Comment on above: Result Comment: The drugs N-Acetylcysteine and Metamizole may falsely depress this assay. Reference Range HDL <40 mg/dL Low HDL Cholesterol HDL >or= 60 mg/dL High HDL Cholesterol Performed By: #### L 500.4100, L3890.6300, L500.2500 ####[facility] [address] [place], [address] Cholesterol in LDL [Mass/Vol] 63 mg/dL Normal 0-130 [facility] Comment on above: Performed By: #### L 500.4100, L3890.6300, L500.2500 ####[facility] [address] [place], [address] Cholesterol in VLDL [Mass/Vol] 11 mg/dL Normal 5-40 [facility] Comment on above: Performed By: #### L 500.4100, L3890.6300, L500.2500 ####[facility] [address] [place], [address] Triglyceride [Mass/Vol] 55 mg/dL Normal [facility] Comment on above: Result Comment: The drugs N-Acetylcysteine and Metamizole may falsely depress this assay. Serum Triglycerides Reference Interval Normal <150 mg/dL Borderline high 150 - 199 mg/dL High 200 - 499 mg/dL Very High > or = 500 mg/dL Performed By: #### L 500.4100, L3890.6300, L500.2500 ####[facility] [address] [place], [address] 12 Lead EKGon 03-23-2024 12 Lead EKG [facility] [address] [place] [address] 12 Lead EKG 03/23/24 0529 MR#: [id number] Acct: [id number] Name: KATE JONES Rep #: [id number] : 1955 68 From: Renee Bowers MD Attending Dr: Dr. Salvador Georges, DO Status: DIS IN Ordering Dr: Daphnie Tompkins MD Date: 4 Location: [facility] Sex: F C Admitted: 03/22/24 Test Reason : AM EKG Blood Pressure : */* mmHG Vent. Rate : 65 BPM Atrial Rate : 65 BPM P-R Int : 170 ms QRS Dur : 82 ms QT Int : 458 ms P-R-T Axes : 50 27 51 degrees QTcB Int : 476 ms Normal sinus rhythm Normal ECG When compared with ECG of 22-Mar-2024 12:49, MANUAL COMPARISON REQUIRED DATA IS UNCONFIRMED Confirmed by RENEE BOWERS ([id number]), graphics editor JOANNE RAYMOND ([id number]) on 03/24/2024 1:47:48 PM Referred By: YOUNG Confirmed By: RENEE BOWERS 03/24/24 1347 Date Renee Bowers MD CC: Dr. Salvador Georges DO; Dr. Daphnie Tompkins MD; No Primary Care Physician Signed Normal [facility] CBC-Complete Blood Cnt No Di ffon 03-23-2024 Erythrocyte distribution width (RBC) [Ratio] 13.2 % Normal 11.6-14.6 [facility] Comment on above: Performed By: #### L 500.4050, L100.0500 ####[facility] [address] [place], [address] Hematocrit (Bld) [Volume fraction] 40.4 % Normal 37-47 [facility] Comment on above: Performed By: #### L 500.4050, L100.0500 ####[facility] [address] [place], [address] Hemoglobin (Bld) [Mass/Vol] 13.4 g/dL Normal 12.0-15.0 [facility] Comment on above: Performed By: #### L 500.4050, L100.0500 ####[facility] [address] [place], [address] MCH (RBC) [Entitic mass] 28.8 pg Normal 27.0-32.0 [facility] Comment on above: Performed By: #### L 500.4050, L100.0500 ####[facility] [address] [place], [address] MCHC (RBC) [Mass/Vol] 33.2 g/dL Normal 32-36 [facility] Comment on above: Performed By: #### L 500.4050, L100.0500 ####[facility] [address] [place], [address] MCV (RBC) [Entitic vol] 86.7 fL Normal 81-99 [facility] Comment on above: Performed By: #### L 500.4050, L100.0500 ####[facility] [address] [place], [address] Platelet mean volume (Bld) [Entitic vol] 11.0 fL Normal 6.2-12.0 [facility] Comment on above: Performed By: #### L 500.4050, L100.0500 ####[facility] [address] [place], [address] Platelets (Bld) [#/Vol] 185 10*3/uL Normal 150-450 [facility] Comment on above: Performed By: #### L 500.4050, L100.0500 ####[facility] [address] [place], [address] RBC (Bld) [#/Vol] 4.66 10*6/uL Normal 4.2-5.[address] [facility] Comment on above: Performed By: #### L 500.4050, L100.0500 ####[facility] [address] [place], [address] RDW SD 41.1 fl Normal 35.1-43.9 [facility] Comment on above: Performed By: #### L 500.4050, L100.0500 ####[facility] [address] [place], [address] WBC (Bld) [#/Vol] 5.2 10*3/uL Normal 4.4-11.0 [facility] Comment on above: Performed By: #### L 500.4050, L100.0500 ####[facility] [address] [place], [address] Comprehensive Metabolic Prof ilon 03-23-2024 Albumin [Mass/Vol] 3.7 g/dL Normal 3.2-5.0 [facility] Comment on above: Performed By: #### L 500.4050, L100.0500 ####[facility] [address] [place], [address] Albumin/Globulin [Mass ratio] 1.0 {ratio} Normal 0.9-2.4 [facility] Comment on above: Performed By: #### L 500.4050, L100.0500 ####[facility] [address] [place], [address] ALK P 61 U/L Normal 45-117 [facility] Comment on above: Performed By: #### L 500.4050, L100.0500 ####[facility] [address] [place], [address] ALT [Catalytic activity/Vol] 19 U/L Normal 13-56 [facility] Comment on above: Performed By: #### L 500.4050, L100.0500 ####[facility] [address] [place], [address] AST [Catalytic activity/Vol] 30 U/L Normal 15-37 [facility] Comment on above: Performed By: #### L 500.4050, L100.0500 ####[facility] [address] [place], [address] Bilirubin [Mass/Vol] 1.00 mg/dL Normal 0.20-1.00 [facility] Comment on above: Result Comment: For patients on eltrombopag therapy, use of Dimension [place] TBIL is not recommended. Performed By: #### L 500.4050, L100.0500 ####[facility] [address] [place], [address] BUN/CRE 21.6 RATIO High 10-20 [facility] Comment on above: Performed By: #### L 500.4050, L100.0500 ####[facility] [address] [place], [address] CA,Total 9.0 mg/dL Normal 8.5-10.1 [facility] Comment on above: Performed By: #### L 500.4050, L100.0500 ####[facility] [address] [place], [address] Chloride [Moles/Vol] 107 mmol/L Normal 98-107 [facility] Comment on above: Performed By: #### L 500.4050, L100.0500 ####[facility] [address] [place], [address] CO2 [Moles/Vol] 22.0 mmol/L Normal 21.0-32.0 [facility] Comment on above: Performed By: #### L 500.4050, L100.0500 ####[facility] [address] [place], [address] Creatinine [Mass/Vol] 0.65 mg/dL Normal 0.55-1.02 [facility] Comment on above: Result Comment: The validity of the calculated GFR GFRAA in patients over 70 years has not been determined. Clinical correlation is essential. Performed By: #### L 500.4050, L100.0500 ####[facility] [address] [place], [address] ECRCL 61.40 ml/min Normal [facility] Comment on above: Performed By: #### L 500.4050, L100.0500 ####[facility] [address] [place], [address] EST GFR - AA 117 mL/min Normal >60 [facility] Comment on above: Result Comment: Afri can [place] GFR Calc Performed By: #### L 500.4050, L100.0500 ####[facility] [address] [place], [address] GAP 7 Normal 5-15 [facility] Comment on above: Performed By: #### L 500.4050, L100.0500 ####[facility] [address] [place], [address] GFR/1.73 sq M.predicted among non-blacks MDRD (S/P/Bld) [Vol rate/Area] 97 mL/min/{1.73_m2} Normal >60 [facility] Comment on above: Result Comment: Non- GFR Calc Performed By: #### L 500.4050, L100.0500 ####[facility] [address] [place], [address] Globulin (S) [Mass/Vol] 3.8 g/dL Normal 2.2-4.2 [facility] Comment on above: Performed By: #### L 500.4050, L100.0500 ####[facility] [address] [place], [address] Glucose [Mass/Vol] 85 mg/dL Normal 74-106 [facility] Comment on above: Performed By: #### L 500.4050, L100.0500 ####[facility] [address] [place], [address] Potassium [Moles/Vol] 3.7 mmol/L Normal 3.5-5.1 [facility] Comment on above: Performed By: #### L 500.4050, L100.0500 ####[facility] [address] [place], [address] Sodium [Moles/Vol] 136 mmol/L Normal 136-145 [facility] Comment on above: Performed By: #### L 500.4050, L100.0500 ####[facility] [address] [place], [address] T PROT 7.5 g/dL Normal 6.4-8.2 [facility] Comment on above: Performed By: #### L 500.4050, L100.0500 ####[facility] [address] [place], [address] Urea nitrogen [Mass/Vol] 14 mg/dL Normal 7-18 [facility] Comment on above: Performed By: #### L 500.4050, L100.0500 ####[facility] [address] [place], [address] 12 Lead EKGon 03-22-2024 12 Lead EKG [facility] Cardiovascular Services [address] [place] [address] 12 Lead EKG 03/22/24 1249 MR#: [id number] Acct: [id number] Name: KATE JONES Rep #: [id number] : 1955 68 From: Renee Bowers MD Attending Dr: Dr. Salvador Georges, DO Status: DIS IN Ordering Dr: Daphnie Tompkins MD Date: 4 Location: [facility] Sex: F C Admitted: 03/22/24 Test Reason : POSTPCI Blood Pressure : */* mmHG Vent. Rate : 64 BPM Atrial Rate : 64 BPM P-R Int : 180 ms QRS Dur : 74 ms QT Int : 454 ms P-R-T Axes : 45 38 23 degrees QTcB Int : 468 ms Normal sinus rhythm Septal infarct , age undetermined Abnormal ECG When compared with ECG of 22-Mar-2024 01:31, MANUAL COMPARISON REQUIRED DATA IS UNCONFIRMED Confirmed by RENEE BOWERS ([id number]), graphics editor JOANNE RAYMOND ([id number]) on 03/24/2024 1:47:23 PM Referred By: PORTIA Confirmed By: RENEE BOWERS 03/24/24 1347 Date Renee Bowers MD CC: Dr. Salvador Georges DO; Dr. Daphnie Tompkins MD; No Primary Care Physician Signed Normal [facility] 12 Lead EKG [facility] Cardiovascular Services [address] [place] [address] 12 Lead EKG 03/22/24 0131 MR#: [id number] Acct: [id number] Name: KATE JONES Rep #: [id number] : 1955 68 From: Adiel Recio MD Attending Dr: Dr. Salvador Georges DO Status: ADM IN Ordering Dr: Collin Young DO Date: 03/22/24 Location: [facility] Sex: F C Admitted: 03/22/24 Test Reason : CP ADMIT Blood Pressure : */* mmHG Vent. Rate : 72 BPM Atrial Rate : 72 BPM P-R Int : 186 ms QRS Dur : 80 ms QT Int : 410 ms P-R-T Axes : 70 31 48 degrees QTcB Int : 448 ms Normal sinus rhythm Normal ECG When compared with ECG of 21-Mar-2024 21:06, MANUAL COMPARISON REQUIRED DATA IS UNCONFIRMED Confirmed by HEMAL KUHN, ADIEL ([id number]), graphics editor HARRISON GRAY ([id number]) on 03/23/2024 6:36:00 AM Referred By: YOUNG Confirmed By: ADIEL RECIO MD 03/23/24 0636 Date Adiel Recio MD CC: Dr. Collin Young DO; Dr. Salvador Georges DO; No Primary Care Physician Signed Normal [facility] CBC-Complete Blood Cnt No Di ffon 03-22-2024 Erythrocyte distribution width (RBC) [Ratio] 13.2 % Normal 11.6-14.6 [facility] Comment on above: Performed By: #### L 500.4100, L500.4050, L100.0500, L300.8000 ####[facility] [address] [place], [address] Hematocrit (Bld) [Volume fraction] 38.1 % Normal 37-47 [facility] Comment on above: Performed By: #### L 500.4100, L500.4050, L100.0500, L300.8000 ####[facility] [address] [place], [address] Hemoglobin (Bld) [Mass/Vol] 12.9 g/dL Normal 12.0-15.0 [facility] Comment on above: Performed By: #### L 500.4100, L500.4050, L100.0500, L300.8000 ####[facility] [address] [place], [address] MCH (RBC) [Entitic mass] 29.4 pg Normal 27.0-32.0 [facility] Comment on above: Performed By: #### L 500.4100, L500.4050, L100.0500, L300.8000 ####[facility] [address] [place], [address] MCHC (RBC) [Mass/Vol] 33.9 g/dL Normal 32-36 [facility] Comment on above: Performed By: #### L 500.4100, L500.4050, L100.0500, L300.8000 ####[facility] [address] [place], [address] MCV (RBC) [Entitic vol] 86.8 fL Normal 81-99 [facility] Comment on above: Performed By: #### L 500.4100, L500.4050, L100.0500, L300.8000 ####[facility] [address] [place], [address] Platelet mean volume (Bld) [Entitic vol] 10.8 fL Normal 6.2-12.0 [facility] Comment on above: Performed By: #### L 500.4100, L500.4050, L100.0500, L300.8000 ####[facility] [address] [place], [address] Platelets (Bld) [#/Vol] 174 10*3/uL Normal 150-450 [facility] Comment on above: Performed By: #### L 500.4100, L500.4050, L100.0500, L300.8000 ####[facility] [address] [place], [address] RBC (Bld) [#/Vol] 4.39 10*6/uL Normal 4.2-5.[address] [facility] Comment on above: Performed By: #### L 500.4100, L500.4050, L100.0500, L300.8000 ####[facility] [address] [place], [address] RDW SD 41.5 fl Normal 35.1-43.9 [facility] Comment on above: Performed By: #### L 500.4100, L500.4050, L100.0500, L300.8000 ####[facility] [address] [place], [address] WBC (Bld) [#/Vol] 5.2 10*3/uL Normal 4.4-11.0 [facility] Comment on above: Performed By: #### L 500.4100, L500.4050, L100.0500, L300.8000 ####[facility] [address] [place], [address] Cardiac Cath Diagnosticon Cardiac Cath Diagnostic [facility] Imaging Services [address] [place] [address] Cardiac Cath Diagnostic MR#: [id number] Acct: [id number] Name: KATE JONES Kiley Rep #: [id number] : 1955 68 From: Adiel Recio MD PCP: Care Physician,No Primary Status:ADM IN Patient Name: KATE JONES Study Date: 03/22/2024 Performing: Adiel Recio MD Ht: 65 inches 165.1 cm : 1955 Wt: 149.4 lbs 67.7 kg Age: 68 Gender: female BSA: 1.75 PROCEDURE(S) PERFORMED DC01-(62199)LHC/COR/LV IC12-(64899/C9600)MAURICIO W/WO PTCA, SINGLE CORONARY ARTERY CLINICAL PROFILE AND INDICATIONS Indications: Suspected CAD, New Onset Angina <= 2 months Heart Failure: None Stress/Imaging Stress/Image Study Performed: No CAD Presentations: Non-STEMI. Non-STEMI. Symptom onset Date/Time: 03/22/24 CONCLUSIONS Severe single vessel disease RECOMMENDATIONS Referred for immediate PCI DESCRIPTION OF PROCEDURE The patient arrived to the procedure lab. The risks and benefits of the procedure as well as a full description of our services here and current unavailability of surgical backup were fully explained to the patient and/or their significant other prior to the catheterization. The Timeout was completed, verifying the correct patient and procedure. The patient's procedural site was prepped and draped in the usual fashion. Local anesthetic was given subcutaneously to right radial region with Lidocaine 2%. Using a modified Seldinger technique, arterial access was obtained via the right radial artery, a 6Fr sheath was inserted. Left Coronary Artery selective angiography was performed in multiple views using a 5 Fr. 4.0 Page catheter. Right Coronary Artery selective angiography was then performed in multiple views using a 5 Fr. 4.0 Page catheter. Left Ventriculography was performed in CALDERON projection using a 5 Fr. Pigtail catheter. LV to AO pullback pressures were then recorded.The arterial sheath was pulled and a TR Band was applied for hemostasis CORONARY ANGIOGRAPHY DOMINANCE: Right Dominant LEFT HEART ASSESSMENT Left Ventricular Ejection Fraction: by LV Gram 65 % Normal LV wall motion Normal Left Ventricular systolic function LEFT MAIN: Angiographically normal LEFT ANTERIOR DESCENDING ARTERY: PROX LAD: 80 % Stenosis MID LAD: myocardial bridging CIRCUMFLEX ARTERY: Angiographically normal RIGHT CORONARY ARTERY: No significant disease noted COMPLICATIONS No Complications PROCEDURE MEDICATIONS Versed 1 mg IV Fentanyl 50 mcg IV Oxygen: 2 L/min via nasal cannula Brilinta 180 mg PO @ 03/22/2024 11:37:13 Heparin given IA 03/22/2024 10:56:58 Heparin 3000 unit(s) IV 03/22/2024 11:40:29 Verapamil 2.5mg, Ntg 100mcgs, 3000 units of Heparin given IA 03/22/2024 10:56:58 SUMMARY OF HEMODYNAMIC DATA Time AIR REST ECG 10:42:38 AO 176/86 (121) SA 11:24:51 LV 183/10, 19 11:31:36 LV 186/14, 19 11:31:42 LV 170/8, 19 11:32:36 LVp 182/12, 20 11:32:42 AOp 170/81 (114) 11:32:47 Signed By Adiel Recio MD On 03/22/2024 17:53:29 Adiel Recio MD 03/22/241753 Date Adiel Recio MD Cosigner Signature: Date (if indicated) CC: Dr. Adiel Recio MD; Dr. Salvador Georges DO; No Primary Care Physician Date Dictated: 03/22/24 1055 Date Transcribed: 03/22/241752 Martial Arts Instructor: [place] Signed Normal [facility] Cardiac Cath Interventionon 03-22-2024 Cardiac Cath Intervention [facility] Imaging Services [address] [place] [address] Cardiac Cath Intervention MR#: [id number] Acct: [id number] Name: KATE JONES Rep #: [id number] : 1955 68 From: Adiel Recio MD PCP: Care Physician,No Primary Status:ADM IN Patient Name: KATE JONES Study Date: 03/22/2024 Performing: Andrews Tompkins MD Ht: 65 inches 165.1 cm : 1955 Wt: 149.4 lbs 67.7 kg Age: 68 Gender: female BSA: 1.75 PROCEDURE(S) PERFORMED IC12-(30564/C9600)MAURICIO W/WO PTCA, SINGLE CORONARY ARTERY CLINICAL PROFILE AND CO-MORBIDITIES Heart Failure: None CAD Presentations: Non-STEMI. CONCLUSIONS Successful MAURICIO to pLAD RECOMMENDATIONS DESCRIPTION OF PROCEDURE The patient arrived to the procedure lab. The risks and benefits of the procedure as well as a full description of our services here and current unavailability of surgical backup were fully explained to the patient and/or their significant other prior to the catheterization. The Timeout was completed, verifying the correct patient and procedure. The patient's procedural site was prepped and draped in the usual fashion. Local anesthetic was given subcutaneously to right radial region with Lidocaine 2% Using a modified Seldinger technique,arterial access was obtained via the right radial artery, a 6Fr sheath was inserted. Left Coronary Artery selective angiography was performed in multiple views using a 5 Fr. 4.0 Page catheter. Right Coronary Artery selective angiography was then performed in multiple views using a 5 Fr. 4.0 Page catheter. Left Ventriculography was performed in CALDERON projection using a 5 Fr. Pigtail catheter. LV to AO pullback pressures were then recorded.The images were reviewed and options discussed. A decision was then made to proceed with an Intervention, IVUS or other adjunct procedure. XB 3.0 Guide catheter was inserted and engaged into the LCA. BMW Guide wire was advanced to the LAD. 4 x 12 [place] Drug Eluting stent was advanced across the lesion in the LAD, proximal. Angiogram performed pre stent deployment. Angiogram performed post stent deployment. The arterial sheath was pulled and a TR Band was applied for hemostasis INTERVENTION INFORMATION LESION SITE: LAD (Proximal) chronic total occlusion: No, lesion at bifurcation: No, Lesion Complexity: Non-High/Non-C, thrombus present: No, lesion length: 10 mm, culprit lesion: Yes, In-stent restenosis: No, Previously treated lesion: No Pre Stenosis: 80 % Pre intervention STACI flow: 3 PROCEDURE: Drug Eluting Stent mLAD had moderate disease. The vessel was about 2mm in diameter in this location and also appears intra myocardial. We felt that this lesion is best treated medically at this time. Post Stenosis: 0 % Post intervention STACI flow: 3 Lesion Devices: Cordis 6 Fr XB3.0 100cm Guide Catheter Harris .014 190cm BMW [place] Straight Medtronic 4.0 x 12 FLIP FRONTIER MAURICIO COMPLICATIONS No Complications PROCEDURE MEDICATIONS Versed 1 mg IV Fentanyl 50 mcg IV Oxygen: 2 L/min via nasal cannula Brilinta 180 mg PO @ 03/22/2024 11:37:13 Heparin given IA 03/22/2024 10:56:58 Heparin 3000 unit(s) IV 03/22/2024 11:40:29 Verapamil 2.5mg, Ntg 100mcgs, 3000 units of Heparin given IA 03/22/2024 10:56:58 SUMMARY OF HEMODYNAMIC DATA Time AIR REST ECG 10:42:38 AO 176/86 (121) SA 11:24:51 LV 183/10, 19 11:31:36 LV 186/14, 19 11:31:42 LV 170/8, 19 11:32:36 LVp 182/12, 20 11:32:42 AOp 170/81 (114) 11:32:47 Signed By Andrews Tompkins MD On 03/22/2024 12:28:57 Andrews Tompkins MD 03/22/24 1229 Date Adiel Rivers Signature: Date (if indicated) CC: Dr. Adiel Recio MD; Dr. Salvador Georges DO; No Primary Care Physician Date Dictated: 03/22/24 1055 Date Transcribed: 03/22/24 1228 Martial Arts Instructor: CO Signed Normal [facility] Comprehensive Metabolic Prof ilon 03-22-2024 ALB Normal 3.2-5.0 [facility] Comment on above: Result Comment: MOVE D TO DIFFERENT REQ Performed By: #### L 500.4100, L500.4050, L100.0500, L300.8000 #### [facility] [address] [place], [address] ALK P Normal 45-117 [facility] Comment on above: Result Comment: MOVE D TO DIFFERENT REQ Performed By: #### L 500.4100, L500.4050, L100.0500, L300.8000 #### [facility] [address] [place], [address] ALT Normal 13-56 [facility] Comment on above: Result Comment: MOVE D TO DIFFERENT REQ Performed By: #### L 500.4100, L500.4050, L100.0500, L300.8000 #### [facility] [address] [place], [address] AST Normal 15-37 [facility] Comment on above: Result Comment: MOVE D TO DIFFERENT REQ Performed By: #### L 500.4100, L500.4050, L100.0500, L300.8000 #### [facility] [address] [place], [address] BUN Normal 7-18 [facility] Comment on above: Result Comment: MOVE D TO DIFFERENT REQ Performed By: #### L 500.4100, L500.4050, L100.0500, L300.8000 #### [facility] [address] [place], [address] BUN/CRE Normal 10-20 [facility] Comment on above: Result Comment: MOVE D TO DIFFERENT REQ Performed By: #### L 500.4100, L500.4050, L100.0500, L300.8000 #### [facility] [address] [place], [address] CA,Total Normal 8.5-10.1 [facility] Comment on above: Result Comment: MOVE D TO DIFFERENT REQ Performed By: #### L 500.4100, L500.4050, L100.0500, L300.8000 #### [facility] [address] [place], [address] CL Normal 98-107 [facility] Comment on above: Result Comment: MOVE D TO DIFFERENT REQ Performed By: #### L 500.4100, L500.4050, L100.0500, L300.8000 #### [facility] [address] [place], [address] CO2 Normal 21.0-32.0 [facility] Comment on above: Result Comment: MOVE D TO DIFFERENT REQ Performed By: #### L 500.4100, L500.4050, L100.0500, L300.8000 #### [facility] [address] [place], [address] CREAT,SERUM Normal 0.55-1.02 [facility] Comment on above: Result Comment: MOVE D TO DIFFERENT REQ Performed By: #### L 500.4100, L500.4050, L100.0500, L300.8000 #### [facility] [address] [place], [address] EST GFR Normal >60 [facility] Comment on above: Result Comment: MOVE D TO DIFFERENT REQ Performed By: #### L 500.4100, L500.4050, L100.0500, L300.8000 #### [facility] [address] [place], [address] EST GFR - AA Normal >60 [facility] Comment on above: Result Comment: MOVE D TO DIFFERENT REQ Performed By: #### L 500.4100, L500.4050, L100.0500, L300.8000 #### [facility] [address] [place], [address] GAP Normal 5-15 [facility] Comment on above: Result Comment: MOVE D TO DIFFERENT REQ Performed By: #### L 500.4100, L500.4050, L100.0500, L300.8000 #### [facility] [address] [place], [address] GLU Normal 74-106 [facility] Comment on above: Result Comment: MOVE D TO DIFFERENT REQ Performed By: #### L 500.4100, L500.4050, L100.0500, L300.8000 #### [facility] [address] [place], [address] Potassium Normal 3.5-5.1 [facility] Comment on above: Result Comment: MOVE D TO DIFFERENT REQ Performed By: #### L 500.4100, L500.4050, L100.0500, L300.8000 #### [facility] [address] [place], [address] T BILI Normal 0.20-1.00 [facility] Comment on above: Result Comment: MOVE D TO DIFFERENT REQ Performed By: #### L 500.4100, L500.4050, L100.0500, L300.8000 #### [facility] [address] [place], [address] T PROT Normal 6.4-8.2 [facility] Comment on above: Result Comment: MOVE D TO DIFFERENT REQ Performed By: #### L 500.4100, L500.4050, L100.0500, L300.8000 #### [facility] [address] [place], [address] Comprehensive Metabolic Profil Normal 136-145 [facility] Comment on above: Result Comment: MOVE D TO DIFFERENT REQ Performed By: #### L 500.4100, L500.4050, L100.0500, L300.8000 #### [facility] [address] [place], [address] Albumin [Mass/Vol] 3.6 g/dL Normal 3.2-5.0 [facility] Comment on above: Order Comment: Comme nts: TNIH @ 0, 2, 6 hrs; Check #2 TNIH done in ED 'TROP' Serial specimen #1, #2 or #3: 3 3 Performed By: #### L 501.4020, L500.4100, L501.9520, L500.4050 #### [facility] [address] [place], [address] Albumin/Globulin [Mass ratio] 1.0 {ratio} Normal 0.9-2.4 [facility] Comment on above: Order Comment: Comme nts: TNIH @ 0, 2, 6 hrs; Check #2 TNIH done in ED 'TROP' Serial specimen #1, #2 or #3: 3 3 Performed By: #### L 501.4020, L500.4100, L501.9520, L500.4050 #### [facility] [address] [place], [address] ALK P 66 U/L Normal 45-117 [facility] Comment on above: Order Comment: Comme nts: TNIH @ 0, 2, 6 hrs; Check #2 TNIH done in ED 'TROP' Serial specimen #1, #2 or #3: 3 3 Performed By: #### L 501.4020, L500.4100, L501.9520, L500.4050 #### [facility] [address] [place], [address] ALT [Catalytic activity/Vol] 24 U/L Normal 13-56 [facility] Comment on above: Order Comment: Comme nts: TNIH @ 0, 2, 6 hrs; Check #2 TNIH done in ED 'TROP' Serial specimen #1, #2 or #3: 3 3 Performed By: #### L 501.4020, L500.4100, L501.9520, L500.4050 #### [facility] [address] [place], [address] AST [Catalytic activity/Vol] 26 U/L Normal 15-37 [facility] Comment on above: Order Comment: Comme nts: TNIH @ 0, 2, 6 hrs; Check #2 TNIH done in ED 'TROP' Serial specimen #1, #2 or #3: 3 3 Performed By: #### L 501.4020, L500.4100, L501.9520, L500.4050 #### [facility] [address] [place], [address] Bilirubin [Mass/Vol] 0.70 mg/dL Normal 0.20-1.00 [facility] Comment on above: Order Comment: Comme nts: TNIH @ 0, 2, 6 hrs; Check #2 TNIH done in ED 'TROP' Serial specimen #1, #2 or #3: 3 3 Result Comment: For patients on eltrombopag therapy, use of Dimension [place] TBIL is not recommended. Performed By: #### L 501.4020, L500.4100, L501.9520, L500.4050 #### [facility] [address] [place], [address] BUN/CRE 27.1 RATIO High 10-20 [facility] Comment on above: Order Comment: Comme nts: TNIH @ 0, 2, 6 hrs; Check #2 TNIH done in ED 'TROP' Serial specimen #1, #2 or #3: 3 3 Performed By: #### L 501.4020, L500.4100, L501.9520, L500.4050 #### [facility] [address] [place], [address] CA,Total 8.6 mg/dL Normal 8.5-10.1 [facility] Comment on above: Order Comment: Comme nts: TNIH @ 0, 2, 6 hrs; Check #2 TNIH done in ED 'TROP' Serial specimen #1, #2 or #3: 3 3 Performed By: #### L 501.4020, L500.4100, L501.9520, L500.4050 #### [facility] [address] [place], [address] Chloride [Moles/Vol] 108 mmol/L High 98-107 [facility] Comment on above: Order Comment: Comme nts: TNIH @ 0, 2, 6 hrs; Check #2 TNIH done in ED 'TROP' Serial specimen #1, #2 or #3: 3 3 Performed By: #### L 501.4020, L500.4100, L501.9520, L500.4050 #### [facility] [address] [place], [address] CO2 [Moles/Vol] 26.0 mmol/L Normal 21.0-32.0 [facility] Comment on above: Order Comment: Comme nts: TNIH @ 0, 2, 6 hrs; Check #2 TNIH done in ED 'TROP' Serial specimen #1, #2 or #3: 3 3 Performed By: #### L 501.4020, L500.4100, L501.9520, L500.4050 #### [facility] [address] [place], [address] Creatinine [Mass/Vol] 0.70 mg/dL Normal 0.55-1.02 [facility] Comment on above: Order Comment: Comme nts: TNIH @ 0, 2, 6 hrs; Check #2 TNIH done in ED 'TROP' Serial specimen #1, #2 or #3: 3 3 Result Comment: The validity of the calculated GFR GFRAA in patients over 70 years has not been determined. Clinical correlation is essential. Performed By: #### L 501.4020, L500.4100, L501.9520, L500.4050 #### [facility] [address] [place], [address] ECRCL 61.40 ml/min Normal [facility] Comment on above: Order Comment: Comme nts: TNIH @ 0, 2, 6 hrs; Check #2 TNIH done in ED 'TROP' Serial specimen #1, #2 or #3: 3 3 Performed By: #### L 501.4020, L500.4100, L501.9520, L500.4050 #### [facility] [address] [place], [address] EST GFR - AA 107 mL/min Normal >60 [facility] Comment on above: Order Comment: Comme nts: TNIH @ 0, 2, 6 hrs; Check #2 TNIH done in ED 'TROP' Serial specimen #1, #2 or #3: 3 3 Result Comment: Afri can [place] GFR Calc Performed By: #### L 501.4020, L500.4100, L501.9520, L500.4050 #### [facility] [address] [place], [address] GAP 4 Low 5-15 [facility] Comment on above: Order Comment: Comme nts: TNIH @ 0, 2, 6 hrs; Check #2 TNIH done in ED 'TROP' Serial specimen #1, #2 or #3: 3 3 Performed By: #### L 501.4020, L500.4100, L501.9520, L500.4050 #### [facility] [address] [place], [address] GFR/1.73 sq M.predicted among non-blacks MDRD (S/P/Bld) [Vol rate/Area] 89 mL/min/{1.73_m2} Normal >60 [facility] Comment on above: Order Comment: Comme nts: TNIH @ 0, 2, 6 hrs; Check #2 TNIH done in ED 'TROP' Serial specimen #1, #2 or #3: 3 3 Result Comment: Non- GFR Calc Performed By: #### L 501.4020, L500.4100, L501.9520, L500.4050 #### [facility] [address] [place], [address] Globulin (S) [Mass/Vol] 3.7 g/dL Normal 2.2-4.2 [facility] Comment on above: Order Comment: Comme nts: TNIH @ 0, 2, 6 hrs; Check #2 TNIH done in ED 'TROP' Serial specimen #1, #2 or #3: 3 3 Performed By: #### L 501.4020, L500.4100, L501.9520, L500.4050 #### [facility] [address] [place], [address] Glucose [Mass/Vol] 96 mg/dL Normal 74-106 [facility] Comment on above: Order Comment: Comme nts: TNIH @ 0, 2, 6 hrs; Check #2 TNIH done in ED 'TROP' Serial specimen #1, #2 or #3: 3 3 Performed By: #### L 501.4020, L500.4100, L501.9520, L500.4050 #### [facility] [address] [place], [address] Potassium [Moles/Vol] 3.7 mmol/L Normal 3.5-5.1 [facility] Comment on above: Order Comment: Comme nts: TNIH @ 0, 2, 6 hrs; Check #2 TNIH done in ED 'TROP' Serial specimen #1, #2 or #3: 3 3 Performed By: #### L 501.4020, L500.4100, L501.9520, L500.4050 #### [facility] [address] [place], [address] Sodium [Moles/Vol] 138 mmol/L Normal 136-145 [facility] Comment on above: Order Comment: Comme nts: TNIH @ 0, 2, 6 hrs; Check #2 TNIH done in ED 'TROP' Serial specimen #1, #2 or #3: 3 3 Performed By: #### L 501.4020, L500.4100, L501.9520, L500.4050 #### [facility] [address] [place], [address] T PROT 7.3 g/dL Normal 6.4-8.2 [facility] Comment on above: Order Comment: Comme nts: TNIH @ 0, 2, 6 hrs; Check #2 TNIH done in ED 'TROP' Serial specimen #1, #2 or #3: 3 3 Performed By: #### L 501.4020, L500.4100, L501.9520, L500.4050 #### [facility] [address] [place], [address] Urea nitrogen [Mass/Vol] 19 mg/dL High 7-18 [facility] Comment on above: Order Comment: Comme nts: TNIH @ 0, 2, 6 hrs; Check #2 TNIH done in ED 'TROP' Serial specimen #1, #2 or #3: 3 3 Performed By: #### L 501.4020, L500.4100, L501.9520, L500.4050 #### [facility] [address] [place], [address] Consultation - Cardiologyon 03-22-2024 Consultation - Cardiology [facility] Medical Records Department [address] [place] [address] Consultation - Cardiology 03/22/24 0806 MR#: [id number] Acct: [id number] Name: KATE JONES Rep #: [id number] : 1955 68 From: Adiel Recio MD PCP: Care Physician,No Primary Status:ADM IN Location: [place] [address]-1 Assessment Plan Assessment/Plan (1) NSTEMI, initial episode of care: PLAN: She presents with chest discomfort and non-ST elevation myocardial infarction. I would recommend at this time that we proceed with a left heart catheterization. Risk benefits alternatives have been explained to her she understands and agrees to proceed. Thank you for allowing me to participate in her care. HPI Consult Data Date of Consult: 03/22/24 HPI Narrative HPI Narrative: KATE JONES, is a 68 F who presents emergency room with chest discomfort she describes this as a heaviness with a feeling going up her arm. She has had this a few times. She has had no dizziness or diaphoresis no near-syncope or syncope. She presented to the emergency room EKG was done which was unremarkable but cardiac enzymes were noted to be abnormal. Cardiology was called for further evaluation and management. She denies any history of hypertension or hyperlipidemia but she does have a history of anemia. [facility] Medical History Anemia Home Medications ???Medication ???Instructions ???Recorded ???Last Taken ???Type ferrous sulfate 325 mg (65 mg 325 mg PO BID 03/21/24 Unknown History iron) tablet Allergy/AdvReac Type Severity Reaction Status Date / Time No Known Allergies Allergy Verified 03/21/24 20:56 Social History Smoking Status: Former smoker ROS Constitutional Constitutional: Denies fever(s) or weight loss Eyes Eyes: Reports systems reviewed and no addt'l complaints, except as documented ENT HEENT: Reports systems reviewed and no addt'l complaints, except as documented Cardiovascular Cardiovascular: Reports chest pain at rest and chest pain with activity; Denies dyspnea at rest, dyspnea on exertion, edema, palpitations or paroxysmal nocturnal dyspnea Respiratory/Chest Respiratory/Chest: Denies dyspnea on exertion, productive cough, shortness of breath at rest or shortness of breath with exertion Gastrointestinal Gastrointestinal: Denies change in bowel habits, nausea, vomiting or weight changes Genitourinary Genitourinary: Denies difficulty urinating Musculoskeletal Musculoskeletal: Denies joint stiffness or muscle weakness Integumentary Integumentary: Denies lesions Neurologic Neurologic: Denies dizziness or syncope Psychiatric Psychiatric: Denies anxiety Endocrine Endocrinology: Denies excessive sweating or fatigue Hematologic/Lymphatic Hematologic/Lymphatic: Denies anemia Allergic/Immunologic Allergic/Immunologic: Denies seasonal rhinorrhea Physical Exam Const alert, oriented x3 and no apparent distress General Appearance: cooperative HEENT hearing grossly normal bilaterally Head and Scalp: atraumatic Eyes EOMs intact bilaterally Neck General: normal visual inspection Chest inspection of chest normal and palpation of chest normal Resp normal respiratory effort Auscultation: clear to auscultation bilaterally Cardio regular rate, regular rhythm, S1 normal heart sound and S2 normal heart sound Jugular Venous Distention: JVD GI normal to inspection, nondistended, normoactive bowel sounds Extremity normal capillary refill and no pedal edema Peripheral Pulses: Yes pulses 2+ throughout and femoral pulses present Skin no rashes or lesions noted Neuro oriented x3 and CN's II-XII intact bilaterally Psych Appearance: grossly normal and appropriate Risk Stratification Risk Stratification Applicable: Yes Age >/= 65: Yes >/= 3 CAD Risk Factors (HTN, HLD, DM, family hx of CAD, or current smoker): No Aspirin Use in the Past 7 Days: No Severe Angina (>/= episodes in 24 hours): No EKG ST Changes >/= 0.5mm: No Positive Cardiac Marker: Yes STACI Risk Stratification Score: 2 STACI % Risk: 8% Risk Objective Data Vital Signs: Vital Signs Temp Pulse Resp BP Pulse Ox O2 Del Method 98.3 F 70 14 144/83 H 93 Room Air 03/22/24 07:40 03/22/24 07:40 03/22/24 07:40 03/22/24 07:40 03/22/24 08:04 03/22/24 08:04 Oxygen Delivery Method Room Air Weight: 149 lb 4.047 oz Body Mass Index (BMI) 24.8 Lab / Micro Data 03/22/24 03:50 03/22/24 03:50 Labs: Laboratory Results - last 24 hr 03/21/24 21:12: WBC 5.7, RBC 4.85, Hgb 14.2, Hct 42.2, MCV 87.0, MCH 29.3, MCHC 33.6, RDW Std Deviation 41.5, RDW Coeff of Trevor 13.2, Plt Count 190, MPV 11.1, Immature Gran % (Auto) 0.400, Neut % (Auto) 76.0 H, Lymph % (Auto) 13.9 L, [place] % (Auto) 7.7, Eos (more content not included)... Normal [facility] D-Dimer Quantitative (DVT/PE )on 03-22-2024 D-DIMER QUANT 0.35 FEU/ug/m Normal 0.27-0.49 [facility] Comment on above: Result Comment: NORM AL D-Dimer level (<0.50) indicates no DVT or PE. Performed By: #### L 500.4100, L500.4050, L100.0500, L300.8000 ####[facility] [address] [place], [address] Echo Completeon 03-22-2024 Echo Complete [facility] [address] [place] [address] Echo Complete 03/22/24 0749 MR#: [id number] Acct: [id number] Name: KATE JONES Rep #: [id number] : 1955 68 From: Adiel Recio MD Attending Dr: Dr. Salvador Georges, Status: ADM IN Ordering Dr: Collin Young DO Date: 03/22/24 Location: [facility] Sex: F C Admitted: 03/22/24 Reason For Study: NSTEMI Procedure This was a 2D Doppler, Color Flow transthoracic echocardiogram. The study was technically difficult. Due to repiratory interference. Exam performed portable in patient room. Left Ventricle Normal LV size. Left ventricular systolic function is normal. The left ventricular ejection fraction is 55 %. No regional wall motion abnormalities noted. Right Ventricle Normal RV size. Normal systolic function. Atria Normal left atrium. Normal right atrium. Mitral Valve Bileaflet diffuse mitral valve thickening. Tricuspid Valve Normal tricuspid valve. Mild tricuspid valve insufficiency. Pulmonary artery systolic pressure is 21 mmHg. Aortic Valve Trisinus/trileaflet aortic valve. Pulmonic Valve Normal pulmonic valve. Great Vessels Mildly dilated aortic root. The pulmonary artery is normal size. Inferior vena cava collapse with respiration. Pericardium/Pleural No pericardial effusion. MMode/2D Measurements Calculations LVIDd: 3.9 cm IVSd: 1.2 cm LVOT diam: 2.0 cm LVIDs: 2.6 cm LVPWd: 1.0 cm LVOT area: 3.2 cm2 RVDd: 3.4 cm FS: 33.4 % Ao root diam: 3.8 cm asc Aorta Diam: 3.9 cm LAV(MOD-bp): 61.7 ml LA dimension: 3.2 cm LAV(MOD-bp) Indexed: 35.4 ml/m2 LAV(MOD-sp2): 61.3 ml LAV(MOD-sp4): 55.9 ml SV(MOD-sp4): 36.3 ml LVAd ap4: 22.9 cm2 LVAd ap2: 23.9 cm2 LVLd ap4: 7.8 cm LVLd ap2: 8.1 cm SI(MOD-sp4): 20.8 ml/m2 EDV(MOD-sp4): 55.5 ml EDV(MOD-sp2): 58.3 ml EDV(sp4-el): 57.1 ml EDV(sp2-el): 60.2 ml LVAs ap4: 12.1 cm2 LVAs ap2: 12.1 cm2 LVLs ap4: 6.8 cm LVLs ap2: 6.5 cm ESV(MOD-sp4): 19.2 ml ESV(MOD-sp2): 19.9 ml ESV(sp4-el): 18.3 ml ESV(sp2-el): 19.2 ml EF(MOD-sp4): 65.5 % EF(MOD-sp2): 65.8 % EF(sp4-el): 67.8 % SV(MOD-sp2): 38.4 ml SV(sp4-el): 38.7 ml LA A4 area: 17.8 cm2 SI(MOD-sp2): 22.0 ml/m2 TAPSE: 1.7 cm Time Measurements MV dec time: 0.22 sec Doppler Measurements Calculations MV E max gaby: 76.4 cm/sec Lat Peak E' Gaby: 10.4 cm/sec Med Peak E' Gaby: 5.7 cm/sec MV A max gaby: 75.1 cm/sec E/E' lat: 7.4 E/E' med: 13.3 MV E/A: 1.0 MV V2 max: 82.6 cm/sec MV P1/2t max gaby: 80.3 cm/sec Ao V2 max: 109.0 cm/sec MV max P.7 mmHg MV P1/2t: 69.2 msec Ao max P.8 mmHg MV V2 mean: 52.9 cm/sec Ao V2 mean: 91.3 cm/sec MV mean P.2 mmHg MV dec slope: 340.1 cm/sec2 Ao mean P.5 mmHg MV V2 VTI: 22.0 cm MVA(P1/2t): 3.2 cm2 Ao V2 VTI: 26.3 cm AV (velocity ratio): 0.85 MVA(VTI): 3.3 cm2 CHRIS(I,D): 2.7 cm2 CHRIS(V,D): 2.7 cm2 LV V1 max: 92.2 cm/sec SV(LVOT): 72.0 ml PA V2 max: 54.7 cm/sec LV V1 max P.4 mmHg LV V1 mean P.1 mmHg LV V1 mean: 70.1 cm/sec LV V1 VTI: 22.3 cm PI end-d gaby: 68.2 cm/sec TR max gaby: 211.2 cm/sec TR max P.8 mmHg ECHO/Echo Complete Interpretation Summary Normal LV size. Left ventricular systolic function is normal. The left ventricular ejection fraction is 55 %. Mildly dilated aortic root. Ordering Physician: Collin Young Referring Physician: LOREN PCP Performed By: Renay Mcguire RVT, RDCS and Student 03/22/24 150 Date Adiel Recio MD CC: Dr. Collin Young DO; Dr. Salvador Georges DO; No Primary Care Physician Date Dictated: 03/22/24 0749 Date Transcribed: 03/22/24 150 Martial Arts Instructor: Signed Normal [facility] H AND P Exam - Hospitaliston 03-22-2024 H&P Exam - Hospitalist [facility] Medical Records Department [address] [place] [address] H P Exam - Hospitalist 03/22/24 0019 MR#: [id number] Acct: [id number] Name: KATE JONES Rep #: [id number] : 1955 68 From: Collin Young DO PCP: Care Physician,No Primary Status:ADM [place] Location: [place] [address] HPI - General General Date of Admission: 03/21/24 Date of Service: 03/22/24 Chief Complaint: Chest Pain. HPI Narrative KATE JONES, is a 68 F with a past medical history of tobacco abuse, chronic hepatitis C, MARIPOSA and OA who presents to [facility] ER complaining of chest pain. Ms. Jones reports her symptoms began approximately 6:30 PM on March 21, 2024 after she drove to work she parked her car and then had to take an extended walk into work when she suddenly began to feel at a sensation of chest tightness and palpitations. She describes the chest pain as substernal, pressure-like, heaviness, nonradiating and with chest pain seeming to be made better or worse by anything. She admits to palpitations but she denies associated diaphoresis, nausea, vomiting, GERD or a known history of cardiac disease or previous cardiac catheterization but she was very concerned that she was having a possible heart attack so she decided to come in for further evaluation and treatment. She denies recent chest pain prior to this episode, dyspnea on exertion or history of VTE. She additionally denies any recent significant travel, surgery, trauma, immobilization or calf pain / lower extremity swelling. In the ER she was noted to have an elevated initial troponin of 98 pg/mL followed by a second upwardly trending troponin of 396 pg/mL followed by a third troponin escalating to 941 pg/mL with a nonspecific EKG consistent with suspected non-ST elevation [place] and she was then admitted to the PCU for ongoing care for stay that is expected to extend beyond 2 midnights. [facility] Medical History (Updated 03/22/24 @ 02:[address] Collin Young, DO) Anemia Home Medications ???Medication ???Instructions ???Recorded ???Last Taken ???Type ferrous sulfate 325 mg (65 mg 325 mg PO BID 03/21/24 Unknown History iron) tablet Allergy/AdvReac Type Severity Reaction Status Date / Time No Known Allergies Allergy Verified 03/21/24 20:56 Social History Smoking Status: Former smoker ROS ROS Narrative Review of Systems: Constitutional: Patient denies fever or chills. Eyes: Patient denies changes in vision or discharge from eyes. ENT: Patient denies runny nose, sore throat or ear pain. Resp: Patient admits to dyspnea on exertion but she denies cough. CV: Patient admits to chest pain and palpitations but she denies heart racing. GI: Patient denies abdominal pain, nausea, vomiting or constipation. patient denies dysuria or hematuria. MSK. Patient denies arthralgias or myalgias. Skin: Patient denies rash, abscess or jaundice. Psych: Patient denies symptoms of uncontrolled depression or anxiety. Neuro: Patient denies headache, paresthesias or focal neurologic deficits. Allergy: Patient denies lip swelling, tongue swelling or urticaria. Hematology: Patient denies easy bleeding or easy bruisability. Endocrinology: Patient denies polyuria, polydipsia or polyphagia. 14 point review of systems otherwise negative save for positives noted above in HPI. Vital Signs Vital Signs Vital Signs: 03/21/24 20:56 03/21/24 21:24 03/21/24 21:25 Temperature 97.7 F L Temperature Source Oral Pulse Rate 107 H Respiratory Rate 16 Respiratory Effort Normal Non-Labored Blood Pressure 125/92 H Blood Pressure Mean 103 Pulse Ox 98 98 Oxygen Delivery Method Room Air Room Air 03/21/24 21:45 03/21/24 22:00 03/21/24 23:00 Temperature Temperature Source Pulse Rate 102 H 100 82 Respiratory Rate 16 15 21 H Respiratory Effort Blood Pressure 128/85 H 127/90 H 131/95 H Blood Pressure Mean 99 102 107 Pulse Ox Oxygen Delivery Method 03/21/24 23:56 03/22/24 00:00 Temperature 98 F Temperature Source Pulse Rate 78 77 Respiratory Rate 16 16 Respiratory Effort Blood Pressure 146/94 H 138/88 H Blood Pressure Mean 111 104 Pulse Ox 98 Oxygen Delivery Method Weight Weight: 152 lb 12.8 oz Body Mass Index (BMI) 25.4 Physical Exam Const alert, oriented x3, no apparent distress, average body habitus and healthy appearing General Appearance: cooperative HEENT normocephalic, head/scalp atraumatic, hearing grossly normal bilaterally and moist oral mucous membranes Eyes PERRL and EOMs intact bilaterally Neck no lymphadenopathy and supple Resp normal respiratory effort, no retractions, no use of accessory muscles and clear to auscultation (more content not included)... Normal [facility] L501.4020on 03-22-2024 TROPONIN-I HS 941 pg/mL Invalid Interpretation Code 3.0-54.0 [facility] Comment on above: Order Comment: Comme nts: TNIH @ 0, 2, 6 hrs; Check #2 TNIH done in ED 'TROP' Serial specimen #1, #2 or #3: 3 3 Result Comment: Crit ical Result(s) Called at: 04:42:03 03/22/2024 by: Kofi Vo. to ARead RN PCU. Results read back by same. Please Note: New Test Units and Gender Specific Reference Ranges. For more information see Policy Stat Procedure [place] High Sensitivity Troponin (TNIH) and attachments. Performed By: #### L 501.4020, L500.4100, L501.9520, L500.4050 #### [facility] [address] [place], [address] TROPONIN-I HS 396 pg/mL Invalid Interpretation Code 3.0-54.0 [facility] Comment on above: Result Comment: Crit ical Result(s) Called at: 00:22:51 03/22/2024 by: Kofi Vo. to LSparr burner technician. Results read back by same. Please Note: New Test Units and Gender Specific Reference Ranges. For more information see Policy Stat Procedure [place] High Sensitivity Troponin (TNIH) and attachments. Performed By: #### L 501.4020 ####[facility] [address] [place], [address] Lipid Profileon 03-22-2024 CHOL Normal 200 [facility] Comment on above: Result Comment: MOVE D TO DIFFERENT REQ Performed By: #### L 500.4100, L500.4050, L100.0500, L300.8000 ####[facility] [address] [place], [address] HDL Normal [facility] Comment on above: Result Comment: MOVE D TO DIFFERENT REQ Performed By: #### L 500.4100, L500.4050, L100.0500, L300.8000 ####[facility] [address] [place], [address] LDL Normal 0-130 [facility] Comment on above: Result Comment: MOVE D TO DIFFERENT REQ Performed By: #### L 500.4100, L500.4050, L100.0500, L300.8000 ####[facility] [address] [place], [address] TRIG Normal [facility] Comment on above: Result Comment: MOVE D TO DIFFERENT REQ Performed By: #### L 500.4100, L500.4050, L100.0500, L300.8000 ####[facility] [address] [place], [address] VLDL Normal 5-40 [facility] Comment on above: Result Comment: MOVE D TO DIFFERENT REQ Performed By: #### L 500.4100, L500.4050, L100.0500, L300.8000 ####[facility] [address] [place], [address] Cholesterol [Mass/Vol] 160 mg/dL Normal 200 [facility] Comment on above: Order Comment: Comme nts: TNIH @ 0, 2, 6 hrs; Check #2 TNIH done in ED 'TROP' Serial specimen #1, #2 or #3: 3 3 Result Comment: <200 mg/dL Desirable 200-240 mg/dL Borderline >240 mg/dL High Risk Performed By: #### L 501.4020, L500.4100, L501.9520, L500.4050 #### [facility] [address] [place], [address] Cholesterol in HDL [Mass/Vol] 51 mg/dL Normal [facility] Comment on above: Order Comment: Comme nts: TNIH @ 0, 2, 6 hrs; Check #2 TNIH done in ED 'TROP' Serial specimen #1, #2 or #3: 3 3 Result Comment: The drugs N-Acetylcysteine and Metamizole may falsely depress this assay. Reference Range HDL <40 mg/dL Low HDL Cholesterol HDL >or= 60 mg/dL High HDL Cholesterol Performed By: #### L 501.4020, L500.4100, L501.9520, L500.4050 #### [facility] [address] [place], [address] Cholesterol in LDL [Mass/Vol] 100 mg/dL Normal 0-130 [facility] Comment on above: Order Comment: Comme nts: TNIH @ 0, 2, 6 hrs; Check #2 TNIH done in ED 'TROP' Serial specimen #1, #2 or #3: 3 3 Performed By: #### L 501.4020, L500.4100, L501.9520, L500.4050 #### [facility] [address] [place], [address] Cholesterol in VLDL [Mass/Vol] 9 mg/dL Normal 5-40 [facility] Comment on above: Order Comment: Comme nts: TNIH @ 0, 2, 6 hrs; Check #2 TNIH done in ED 'TROP' Serial specimen #1, #2 or #3: 3 3 Performed By: #### L 501.4020, L500.4100, L501.9520, L500.4050 #### [facility] [address] [place], [address] Triglyceride [Mass/Vol] 45 mg/dL Normal [facility] Comment on above: Order Comment: Comme nts: TNIH @ 0, 2, 6 hrs; Check #2 TNIH done in ED 'TROP' Serial specimen #1, #2 or #3: 3 3 Result Comment: The drugs N-Acetylcysteine and Metamizole may falsely depress this assay. Serum Triglycerides Reference Interval Normal <150 mg/dL Borderline high 150 - 199 mg/dL High 200 - 499 mg/dL Very High > or = 500 mg/dL Performed By: #### L 501.4020, L500.4100, L501.9520, L500.4050 #### [facility] [address] [place], [address] Thyroid Stim Hormone (TSH)on 03-22-2024 TSH 1.390 uIU/mL Normal 0.358-3.740 [facility] Comment on above: Order Comment: Comme nts: TNIH @ 0, 2, 6 hrs; Check #2 TNIH done in ED 'TROP' Serial specimen #1, #2 or #3: 3 3 Performed By: #### L 501.4020, L500.4100, L501.9520, L500.4050 #### [facility] [address] [facility] [place], [place], [address] 12 Lead EKGon 03-21-2024 12 Lead EKG [facility] Cardiovascular Services [address] [place] [address] 12 Lead EKG 03/21/24 2106 MR#: [id number] Acct: [id number] Name: KATE JONES Rep #: [id number] : 1955 68 From: Adiel Recio MD Attending Dr: Dr. Salvador Georges, DO Status: ADM IN Ordering Dr: Kirby Weir MD Date: 03/21/24 Location: [facility] Sex: F C Admitted: 03/22/24 Test Reason : CP Blood Pressure : */* mmHG Vent. Rate : 107 BPM Atrial Rate : 107 BPM P-R Int : 178 ms QRS Dur : 78 ms QT Int : 356 ms P-R-T Axes : 72 39 55 degrees QTcB Int : 475 ms Sinus tachycardia Otherwise normal ECG Confirmed by ADIEL RECIO MD ([id number]), graphics editor HARRISON GRAY ([id number]) on 03/22/2024 8:23:36 AM Referred By: Confirmed By: ADIEL RECIO MD 03/22/24 0823 Date Adiel Recio MD CC: Dr. Salvador Georges DO; Dr. Kirby Weir MD; No Primary Care Physician Signed Normal [facility] Basic Metabolic Profile (BMP )on 03-21-2024 BUN/CRE 28.0 RATIO High -20 [facility] Comment on above: Order Comment: 1Y Performed By: #### L 100.0100, L500.2500, L501.5425 ####[facility] [address] [place], [address] CA,Total 9.4 mg/dL Normal 8.5-10.1 [facility] Comment on above: Order Comment: 1Y Performed By: #### L 100.0100, L500.2500, L501.5425 ####[facility] [address] [place], [address] Chloride [Moles/Vol] 106 mmol/L Normal 98-107 [facility] Comment on above: Order Comment: 1Y Performed By: #### L 100.0100, L500.2500, L501.5425 ####[facility] [address] [place], [address] CO2 [Moles/Vol] 23.0 mmol/L Normal 21.0-32.0 [facility] Comment on above: Order Comment: 1Y Performed By: #### L 100.0100, L500.2500, L501.5425 ####[facility] [address] [place], [address] Creatinine [Mass/Vol] 0.86 mg/dL Normal 0.55-1.02 [facility] Comment on above: Order Comment: 1Y Result Comment: The validity of the calculated GFR GFRAA in patients over 70 years has not been determined. Clinical correlation is essential. Performed By: #### L 100.0100, L500.2500, L501.5425 ####[facility] [address] [place], [address] ECRCL 62.05 ml/min Normal [facility] Comment on above: Order Comment: 1Y Performed By: #### L 100.0100, L500.2500, L501.5425 ####[facility] [address] [place], [address] EST GFR - AA 85 mL/min Normal >60 [facility] Comment on above: Order Comment: 1Y Result Comment: Afri can [place]ian GFR Calc Performed By: #### L 100.0100, L500.2500, L501.5425 ####[facility] [address] [place], [address] GAP 9 Normal 5-15 [facility] Comment on above: Order Comment: 1Y Performed By: #### L 100.0100, L500.2500, L501.5425 ####[facility] [address] [place], [address] GFR/1.73 sq M.predicted among non-blacks MDRD (S/P/Bld) [Vol rate/Area] 70 mL/min/{1.73_m2} Normal >60 [facility] Comment on above: Order Comment: 1Y Result Comment: Non- GFR Calc Performed By: #### L 100.0100, L500.2500, L501.5425 ####[facility] [address] [place], [address] Glucose [Mass/Vol] 139 mg/dL High 74-106 [facility] Comment on above: Order Comment: 1Y Result Comment: Fast ing Glucose result greater than or equal to 126 mg/dL suggests DIABETES MELLITUS per A.D.A. criteria. Performed By: #### L 100.0100, L500.2500, L501.5425 ####[facility] [address] [place], [address] Potassium [Moles/Vol] 3.8 mmol/L Normal 3.5-5.1 [facility] Comment on above: Order Comment: 1Y Performed By: #### L 100.0100, L500.2500, L501.5425 ####[facility] [address] [place], [address] Sodium [Moles/Vol] 138 mmol/L Normal 136-145 [facility] Comment on above: Order Comment: 1Y Performed By: #### L 100.0100, L500.2500, L501.5425 ####[facility] [address] [place], [address] Urea nitrogen [Mass/Vol] 24 mg/dL High 7-18 [facility] Comment on above: Order Comment: 1Y Performed By: #### L 100.0100, L500.2500, L501.5425 ####[facility] [address] [place], [address] CBC W/Diff, Automatedon 11-1 Absolute Lymph 0.79 X10 3/uL Low 0.83-4.51 [facility] Comment on above: Performed By: #### L 100.0100, L500.2500, L501.5425 ####[facility] [address] [place], [address] Absolute Neut 4.3 X10 3/uL Normal 2.0-7.7 [facility] Comment on above: Performed By: #### L 100.0100, L500.2500, L501.5425 ####[facility] [address] [place], [address] Basophils/100 WBC (Bld) 1.1 % High 0-1 [facility] Comment on above: Performed By: #### L 100.0100, L500.2500, L501.5425 ####[facility] [address] [place], [address] Eosinophils/100 WBC (Bld) 0.9 % Normal 0-5 [facility] Comment on above: Performed By: #### L 100.0100, L500.2500, L501.5425 ####[facility] [address] [place], [address] Erythrocyte distribution width (RBC) [Ratio] 13.2 % Normal 11.6-14.6 [facility] Comment on above: Performed By: #### L 100.0100, L500.2500, L501.5425 ####[facility] [address] [place], [address] Hematocrit (Bld) [Volume fraction] 42.2 % Normal 37-47 [facility] Comment on above: Performed By: #### L 100.0100, L500.2500, L501.5425 ####[facility] [address] [place], [address] Hemoglobin (Bld) [Mass/Vol] 14.2 g/dL Normal 12.0-15.0 [facility] Comment on above: Performed By: #### L 100.0100, L500.2500, L501.5425 ####[facility] [address] [place], [address] IG% 0.400 Normal 0.0-0.9 [facility] Comment on above: Result Comment: IG% - Immature Granulocytes (promyelocytes, myelocytes and metamyelocytes) > 1% indicates that a LEFT SHIFT is Present. Performed By: #### L 100.0100, L500.2500, L501.5425 ####[facility] [address] [place], [address] Lymphocytes/100 WBC (Bld) 13.9 % Low 19-41 [facility] Comment on above: Performed By: #### L 100.0100, L500.2500, L501.5425 ####[facility] [address] [place], [address] MCH (RBC) [Entitic mass] 29.3 pg Normal 27.0-32.0 [facility] Comment on above: Performed By: #### L 100.0100, L500.2500, L501.5425 ####[facility] [address] [place], [address] MCHC (RBC) [Mass/Vol] 33.6 g/dL Normal 32-36 [facility] Comment on above: Performed By: #### L 100.0100, L500.2500, L501.5425 ####[facility] [address] [place], [address] MCV (RBC) [Entitic vol] 87.0 fL Normal 81-99 [facility] Comment on above: Performed By: #### L 100.0100, L500.2500, L501.5425 ####[facility] [address] [place], [address] Monocytes/100 WBC (Bld) 7.7 % Normal 0-10 [facility] Comment on above: Performed By: #### L 100.0100, L500.2500, L501.5425 ####[facility] [address] [place], [address] Neutrophils/100 WBC (Bld) 76.0 % High 47-70 [facility] Comment on above: Performed By: #### L 100.0100, L500.2500, L501.5425 ####[facility] [address] [place], [address] Nucleated RBC (Bld) [#/Vol] 0 10*3/uL Normal 0-5 [facility] Comment on above: Performed By: #### L 100.0100, L500.2500, L501.5425 ####[facility] [address] [place], [address] Platelet mean volume (Bld) [Entitic vol] 11.1 fL Normal 6.2-12.0 [facility] Comment on above: Performed By: #### L 100.0100, L500.2500, L501.5425 ####[facility] [address] [place], [address] Platelets (Bld) [#/Vol] 190 10*3/uL Normal 150-450 [facility] Comment on above: Performed By: #### L 100.0100, L500.2500, L501.5425 ####[facility] [address] [place], [address] RBC (Bld) [#/Vol] 4.85 10*6/uL Normal 4.2-5.[address] [facility] Comment on above: Performed By: #### L 100.0100, L500.2500, L501.5425 ####[facility] [address] [place], [address] RDW SD 41.5 fl Normal 35.1-43.9 [facility] Comment on above: Performed By: #### L 100.0100, L500.2500, L501.5425 ####[facility] [address] [place], [address] WBC (Bld) [#/Vol] 5.7 10*3/uL Normal 4.4-11.0 [facility] Comment on above: Performed By: #### L 100.0100, L500.2500, L501.5425 ####[facility] [address] [place], [address] Chest 1 View (Portable)on Chest 1 View (Portable) [facility] Imaging Services [address] [place] [address] Chest 1 View (Portable) MR#: [id number] Acct: [id number] Name: ANA JONES Rep #: [id number] : 1955 F 68 From: Tee Henry MD PCP: Care Physician,No Primary Status: PRE ER Study: Chest 1 View (Portable) Date of Exam: 03/21/24 Exam# [id number] Ordering Dr: Kirby Weir MD [id number] STUDY: X-RAY CHEST REASON FOR EXAM: Female, 68 years old. chest pain TECHNIQUE: AP portable COMPARISON: None. FINDINGS: The lungs are clear and expanded. There is no demonstrated pleural abnormality. Normal size heart. Normal mediastinum and mily. Normal visualized pulmonary arteries. Normal visualized aortic arch and descending thoracic aorta. Normal visualized thoracic spine. Normal visualized ribs, clavicles, and shoulders. There is no demonstrated abnormality of the visualized soft tissue structures of the upper abdomen. RAD/Chest 1 View (Portable) IMPRESSION: Normal x-ray examination of the chest. Electronically Signed: Tee Henry MD at 21:33 EST Reading Location ID and State: [address] [place] [address] Tel , Service support , CC: Dr. Kirby Weir MD; No Primary Care Physician Martial Arts Instructor: Signed Normal [facility] Emergency Department Summary on 03-21-2024 Emergency Department Summary [facility] Medical Records Department [address] [place] [address] Emergency Department Summary 03/21/24 MR#: [id number] Acct: [id number] Name: KATE JONES Rep #: [id number] : 1955 68 From: Kirby Weir MD PCP: Care Physician,No Primary Status:ADM BEAU Location: [address] History of Present Illness Chief Complaint: Chest Pain Informant: patient Onset/Context/Timing Onset: Today Activity at onset: gradual Timing: Continuous Quality: Positive for Heaviness Location: Substernal Current Severity: Gone Maximum Severity: Mild Worsened By: Nothing Relieved By: Nothing Associated Symptoms: Positive for Dyspnea and Palpitations; Negative for Nausea, Vomiting, Diaphoresis, Cough, Fever, Lightheadedness or Acid Reflux Narrative Narrative: 68-year-old female history of anemia. No cardiac history. Driving to work she said when she parked her car and was walking into work she felt palpitations and chest tightness. Symptoms began around 630. She had the rest when she got into the locker room. Told him she did not think she could work and came in the emergency department to be evaluated. Denies any history of cardiac disease. No prior cardiac cath. She has not had recent chest pain or shortness of breath. She has had no recent exertional chest pain or exertional dyspnea. No history of DVT or PE. No risk factors. Denies any recent travel, surgery or immobilization. No calf pain or swelling. No hemoptysis. Prior Similar Symptoms: No Recent Illness/Hospitalizatio n: No PE Risk Factors: Negative for Recent Travel/Surgery, Recent Immobilization, Prior DVT or PE, Cancer or OCP + Smoking + >/=35 TAD Risk Factors: Negative for Marfan's Syndrome [facility] Medical History Anemia Home Medications ???Medication ???Instructions ???Recorded ???Last Taken ???Type ferrous sulfate 325 mg (65 mg 325 mg PO BID 03/21/24 Unknown History iron) tablet Allergy/AdvReac Type Severity Reaction Status Date / Time No Known Allergies Allergy Verified 03/21/24 20:56 Social History Smoking Status: Former smoker ROS ROS ED ROS Narrative Exertional chest pain and dyspnea at night. Not recently otherwise. Constitutional Constitutional ED: Denies chills or fever(s) Eyes Eyes: Reports none ENT ENT ED: Denies ear pain Cardiovascular Cardiovascular: Reports as per HPI, chest pain and palpitations Respiratory/Chest Respiratory/Chest: Reports dyspnea on exertion; Denies cough Gastrointestinal Gastrointestinal: Denies abdominal pain or constipation Genitourinary Genitourinary ED: Denies dysuria or hematuria Musculoskeletal Musculoskeletal: Denies arthralgias Integumentary Denies abscess Neurologic Neurologic: Denies headache(s) Psychiatric Psychiatric: Denies anxiety or depression Endocrine Endocrinology: Denies cold intolerance Hematologic/Lymphatic Hematologic/Lymphatic: Denies easy bleeding Allergic/Immunologic Allergic/Immunologic ED: Denies mouth swelling, tongue swelling or urticaria EXAM Physical Exam Narrative Exam Narrative: 68-year-old female vital signs stable afebrile. Does not look septic toxic any distress. Pulse ox 98% on room air no hypoxia. Currently symptom-free pain-free. H EENT exam unremarkable. Neck nontender no JVD. Lungs clear to auscultation bilaterally. Heart regular rhythm no murmur. Chest wall nontender. Abdomen soft nontender. Moving all 4 extremities. Calves are nontender without edema or cords. Equal symmetrical radial pulses. Neurologically she is awake and alert no focal motor deficits. Answering questions and following commands. Const Vital Signs: 03/21/24 20:56 03/21/24 21:24 03/21/24 21:25 Temperature 97.7 F L Temperature Source Oral Pulse Rate 107 H Respiratory Rate 16 Respiratory Effort Normal Non-Labored Blood Pressure 125/92 H Blood Pressure Mean 103 Pulse Ox 98 98 Oxygen Delivery Method Room Air Room Air 03/21/24 21:45 03/21/24 22:00 03/21/24 23:00 Temperature Temperature Source Pulse Rate 102 H 100 82 Respiratory Rate 16 15 21 H Respiratory Effort Blood Pressure 128/85 H 127/90 H 131/95 H Blood Pressure Mean 99 102 107 Pulse Ox Oxygen Delivery Method Positive well nourished and well developed; Negative for obese, cachectic, contractures or unkempt General Appearance ED: well developed and NAD; Negative for unkempt, cachectic, contractures or pallor Nutritional Appearance: Negative for cachectic or obese HEENT Reports moist mucous membranes normocephalic and atraumatic Eyes PERRL and EOMs intact bilaterally Neck no lymphadenopathy, supple and no JVD General: Negative for tenderness Chest (more content not included)... Normal [facility] L501.5425on 03-21-2024 TROPONIN-I HS 98 pg/mL High 3.0-54.0 [facility] Comment on above: Order Comment: 1Y Result Comment: Samina maier Note: New Test Units and Gender Specific Reference Ranges. For more information see Policy Stat Procedure [place] High Sensitivity Troponin (TNIH) and attachments. Performed By: #### L 100.0100, L500.2500, L501.5425 ####[facility] [address] [place], [address] HEMOGLOBIN (HGB)on 2 Hemoglobin (Bld) [Mass/Vol] 13.0 g/dL 11.5 - 15.5 g/dL [facility] HEMOGLOBIN (HGB)on 2 Hemoglobin (Bld) [Mass/Vol] 10.9 g/dL Low 11.5 - 15.5 g/dL [facility] CNPNon 03-12-2022 CNPN Telephone (MEPRAD) ANA JONES ([id number]) 1955 F Date Time Provider Department 03/12/22 AMARIS CRAWFORD During your visit today, we recorded the following information about you: Amaris Crawford MD 03/12/2022 10:05 AM Signed RQB note error Allergies As of Date: 03/12/2022 (No Known Allergies) Date Reviewed: 03/12/2022 Reviewed by: Rafal Sommers MD - Fully Assessed Reason for Visit: Hospital To Hospital [[id number]] Facility-Administered Medications as of 03/12/2022 - iv contrast (radiology procedure) Problem List As Of Date: 03/12/2022 (None) Encounter Status:Closed by AMARIS CRAWFORD on 03/12/22 [facility] Vital Signs Date Time Vital Sign Value Performing Clinician Meg arechiga 04-20-2022 10:43-0500 Diastolic blood pressure 84 mm[Hg] Maribell Sheets DO Work Phone: [facility] 04-20-2022 10:43-0500 Systolic blood pressure 136 mm[Hg] Maribell Sheets DO Work Phone: [facility] 04-20-2022 10:30-0500 Body height 160.7 cm Maribell Sheets DO Work Phone: [facility] 04-20-2022 10:30-0500 Body temperature 97.59 [degF] Maribell Sheets DO Work Phone: [facility] 04-20-2022 10:30-0500 Body weight 67.59 kg Maribell Sheets DO Work Phone: [facility] 04-20-2022 10:30-0500 Heart rate 61 /min Maribell Sheets DO Work Phone: [facility] 04-20-2022 10:30-0500 Respiratory rate 16 /min Maribell Sheets DO Work Phone: [facility] 04-20-2022 10:30-0500 SaO2% (BldA) [Mass fraction] 100 % Maribell Sheets DO Work Phone: [facility] 03-23-2022 15:00-0500 Diastolic blood pressure 90 mm[Hg] Maribell Sheets DO Work Phone: [facility] 03-23-2022 15:00-0500 Systolic blood pressure 130 mm[Hg] Maribell Sheets DO Work Phone: [facility] 03-23-2022 14:34-0500 Body height 160.7 cm Maribell Sheets DO Work Phone: [facility] 03-23-2022 14:34-0500 Body temperature 98.4 [degF] Maribell Sheets DO Work Phone: [facility] 03-23-2022 14:34-0500 Body weight 66.13 kg Maribell Sheets DO Work Phone: [facility] 03-23-2022 14:34-0500 Heart rate 79 /min Maribell Sheets DO Work Phone: [facility] 03-23-2022 14:34-0500 Respiratory rate 16 /min Maribell Sheets DO Work Phone: [facility] 03-23-2022 14:34-0500 SaO2% (BldA) [Mass fraction] 99 % Maribell Sheets DO Work Phone: [facility] Encounters Encounter Date Encounter Type Care Provider Facility Start: 08-08-2024 End: 09-08-2024 ambulatory Maribell C Sheets DO Work Phone: [facility] Start: 05-11-2024 Encounter for genera l adult medical examination without abnormal findings Ben Boyer [facility] Start: 04-17-2024 End: 04-17-2024 ambulatory No Primary Care Physician Facility:[facility] Start: 04-07-2024 End: 04-07-2024 ambulatory Ben Boyer Facility:[facility] Start: 03-23-2024 ambulatory No Primary Car e Physician Facility:[facility] Start: 03-22-2024 End: 03-23-2024 Evaluation and management of inpatient No Primary Care Physician Facility:[facility] Start: 03-21-2024 ambulatory No Primary Car e Physician Facility:[facility] Start: 04-20-2022 End: 04-20-2022 Patient encounter procedure Maribell C Sheets DO Work Phone: [facility] Comment on above: Well adult exam (Aide lizy Dx); Other iron deficiency anemias; Elevated blood pressure reading without diagnosis of hypertension; GERD without esophagitis; Status post hysterectomy Start: 04-20-2022 End: 04-20-2022 Patient encounter status Maribell C Sheets DO Work Phone: [facility] Start: 03-23-2022 End: 03-23-2022 Patient encounter procedure Maribell C Sheets DO Work Phone: [facility] Comment on above: Other iron deficienc y anemia (Primary Dx); Elevated blood pressure reading without diagnosis of hypertension Start: 03-12-2022 Telephone encounter Amaris Crawford MD Work Phone: [place] [facility] Adult Comment on above: Hospital To Hospital Procedures Date Procedure Procedure Detail Performing Clinician H/O: hysterectomy Status post hysterectom y Maribell C Sheets DO Work Phone: Plan of Treatment Date Care Activity Detail Author Start: 2031 RSV Vaccine (1 - 1-d ose 75+ series) RSV Vaccine (1 - 1-dose 75+ series) [facility] Start: 03-13-2025 DIABETES SCREEN DIABETES SCREEN [facility] Start: 03-13-2025 Diabetes Screening Diabetes Screenin g [facility] Start: 03-12-2025 DIABETES SCREEN DIABETES SCREEN [facility] Start: 01-01-2025 Influenza vaccination Influenz a Vaccine (Season Ended) [facility] Start: 05-03-2024 Advance Directive Discussion Advance Directive Discussion [facility] Start: 01-02-2024 Covid-19 Vaccine ( season) Covid-[address] () [facility] Start: 04-20-20[address] L[address]ID SCREEN [facility] Comment on above: Postponed from 04/22 (Declined at this time) Start: 04-20-[address] [facility] Comment on above: Postponed from 04/22 (Declined at this time) Start: 03-23-2023 COVID-19 VACCINE (5 - Booster for Moderna series) COVID-19 VACCINE (5 - Booster for Moderna series) [facility] Comment on above: Postponed from 12/13 (Declined at this time) Start: 03-23-2023 PNEUMOCOCCAL: 65+ (1 - PCV) PNEUMOCOCCAL: 65+ (1 - PCV) [facility] Comment on above: Postponed from 04/22 (Declined at this time) Start: 03-23-2023 SHINGRIX VACCINE (1 of 2) SHINGRIX VACCINE (1 of 2) [facility] Comment on above: Postponed from 04/22 (Declined at this time) Start: 03-23-2023 Urine microalbumin profile DTAP,TDAP,TD (1 - Tdap) [facility] Comment on above: Postponed from 04/22 (Declined at this time) Start: 03-13-2023 COLORECTAL CANCER SCREENING COLORECTAL CANCER SCREENING [facility] Start: 03-13-2023 FECAL OCCULT BLOOD FECAL OCCULT BLOO D [facility] Start: 03-13-2023 Screening for malign ant neoplasm of colon [facility] Start: 10-30-2022 Influenza vaccination INFLUENZA (#1) [facility] Comment on above: Postponed from 01/01 (Declined at this time) Start: 01-01-2022 Influenza vaccination INFLUENZA (#1) [facility] Start: 05-03-2021 ADVANCE DIRECTIVE DISCUSSION ADVANCE DIRECTIVE DISCUSSION [facility] Start: 05-03-2021 DEPRESSION ASSESSMENT DEPRESSION ASS ESSMENT [facility] Start: 2021 BONE DENSITY BONE DENSITY [facility] Start: 2021 PNEUMOCOCCAL: 65+ (1 - PCV) PNEUMOCOCCAL: 65+ (1 - PCV) [facility] Start: 2021 Screening for osteoporosis Bone Density Screening [facility] Start: 2016 Hepatitis B Vaccine (1 of 3 - Risk 3-dose series) Hepatitis B Vaccine (1 of 3 - Risk 3-dose series) [facility] Start: 2006 Pneumococcal Vaccine : 50+ (1 of 1 - PCV) Pneumococcal Vaccine: 50+ (1 of 1 - PCV) [facility] Start: 2006 SHINGRIX VACCINE (1 of 2) SHINGRIX VACCINE (1 of 2) [facility] Start: 2001 COLOGUARD (FIT-DNA) COLOGUARD (FIT-D NA) [facility] Start: [address] [facility] Start: 2001 COLORECTAL CANCER SCREENING COLORECTAL CANCER SCREENING [facility] Start: [address] COLONOGRAPHY [facility] Start: 2001 FECAL OCCULT BLOOD FECAL OCCULT BLOO D [facility] Start: 2001 Lipid panel Lipid Screening [facility] Start: 2001 LIP[address] SCREEN LIPID SCREEN [facility] Start: 2001 Screening for malign ant neoplasm of colon [facility] Start: 2001 SIGMOIDOSCOPY SIGMOIDOSCOPY [facility] Start: [address] [facility] Start: 1996 Screening for malign ant neoplasm of breast Mammogram Screening [facility] Start: [address] [facility] Start: 1974 Anxiety Screening Anxiety Screening [facility] Start: 1974 Depression Screening Depression Scre ening [facility] Start: 1974 HEPATITIS C SCREENING HEPATITIS C SC REENING [facility] Start: 1974 HIV SCREENING HIV SCREENING [facility] Start: 1955 COVID-19 VACCINE (#1) COVID-19 VACCI NE (#1) [facility] End: 09-07-2025 DBT Breast - bilateral screening ZAC SCREENING W GREGORY Radiology Routine Encounter for screening mammogram for breast cancer 1 Occurrences starting 08/08/2024 until 09/07/2025 [facility] Work Phone: Comment on above: 1 Occurrences starti ng 08/08/2024 until 09/07/2025 Immunizations Immunization Date Immunization Notes Care Provider Fa juju 10-18-2021 COVID-19 original vaccine, booster dose, monovalent (MODERNA) Maribell Sheets DO Work Phone: [facility] 06-07-2021 COVID-19 original vaccine, booster dose, monovalent (MODERNA) Maribell Sheets DO Work Phone: [facility] 09-20-2020 COVID-19 original vaccine, full dose, monovalent (MODERNA) Maribell Sheets DO Work Phone: [facility] 08-20-2020 COVID-19 original vaccine, full dose, monovalent (MODERNA) Maribell Sheets DO Work Phone: [facility] Payers Date Payer Category Payer Medicare [id number] 2024 Self-pay 2024 Unknown [id number] 2022 Government (not [facility] or Medicaid) [facility] GENERIC [id number] 2022 Unknown [facility] GENERIC [id number] 2022-Present [phone] [place] [id number] 2021 Medicare MEDICARE [id number] 2016 Private Health Insurance [id number] Unknown [id number] Unknown [id number] Unknown 2049 [id number] Unknown [id number] Unknown [id number] Unknown [id number] Unknown [id number] Social History Date Type Detail Facility Start: [facility] Start: 03-12-2022 End: 04-20-2022 Alcohol intake Current drinker of alcohol (finding) [facility] Start: 03-12-2022 Alcohol Comment very rarely. [facility] Start: 1955 Sex Assigned At Not on file C [facility] Start: 03-02-2022 End: 03-23-2022 Exposure to SARS-CoV-2 (event) Not sure [facility] Start: 03-23-2022 Tobacco smoking stat us NHIS Ex-smoker [facility] History of tobacco use Current smoker [facility] History of tobacco use Cigarette Smoker C [facility] Start: 03-23-2022 Tobacco use and exposure Smoke less tobacco non-user [facility] Start: 04-20-2022 End: 05-29-2022 History of Social function [facility] Start: 04-20-2022 End: 05-29-[address] [facility] Adult Depression Scr eening Assessment 0 [facility] Functional Status Date Assessment Result Facility 03-13-2022 Are you deaf, or do you have serious difficulty hearing No 03/13/2022 1:46 PM Amaris Valera, [place] No [facility] 03-13-2022 Are you blind, or do you have serious difficulty seeing, even when wearing glasses No 03/13/2022 1:46 PM Amaris Valera, [place] No [facility] 03-13-2022 Do you have serious difficulty walking or climbing stairs No 03/13/2022 1:46 PM Amaris Valera, [place] 03-13-2022 Do you have difficul ty dressing or bathing No 03/13/2022 1:46 PM Amaris Valera, [place] [facility] 03-13-2022 Because of a physica l, mental, or emotional condition, do you have difficulty doing errands alone such as visiting a physician's office or shopping No 03/13/2022 1:46 PM Amaris Valera, [place] No [facility] Mental Status Date Assessment Result Facility 03-13-2022 Because of a physica l, mental, or emotional condition, do you have serious difficulty concentrating, remembering, or making decisions No 03/13/2022 1:46 PM Amaris Valera, [facility] No [facility] Clinical Note 08-08-2024 Note Date & Type Note Facility 08-08-2024 Note Patient Outreach (AG UMESH) -- ANA JONES ([id number]) 1955 F Date Time Provider Department 08/08/24 MARIBELL SWAN During your visit today, we recorded the following information about you: Allergies As of Date: 08/08/2024 (No Known Allergies) Date Reviewed: 04/20/2022 Reviewed by: Maribell Swan, - Fully Assessed Visit Diagnosis:Encounter for screening mammogram for breast cancer [Z12.31] Order(s):ZAC JENKINS [[id number]] Order #: [id number] FUTURE Prescriptions as of 09/08/2024 - ascorbic acid, vitamin C, (VITAMIN C) 500 mg tablet Take 1 tablet by mouth twice daily with meals. - ferrous sulfate 325 mg (65 mg iron) tablet Take 1 tablet by mouth twice daily with meals. - pantoprazole DR (PROTONIX) 40 mg tablet Take 1 tablet by mouth DAILY (6 AM). - acetaminophen (TYLENOL) 500 mg tablet Take 2 tablets by mouth every 8 hours as needed for pain or fever (specify) (temp 101F). Problem List As Of Date 08/08/2024 Noted Resolved Other iron deficiency anemias [D50.8] 03/12/2022 History of hepatitis C [Z86.19] 03/12/2022 Acute left-sided back pain [M54.9] 03/12/2022 Encounter Status:Closed by GABRIELA GARCIAUSER on 09/08/24 [facility] Discharge summary note 03-23-2024 Note Date & Type Note Facility 03-23-2024 Note [facility] Medical Records Department [address] [place] [address] Discharge Summary 03/23/24 1114 MR#: [id number] Acct: [id number] Name: KATE JONES Rep #: [id number] : [id number] From: Salvador Georges DO PCP: Care Physician,No Primary Status:ADM IN [id number] Prov[facility] Date of Admission: 03/22/24 Primary Care Physician: Loren Primary Care Phys Consultations 03/22/24 00:54 Consult: Cardiology Routine Consulting Provider: Franko Cast Reason for Consult: Chest Pain EMERGENT Consult: No MD Notified: Yes Date Notified: 03/22/24 Time Notified: 00:23 Method of Notification: ED Physician Initiated Method of Consult:: In-Person Reason For Visit: CHEST PAIN WITH ELEVATED TROPONIN CONSISTENT WITH Diagnosis Discharge Diagnosis (1) NSTEMI, initial episode of care: Status: Acute Code(s): I21.4 - Non-ST elevation (NSTEMI) myocardial infarction (2) History of tobacco abuse: Status: Acute Code(s): Z87.891 - Personal history of nicotine dependence (3) Chronic hepatitis C: Status: Chronic Code(s): B18.2 - Chronic viral hepatitis C Qualifiers: Hepatic coma status: without hepatic coma Qualified Code(s): B18.2 - Chronic viral hepatitis C (4) Anemia: Status: Acute Code(s): D64.9 - Anemia, unspecified Qualifiers: Anemia type: iron deficiency Iron deficiency anemia type: unspecified iron deficiency Q ualified Code(s): D50.9 - Iron deficiency anemia, unspecified (5) Osteoarthritis: Status: Acute Code(s): M19.90 - Unspecified osteoarthritis, unspecified site Qualifiers: Osteoarthritis location: unspecified site Osteoarthritis type: unspecified Qualified Code(s): M19.90 - Unspecified osteoarthritis, unspecified site Plan NSTEMI * troponins 396 to 941. * meds: ASA, metoprolol tartrate, atorvastatin, ticagrelor. Advised of the risks of in-stent stenosis if she does not take her DAPT as directed. * pt had stent to PCI. * Echo shows an EF 55%. * Follow up with cardiology as outpt. VTE prophylaxis: not indicated as she is already anticoagulated. Medications at Discharge Home Medications ferrous sulfate 325 mg (65 mg iron) tablet 325 mg PO BID 03/21/24 aspirin 81 mg tablet,delayed release 81 mg PO BREAKFAST #0 tabs 03/23/24 atorvastatin 40 mg tablet 40 mg PO QHS #30 tabs 03/23/24 lisinopril 10 mg tablet 10 mg PO DAILY #30 tabs 03/23/24 metoprolol tartrate 25 mg tablet 25 mg PO BID #60 tabs 03/23/24 ticagrelor 90 mg tablet (Brilinta) 90 mg PO BID #60 tabs 03/23/24 Hospital Course Operations None Procedures 2-D Echocardiogram and Cardiac catheterization Summary of Care Provided Minutes Spent on Discharge: 32 Hospital Course: Patient presents with chest pain and was found to have a non-ST ovation myocardial infarction. Patient received a stent to her LAD, proximal. Patient tolerated procedure well. Patient was monitored overnight had no further events the patient be discharged home in stable condition. Weight / BMI Weight Weight: 67.7 kg Body Mass Index (BMI) 24.8 ABG / Lab / Microbiology Data 03/23/24 06:18 03/23/24 06:18 Laboratory: Laboratory Results - last 24 hr 03/23/24 06:18: WBC 5.2, RBC 4.66, Hgb 13.4, Hct 40.4, MCV 86.7, MCH 28.8, MCHC 33.2, RDW Std Deviation 41.1, RDW Coeff of Trevor 13.2, Plt Count 185, MPV 11.0, Sodium 136, Potassium 3.7, Chloride 107, Carbon Dioxide 22.0, Anion Gap 7, BUN 14, Creatinine 0.65, Estim Creat Clear Calc 61.40, Est GFR (MDRD) Af Amer 117, Est GFR (MDRD) Non-Af 97, BUN/Creatinine Ratio 21.6 H, Glucose 85, Calcium 9.0, Total Bilirubin 1.00, AST 30, ALT 19, Alkaline Phosphatase 61, Total Protein 7.5, Albumin 3.7, Globulin 3.8, Albumin/Globulin Ratio 1.0 Radiography Diagnostic Testing: Radiology Impression Echocardiogram 03/22/24 05:55 Interpretation Summary Normal LV size. Left ventricular systolic function is normal. The left ventricular ejection fraction is 55 %. Mildly dilated aortic root. Ordering Physician: Collin Young Referring Physician: NO PCP Performed By: Maynor DURAN RDCS, Renay and Student D/C Instructions Discharge Diet: Low fat / Low cholesterol DC O2, CPAP, BIPAP Needs Additional Home O2 Discharge instructions: No DC home with Oxygen: No Meaningful Use Info Meaningful Use Meaningful Use Diagnoses (Choose all that apply): AMI AMI/Post PCI/Angioplasty Aspirin given w/in 24hrs of arrival?: Yes ASA at discharge?: Yes Antiplatelet Therapy at Discharge:: Yes Statins at discharge?: Yes Tobias/ARB at discharge?: Yes Beta Kiersten at discharge?: Yes Done w/ Acute [place] measure.: Yes Documented LVEF (%): 55 Ischemic Stroke Statin Dosing Therapy Refe (more content not included)... [facility] History of Present illness Narrative 04-20-2022 Maribell Foley Jose Alejandro, DO - 04/20/2022 10:33 AM EST Note Date & Type Note Facility 04-20-2022 History of Presen t illness Narrative SUBJECTIVE: 66 year old female for annual routine pap and checkup. I have fully reviewed the past medical, surgical, social and family history and updated the Histories section of [facility]. She has a history of anemia Her fecal occult blood test was negative She is taking iron once a day, rather than twice. Her Hb has been improving over the past month She had a total hysterectomy, no longer needs pap tests. She eats a healthy diet, and is going to start riding her indoor [employer] bicycle regularly. She does not use tobacco [...] F) Resp 16 Ht 160.7 cm (5' 3.25) Wt 67.6 kg (149 lb) SpO2 100% [...] diet of 1000 mg/day for under 50, 0157-4619 mg/day for 50+ 2. Other iron deficiency [...] Z90.710 Pt no longer needs pap tests Maribell Swan DO documented in this encounter [facility] History of Present illness Narrative 03-23-2022 Maribell Swan DO - 03/23/2022 2:42 PM EST Note Date & Type Note Facility 03-23-2022 History of Presen t illness Narrative Subjective HPI Pt is here for acute visit after hospitalization. She does not plan on establishing with this office. She would like to establish with primary care at [facility] in [place]. She injured her back at work, was seen in the ED on 03/12/22 She was hospitalized at [facility] from 03/12 to 03/13 for an incidental [...] F) Resp 16 Ht 160.7 cm (5' 3.25) Wt 66.1 kg (145 lb 12.8 oz) [...] HEMOGLOBIN (HGB) Pt will f/u with Dr. Farris, GI If anemia is not GI related recommend pt be referred to community development technician. 2. Elevated blood pressure reading without diagnosis of hypertension - ICD9: 796.2, ICD10: R03.0 - Encouraged dietary sodium restriction/DASH diet - Recommended regular aerobic exercise. - Recommend home blood pressure monitoring, to bring results in on next visit - Goal of BP <130/80 Maribell Swan DO documented in this encounter [facility] Note 03-12-2022 Telephone Encounter - Amaris Crawford MD - 03/12/2022 10:03 AM EST Note Date & Type Note Facility 03-12-2022 Miscellaneous Notes Formattin g of this note might be different from the original. RQB note error documented in this encounter [facility] Evaluation note Note Date & Type Note Facility Evaluation note Diagnosis Other iron deficiency anemia- Primary Elevated blood pressure reading without diagnosis of hypertension documented in this encounter [facility] Evaluation note Note Date & Type Note Facility Evaluation note Diagnosis Well adult exam- Primary Routine general medical examination at a health care facility Other iron deficiency anemias Elevated blood pressure reading without diagnosis of hypertension GERD without esophagitis Esophageal reflux Status post hysterectomy Acquired absence of both cervix and uterus documented in this encounter [facility] Evaluation note Note Date & Type Note Facility Evaluation note Diagnosis Encounter for screening mammogram for breast cancer documented in this encounter [facility] Summary Purpose Family History No Family History Records FoundNo Family History Records FoundNo Family History Records Found Advance Directives No Advanced Directives Records FoundNo Advanced Directives Records FoundNo Advanced Directives Records Found Additional Source Comments Source Comments (unrecognize d section and content) In the event this informatio n is protected by the Federal Confidentiality of Alcohol and Drug Abuse Patient Records regulations: The Federal rules restrict any use of the information to criminally investigate or prosecute any alcohol or drug abuse patient.[facility] the event this information is protected by the Federal Confidentiality of Alcohol and Drug Abuse Patient Records regulations: The Federal rules restrict any use of the information to criminally investigate or prosecute any alcohol or drug abuse patient.[facility] the event this information is protected by the Federal Confidentiality of Alcohol and Drug Abuse Patient Records regulations: The Federal rules restrict any use of the information to criminally investigate or prosecute any alcohol or drug abuse patient.[facility] the event this information is protected by the Federal Confidentiality of Alcohol and Drug Abuse Patient Records regulations: The Federal rules restrict any use of the information to criminally investigate or prosecute any alcohol or drug abuse patient.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 Was recently diagnosed with anemia and had a blood transfusion Reason Comments review blood work and medications Care Teams (unrecognized sec tion and content) [employer] Relationship Specialty Start Date End Date Pcp, No PCP - General 11/15/21 06/02/22 [employer] Relationship Specialty Start Date End Date Maribell Swan DO [address] [place] [address] PCP - General Family Medicine 03/23/22 [employer] Relationship Specialty Start Date End Date Maribell Swan DO [address], [place] [id number] PCP - General Family Medicine 03/23/22 Metal [employer] Relationship Specialty Start Date End Date Maribell Swan DO [address], [place] [id number] PCP - General Family Medicine 03/23/22 INFORMATION SOURCE (unrecogn ized section and content) DATE CREATED AUTHOR 03/13/2022 [facility] DATE CREATED AUTHOR AUTHOR'S ORGANIZ ATION 05/16/2024 [facility] DATE CREATED AUTHOR AUTHOR'S ORGANIZ ATION 09/10/2024 [facility] FOR RECORDS PERTAINING TO PATIENTS WHO [...] BE BASED ON THE PRIMARY CLINICAL RECORDS. [employer] [facility]. provides no warranty or guarantee of the accuracy or completeness of information in this document.
[2025-04-24 10:56] LABS: Hematocrit 40.8 % (37-47); Hemoglobin 13.5 g/dL (12.0-15.0); Immature Granulocytes Count 0.000 X10^3/uL (0.0-0.0); Mean Corp Hgb Conc 33.1 g/dL (32-36); Mean Corpuscular Volume 89.3 fL (81-99); Mean Platelet Vol. 11.2 fl (6.2-12.0); NRBC Flagged by Analyzer 0 % (0-5); Platelet Count 185 K/mm3 (150-450); RBC Distribution Width CV 13.5 % (11.6-14.6); RBC Distribution Width SD 44.2 fl (35.1-43.9); Red Blood Count 4.57 M/mm3 (4.2-5.4); White Blood Count 4.1 K/mm3 (4.4-11.0)
[2025-04-24 11:32] LABS: AST(SGOT) 92 U/L (<=31); Alanine Aminotransfer ALT/SGPT 103 U/L (<=34); Albumin, Serum 4.4 g/dL (3.4-4.8); Alkaline Phosphatase 91 U/L (35-104); Anion Gap 8 (7-18); BUN 16 mg/dL (4-19); BUN/Creat Ratio 21.8 RATIO (10-20); Calcium,Total 9.3 mg/dL (7.6-11.0); Carbon Dioxide 26.8 mmol/L (20.0-29.0); Chloride 102 mmol/L (96-106); Cholesterol 140 mg/dL (<=200); Globulin 3.2 g/dL (2.2-4.2); Glucose 93 mg/dL (70-99); Low Density Lipoprotein Calc. 70 mg/dL; Potassium 4.4 mmol/L (3.5-5.1); Triglycerides 79 mg/dL; Very Low Density Lipoprotein 16 mg/dL (5-40); cholesterol:hdl ratio screen 2.58
== END | disposition home or self-care (01) ==
LOC: LAB 10:05
PROVIDERS: PCP Family Medicine; Referring Provider Student in an Organized Health Care Education/Training Program; Visit Provider Student in an Organized Health Care Education/Training Program
DX: I25.10 Atherosclerotic heart disease of native coronary artery without angina pectoris (principal)
CPT/HCPCS: 36415; 80053; 80061; 85025